=== PATIENT | female | born 1980 | race Caucasian/White ===

== ENCOUNTER 2016-12-27 12:51 | Emergency (ER) | payer MEDICARE, OTHER | END 2016-12-27 14:00 | disposition home or self-care (01) | LOC: JP.ED 12:51 | DX: Z53.21 Procedure and treatment not carried out due to patient leaving prior to being seen by health care provider (principal) ==

== ENCOUNTER 2016-12-27 16:47 | Emergency (ER) | payer MEDICARE, SELFPAY ==
[2016-12-27 17:04] VITALS: BP 164/98
[2016-12-27] MEDS ORDERED: Ketorolac 60 MG/2 ML SDV IM ONE (17:51)
[2016-12-27] MEDS ORDERED: LORazepam 2 MG/ML MDV IM ONE (17:52)
[2016-12-27] MEDS ORDERED: Benzonatate 100 MG Cap PO ONE (17:52)
--- NOTE | 2016-12-27 17:57 | EDM.PDOC ---
ED HPI Trauma - General Chief Complaint: Upper Extremity Injury/Pain Stated Complaint: FELL 1 WK AGO Time Seen by Provider: 12/27/16 17:53 Source: Reports: Patient, Old records, RN notes reviewed History Limitations: Reports: No limitations - History of Present Illness INITIAL COMMENTS - FREE TEXT/NARRATIVE: 36-year-old female presents emergency department a complaint of cough and left shoulder pain, she was evaluated in the clinic on the of this month for upper respiratory tract infection treatment was provided with symptomatic she was here earlier in the emergency department had registered this afternoon but had a prior engagement which she left without being seen she has now returnedfor evaluation Allergies/ADRs: Allergies latex Allergy (Verified 02/11/16 03:39) Itching morphine Allergy (Verified 02/11/16 03:39) Hives codeine Adverse Reaction (Verified 02/11/16 03:39) Vomiting Home Medications: Ambulatory Orders Gabapentin [Neurontin] 600 mg PO BID 06/21/13 [Confirmed 12/27/16] Cyclobenzaprine [Flexeril] 10 mg PO TID PRN 10/24/13 [Confirmed 12/27/16] Haloperidol [Haldol] 7 mg PO DAILY 10/24/13 [Confirmed 12/27/16] Haloperidol [Haldol] 10 mg PO BEDTIME 10/24/13 [Confirmed 12/27/16] Potassium Chloride [Klor-Con] 20 meq PO BID 10/24/13 [Confirmed 12/27/16] Propranolol [Inderal] 20 mg PO BID 10/24/13 [Confirmed 12/27/16] Verapamil [Calan SR] 120 mg PO QAM 10/24/13 [Confirmed 12/27/16] busPIRone [Buspar] 15 mg PO BID 10/24/13 [Confirmed 12/27/16] lamoTRIgine [Lamictal] 200 mg PO BID 10/24/13 [Confirmed 12/27/16] Albuterol Sulfate [Proair Hfa] 2 inhalation INH ASDIRECTED PRN 10/25/13 [ Confirmed 12/27/16] Fluticasone Propionate [Flovent HFA 110 MCG] 1 puff INH BID 10/25/13 [Confirmed 12/27/16] Ibuprofen [Motrin] 200 mg PO Q6H PRN 10/25/13 [Confirmed 12/27/16] Venlafaxine HCl [Venlafaxine ER] 300 mg PO DAILY 10/25/13 [Confirmed 12/27/16] Verapamil HCl [Verapamil ER] 240 mg PO QPM 10/25/13 [Confirmed 12/27/16] Benztropine [Cogentin] 1 mg PO BID 05/24/15 [Confirmed 12/27/16] medroxyPROGESTERone Acetate [Depo-Provera] 150 mg IM ASDIRECTED 02/05/16 [ Confirmed 12/27/16] Past Medical History Cardiovascular History: Reports: Hypertension Respiratory History: Reports: Asthma Gastrointestinal History: Reports: Cholelithiasis [employer] History: Reports: , 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 Depo- injections every 3 months. Musculoskeletal History: Reports: Back pain, chronic, Fracture, Fibromyalgia, Other (see below) Other Musculoskeletal History: fx r elbow Neurological History: Reports: Migraines, Seizure Psychiatric History: Reports: ADHD, Addiction, Anxiety, Bipolar, Depression Other Psychiatric History: Borderline personality disorder, schizoaffective disorder, self cutting behviors in past. Hematologic History: Reports: Anemia Other Dermatologic History: ectodermal dysplasia - Infectious Disease History Infectious Disease History: Reports: Chicken pox - Past Surgical History GI Surgical History: Reports: Bariatric procedure, Cholecystectomy, Colonoscopy , EGD, Hernia repair/other Other GI Surgeries/Procedures: tummy tuck Female Surgical History: Reports: section Musculoskeletal Surgical History: Reports: Other (see below) Other Musculoskeletal Surgeries/Procedures:: neuro stimulator implant to help with lower backpain, discectomy August 2015 Social & Family History - Family History Family Medical History: Noncontributory Endocrine/Metabolic: Reports: Diabetes, type II - Tobacco Use Smoking Status *Q: Current Every Day Smoker Years of Tobacco use: 16 Packs/Tins Daily: 1 Used Tobacco, but Quit: No Month Tobacco Last Used: August Second Hand Smoke Exposure: Yes - Caffeine Use Caffeine Use: Reports: Coffee - Alcohol Use Days Per Week of Alcohol Use: 0 Number of Drinks Per Day: 5 Total Drinks Per Week: 0 - Recreational Drug Use Recreational Drug Use: No Drug Use in Last 12 Months: Yes Recreational Drug Type: Reports: Methamphetamine Recreational Drug Use Frequency: Socially Recreational Drug Last Use: 04/05/15 Review of Systems - Review of Systems Review Of Systems: See Below Constitutional: Reports: no symptoms Eyes: Reports: no symptoms Ears: Reports: no symptoms Nose: Reports: no symptoms Mouth/Throat: Reports: no symptoms Respiratory: Reports: shortness of breath, cough. Denies: sputum Cardiovascular: Reports: chest pain (rib pain) GI/Abdominal: Reports: No symptoms Genitourinary: Reports: no symptoms Musculoskeletal: Reports: shoulder pain Trauma Exam - Physical Exam Exam: See Below Text/Narrative:: General: obese female tearful very anxious coughing, but not in any distress, alert and oriented x3 HEENT: head is atraumatic normocephalic, eyes pupils equal round reactive to light and accommodation sclera clear no conjunctivitis appreciated. Ears tympanic membranes clear and pyle landmarks and light reflex are present bilaterally canals are clear. Nose no septal deviation, nares are clear, no blood present. Mouth mucosa is moist and pink no erythema or exudate noted in soft palate, tongue is midline uvula is midline, dentures in place. Neck: Supple no thyromegaly no tracheal deviation. Nodes: Cervical nodes subclavicular nodes nontender no palpable lymphadenopathy noted. Lungs: coarse breath sounds bilaterally both upper and lower lung brown CV: tachycardic rate and rhythm S1 and S2 appreciated no murmurs rubs or gallops noted. Abdomen: Soft, obese,nontender, no palpable masses or organomegaly appreciated, no distention no guarding bowel sounds are present, . Neuro: Cranial nerves II through XII grossly intact Skin: Warm and dry, intact Course - Vital Signs Last Recorded V/S: Last Vital Signs Temp 96.4 F 12/27/16 17:03 Pulse 138 H 12/27/16 17:03 Resp 18 12/27/16 17:03 BP 164/98 H 12/27/16 17:03 Pulse Ox 98 12/27/16 17:03 - Orders/Labs/Meds Orders: Active Orders 24 hr Category Date Time Status Chest 2V [CR] Urgent Exams 12/27/16 17:51 Taken Shoulder Comp Rt [CR] Stat Exams 12/27/16 17:52 Taken Labs: Laboratory Tests 12/27/16 12/27/16 12/27/16 Range/Units 17:53 18:03 18:03 WBC 9.5 (4.5-11.0) K/uL RBC 4.14 (3.30-5.50) M/uL Hgb 14.7 (12.0-15.0) g/dL Hct 41.0 (36.0-48.0) % MCV 99 H (80-98) fL MCH 36 H (27-31) pg MCHC 36 (32-36) % Plt Count 306 (150-400) K/uL Neut % (Auto) 54 (36-66) % Lymph % (Auto) 37 (24-44) % Graham % (Auto) 6 (2-6) % Eos % (Auto) 3 (2-4) % Baso % (Auto) 1 (0-1) % Sodium 145 (140-148) mmol/L Potassium 3.9 (3.6-5.2) mmol/L Chloride 111 H (100-108) mmol/L Carbon Dioxide 17 L (21-32) mmol/L Anion Gap 20.9 H (5.0-14.0) mmol/L BUN 11 (7-18) mg/dL Creatinine 1.2 H (0.6-1.0) mg/dL Est Cr Clr Drug Dosing 61.85 mL/min Estimated GFR (MDRD) 51 L (>60) Glucose 97 (74-106) mg/dL Calcium 8.7 (8.5-10.1) mg/dL Urine Color Urine Appearance Urine pH (4.5-8.0) Ur Specific [place] (1.008-1.030) Urine Protein (NEGATIVE) mg/dL Urine Glucose (UA) (NEGATIVE) mg/dL Urine Ketones (NEGATIVE) mg/dL Urine Occult Blood (NEGATIVE) Urine Nitrite (NEGATIVE) Urine Bilirubin (NEGATIVE) Urine Urobilinogen (NORMAL) mg/dL Ur Leukocyte Esterase (NEGATIVE) Urine RBC (0-5) Urine WBC (0-5) Ur Epithelial Cells Amorphous Sediment Urine Bacteria Urine Mucus Urine Opiates Screen (NEGATIVE) Ur Oxycodone Screen (NEGATIVE) Urine Methadone Screen (NEGATIVE) Ur Propoxyphene Screen (NEGATIVE) Ur Barbiturates Screen (NEGATIVE) Ur Tricyclics Screen (NEGATIVE) Ur Phencyclidine Scrn (NEGATIVE) Ur Amphetamine Screen (NEGATIVE) U Methamphetamines Scrn (NEGATIVE) Urine MDMA Screen (NEGATIVE) U Benzodiazepines Scrn (NEGATIVE) U Cocaine Metab Screen (NEGATIVE) U Marijuana (THC) Screen (NEGATIVE) Ethyl Alcohol 112 mg/dL 03/13/17 03/13/17 Range/Units 18:11 18:11 WBC (4.5-11.0) K/uL RBC (3.30-5.50) M/uL Hgb (12.0-15.0) g/dL Hct (36.0-48.0) % MCV (80-98) fL MCH (27-31) pg MCHC (32-36) % Plt Count (150-400) K/uL Neut % (Auto) (36-66) % Lymph % (Auto) (24-44) % Graham % (Auto) (2-6) % Eos % (Auto) (2-4) % Baso % (Auto) (0-1) % Sodium (140-148) mmol/L Potassium (3.6-5.2) mmol/L Chloride (100-108) mmol/L Carbon Dioxide (21-32) mmol/L Anion Gap (5.0-14.0) mmol/L BUN (7-18) mg/dL Creatinine (0.6-1.0) mg/dL Est Cr Clr Drug Dosing mL/min Estimated GFR (MDRD) (>60) Glucose (74-106) mg/dL Calcium (8.5-10.1) mg/dL Urine Color Yellow Urine Appearance Clear Urine pH 7.0 (4.5-8.0) Ur Specific [place] 1.010 (1.008-1.030) Urine Protein Negative (NEGATIVE) mg/dL Urine Glucose (UA) Normal (NEGATIVE) mg/dL Urine Ketones Negative (NEGATIVE) mg/dL Urine Occult Blood Negative (NEGATIVE) Urine Nitrite Negative (NEGATIVE) Urine Bilirubin Negative (NEGATIVE) Urine Urobilinogen Normal (NORMAL) mg/dL Ur Leukocyte Esterase Negative (NEGATIVE) Urine RBC 0-5 (0-5) Urine WBC 0-5 (0-5) Ur Epithelial Cells Rare Amorphous Sediment Not seen Urine Bacteria Not seen Urine Mucus Not seen Urine Opiates Screen Negative (NEGATIVE) Ur Oxycodone Screen Negative (NEGATIVE) Urine Methadone Screen Negative (NEGATIVE) Ur Propoxyphene Screen Negative (NEGATIVE) Ur Barbiturates Screen Negative (NEGATIVE) Ur Tricyclics Screen Negative (NEGATIVE) Ur Phencyclidine Scrn Positive H (NEGATIVE) Ur Amphetamine Screen Negative (NEGATIVE) U Methamphetamines Scrn Negative (NEGATIVE) Urine MDMA Screen Negative (NEGATIVE) U Benzodiazepines Scrn Negative (NEGATIVE) U Cocaine Metab Screen Negative (NEGATIVE) U Marijuana (THC) Screen Negative (NEGATIVE) Ethyl Alcohol mg/dL Meds: Medications Discontinued Medications Generic Name Dose Route Start Last Admin Trade Name Eloise PRN Reason Stop Dose Admin Benzonatate 200 mg 12/27/16 17:52 12/27/16 18:02 Tessalon Perles PO 12/27/16 17:53 200 mg ONETIME ONE Administration Ketorolac Tromethamine 60 mg 12/27/16 17:51 12/27/16 18:02 Toradol IM 12/27/16 17:52 60 mg ONETIME ONE Administration Lorazepam 1 mg 12/27/16 17:52 12/27/16 18:01 Ativan IM 12/27/16 17:53 1 mg ONETIME ONE Administration Departure - Departure Time of Disposition: 18:35 Disposition: Home, Self-Care 01 Condition: good Clinical Impression: Cough Right shoulder strain Qualifiers: Encounter type: initial encounter Qualified Code(s): S46.911A - Strain of unspecified muscle, fascia and tendon at shoulder and upper arm level, right arm , initial encounter Forms: ED Department Discharge Additional Instructions: use hydrocodone as need for pain control and use Tessalon Perles as needed help suppress the cough, Please followup with your primary care provider in 3 to 5 days if not better, please call return to the emergency department with worsening of symptoms. - My Orders Last 24 Hours: My Active Orders 12/27/16 17:51 Chest 2V [CR] Urgent 12/27/16 17:52 Shoulder Comp Rt [CR] Stat - Assessment/Plan Last 24 Hours: My Active Orders 12/27/16 17:51 Chest 2V [CR] Urgent 12/27/16 17:52 Shoulder Comp Rt [CR] Stat Plan: Assessment Acuity = acute Site and laterality = post viral cough, shoulder strain right side Etiology =secondary recent urinary tract infection, shoulder strain secondary to fall one week ago Manifestations = none Location of injury = home Lab values = CBC unremarkable creatinine mildly elevated at 1.2 consistent with acute renal failure stage G2, chest x-ray and shoulder x-ray I did review films myself I cannot appreciate any acute process, the official read from radiology is pending, alcohol level 112, urine drug screen positive for PCP probable cross contaminant with dextromethorphan Plan she had good relief with the combination of Toradol and Tessalon Perles coughing significantly improved and improvement with pain of her followup with her primary care in the next 3-5 days no improvement Patient was in agreement with the plan all questions were answered, they were instructed to return to the emergency department or call for worsening symptoms. This note was dictated using [employer] voice recognition software please call with any questions.
--- NOTE | 2016-12-28 08:43 | CR ---
Chest 2V HISTORY: No Clinical Info FINDINGS: Heart size within normal limits. Pulmonary vasculature within normal limits. No evidence f or focal consolidation or cardiopulmonary process. Remote bilateral rib fractures. IMPRESSION: No radiographic evidence for acute cardiopulmonary process.
--- NOTE | 2016-12-28 08:47 | CR ---
Right shoulder. Findings: Mild degenerative changes glenohumeral joint. No fracture.
== END 2016-12-27 18:46 | disposition home or self-care (01) ==
LOC: JP.ED 16:47
DX: R05 Cough (principal); S46.911A Strain of unspecified muscle, fascia and tendon at shoulder and upper arm level, right arm, initial encounter; W19.XXXA Unspecified fall, initial encounter; I10 Essential (primary) hypertension; J45.909 Unspecified asthma, uncomplicated; F90.9 Attention-deficit hyperactivity disorder, unspecified type; F41.8 Other specified anxiety disorders; F31.9 Bipolar disorder, unspecified; F60.9 Personality disorder, unspecified; F20.9 Schizophrenia, unspecified; F17.200 Nicotine dependence, unspecified, uncomplicated; Z88.8 Allergy status to other drugs, medicaments and biological substances; Z79.899 Other long term (current) drug therapy
CPT/HCPCS: 36415; 71020; 73030; 80048; 80305; 81001; 85025; A9270; G0480; J1885; J2060; 96372; 99283; 99284-25

== ENCOUNTER 2017-01-04 07:28 | Emergency (ER) | payer MEDICARE, SELFPAY ==
[2017-01-04 07:59] VITALS: BP 155/101
[2017-01-04] MEDS ORDERED: Ketorolac 60 MG/2 ML SDV IM ONE (08:20)
[2017-01-04] MEDS ORDERED: Cyclobenzaprine 10 MG Tab PO ONE (08:20)
[2017-01-04] MEDS ORDERED: Albuterol 0.083% 2.5 MG/3 ML Neb Soln NEB ONE (08:25)
--- NOTE | 2017-01-04 08:25 | EDM.PDOC ---
ED HPI GENERAL MEDICAL PROBLEM - General Chief Complaint: General Stated Complaint: BAD COUGH/SWEATING REALLY BAD/IN PAIN Time Seen by Provider: 01/04/17 08:21 Source of Information: Reports: Patient History Limitations: Reports: No limitations - History of Present Illness INITIAL COMMENTS - FREE TEXT/NARRATIVE: t has severe pain in the left rib cage area. She is quite sweaty and crying. She did have some hydrocodone that was given to her a few days ago and they are gone. Onset: gradual Duration: Day(s):, Other (pt is coughing quite hard and she feels this is the cause of the pain. ) Location: Reports: chest Associated Symptoms: Reports: chest pain, cough - Related Data Allergies Allergy/AdvReac Type Severity Reaction Status Date / Time latex Allergy Itching Verified 02/11/16 03:39 morphine Allergy Hives Verified 02/11/16 03:39 codeine AdvReac Vomiting Verified 02/11/16 03:39 Home Meds: Home Meds Gabapentin [Neurontin] 600 mg PO BID 06/21/13 [History] Cyclobenzaprine [Flexeril] 10 mg PO TID PRN 10/24/13 [History] Haloperidol [Haldol] 7 mg PO DAILY 10/24/13 [History] Haloperidol [Haldol] 10 mg PO BEDTIME 10/24/13 [History] Propranolol [Inderal] 20 mg PO BID 10/24/13 [History] Verapamil [Calan SR] 120 mg PO QAM 10/24/13 [History] busPIRone [Buspar] 15 mg PO BID 10/24/13 [History] lamoTRIgine [Lamictal] 200 mg PO BID 10/24/13 [History] Albuterol Sulfate [Proair Hfa] 2 inhalation INH ASDIRECTED PRN 10/25/13 [History ] Fluticasone Propionate [Flovent HFA 110 MCG] 1 puff INH BID 10/25/13 [History] Ibuprofen [Motrin] 200 mg PO Q6H PRN 10/25/13 [History] Venlafaxine HCl [Venlafaxine ER] 300 mg PO DAILY 10/25/13 [History] Verapamil HCl [Verapamil ER] 240 mg PO QPM 10/25/13 [History] Benztropine [Cogentin] 1 mg PO BID 05/24/15 [History] medroxyPROGESTERone Acetate [Depo-Provera] 150 mg IM ASDIRECTED 02/05/16 [ History] Benztropine Mesylate 2 tab PO Q6HR 01/04/17 [History] Past Medical History Cardiovascular History: Reports: Hypertension Respiratory History: Reports: Asthma Gastrointestinal History: Reports: Cholelithiasis [employer] History: Reports: , 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 Depo- injections every 3 months. Musculoskeletal History: Reports: Back pain, chronic, Fracture, Fibromyalgia, Other (see below) Other Musculoskeletal History: fx r elbow Neurological History: Reports: Migraines, Seizure Psychiatric History: Reports: ADHD, Addiction, Anxiety, Bipolar, Depression Other Psychiatric History: Borderline personality disorder, schizoaffective disorder, self cutting behviors in past. Hematologic History: Reports: Anemia Other Dermatologic History: ectodermal dysplasia - Infectious Disease History Infectious Disease History: Reports: Chicken pox - Past Surgical History GI Surgical History: Reports: Bariatric procedure, Cholecystectomy, Colonoscopy , EGD, Hernia repair/other Other GI Surgeries/Procedures: tummy tuck Female Surgical History: Reports: section Musculoskeletal Surgical History: Reports: Other (see below) Other Musculoskeletal Surgeries/Procedures:: neuro stimulator implant to help with lower backpain, discectomy August 2015 Social & Family History - Family History Family Medical History: Noncontributory Endocrine/Metabolic: Reports: Diabetes, type II - Tobacco Use Smoking Status *Q: Current Every Day Smoker Years of Tobacco use: 16 Packs/Tins Daily: 0.5 Used Tobacco, but Quit: No Month Tobacco Last Used: August Second Hand Smoke Exposure: Yes - Caffeine Use Caffeine Use: Reports: Coffee - Alcohol Use Days Per Week of Alcohol Use: 0 Number of Drinks Per Day: 5 Total Drinks Per Week: 0 - Recreational Drug Use Recreational Drug Use: No Drug Use in Last 12 Months: Yes Recreational Drug Type: Reports: Methamphetamine Recreational Drug Use Frequency: Socially Recreational Drug Last Use: 04/05/15 ED ROS GENERAL - Review of Systems Review Of Systems: See Below Constitutional: Reports: night sweats, other ( pt is very diaphoretic today. ) HEENT: Reports: No symptoms Respiratory: Reports: Cough Cardiovascular: Reports: No symptoms Endocrine: Reports: no symptoms GI/Abdominal: Reports: No symptoms : Reports: no symptoms Musculoskeletal: Reports: no symptoms Skin: Reports: no symptoms ED EXAM, GENERAL - Physical Exam Exam: See Below Free Text/Narrative:: Pt arrived with pain in the left rib cage. She states this is from coughing. She is crying and seemes very upset. sHE CANCINO BEEN GOING THROUGH A DIFFICULT TIME. Exam Limited By: No limitations General Appearance: alert, anxious, moderate distress, other ( CRYING AND UPSET. ) Ears: normal TMs Nose: normal inspection Throat/Mouth: Normal inspection Head: atraumatic Neck: normal inspection Respiratory/Chest: no respiratory distress, other (PT IS TENDER IN THE LEFT RIB CAGE AREA. sHE IS NOT COUGHING ALOT. ) Cardiovascular: regular rate, rhythm GI/Abdominal: soft, non tender (Female) Exam: Deferred Rectal (Female) Exam: Deferred Back Exam: normal inspection Extremities: normal inspection Neurological: alert, oriented, normal cognition Psychiatric: depressed mood, tearful Course - Vital Signs Last Recorded V/S: Last Vital Signs Temp 36.6 C 01/04/17 07:52 Pulse 108 H 01/04/17 07:52 Resp 14 01/04/17 07:52 BP 155/101 H 01/04/17 07:52 Pulse Ox 99 01/04/17 07:52 - Orders/Labs/Meds Orders: Active Orders 24 hr Category Date Time Status RT Aerosol Therapy [RC] ASDIRECTED Care 01/04/17 08:25 Active Labs: Laboratory Tests 01/04/17 01/04/17 01/04/17 Range/Units 07:45 07:45 08:02 WBC 8.7 (4.5-11.0) K/uL RBC 4.06 (3.30-5.50) M/uL Hgb 13.9 (12.0-15.0) g/dL Hct 41.4 (36.0-48.0) % MCV 102 H (80-98) fL MCH 34 H (27-31) pg MCHC 34 (32-36) % Plt Count 312 (150-400) K/uL Neut % (Auto) 64 (36-66) % Lymph % (Auto) 25 (24-44) % [place] % (Auto) 8 H (2-6) % Eos % (Auto) 2 (2-4) % Baso % (Auto) 1 (0-1) % Sodium 139 L (140-148) mmol/L Potassium 3.9 (3.6-5.2) mmol/L Chloride 103 (100-108) mmol/L Carbon Dioxide 27 (21-32) mmol/L Anion Gap 12.9 (5.0-14.0) mmol/L BUN 10 (7-18) mg/dL Creatinine 1.1 H (0.6-1.0) mg/dL Est Cr Clr Drug Dosing 66.19 mL/min Estimated GFR (MDRD) 56 L (>60) Glucose 119 H (74-106) mg/dL Calcium 9.2 (8.5-10.1) mg/dL Total Bilirubin 0.4 (0.2-1.0) mg/dL AST 15 (15-37) U/L ALT 32 (12-78) U/L Alkaline Phosphatase 197 H (46-116) U/L Total Protein 7.3 (6.4-8.2) g/dL Albumin 3.9 (3.4-5.0) g/dL Globulin 3.4 (2.3-3.5) g/dL Albumin/Globulin Ratio 1.1 L (1.2-2.2) Urine Color Urine Appearance Urine pH (4.5-8.0) Ur Specific [place] (1.008-1.030) Urine Protein (NEGATIVE) mg/dL Urine Glucose (UA) (NEGATIVE) mg/dL Urine Ketones (NEGATIVE) mg/dL Urine Occult Blood (NEGATIVE) Urine Nitrite (NEGATIVE) Urine Bilirubin (NEGATIVE) Urine Urobilinogen (NORMAL) mg/dL Ur Leukocyte Esterase (NEGATIVE) Urine RBC (0-5) Urine WBC (0-5) Ur Epithelial Cells Amorphous Sediment Urine Bacteria Urine Mucus Urine Opiates Screen Negative (NEGATIVE) Ur Oxycodone Screen Negative (NEGATIVE) Urine Methadone Screen Negative (NEGATIVE) Ur Propoxyphene Screen Negative (NEGATIVE) Ur Barbiturates Screen Negative (NEGATIVE) Ur Tricyclics Screen Negative (NEGATIVE) Ur Phencyclidine Scrn Negative (NEGATIVE) Ur Amphetamine Screen Negative (NEGATIVE) U Methamphetamines Scrn Negative (NEGATIVE) Urine MDMA Screen Negative (NEGATIVE) U Benzodiazepines Scrn Negative (NEGATIVE) U Cocaine Metab Screen Negative (NEGATIVE) U Marijuana (THC) Screen Negative (NEGATIVE) 01/04/17 Range/Units 08:02 WBC (4.5-11.0) K/uL RBC (3.30-5.50) M/uL Hgb (12.0-15.0) g/dL Hct (36.0-48.0) % MCV (80-98) fL MCH (27-31) pg MCHC (32-36) % Plt Count (150-400) K/uL Neut % (Auto) (36-66) % Lymph % (Auto) (24-44) % [place] % (Auto) (2-6) % Eos % (Auto) (2-4) % Baso % (Auto) (0-1) % Sodium (140-148) mmol/L Potassium (3.6-5.2) mmol/L Chloride (100-108) mmol/L Carbon Dioxide (21-32) mmol/L Anion Gap (5.0-14.0) mmol/L BUN (7-18) mg/dL Creatinine (0.6-1.0) mg/dL Est Cr Clr Drug Dosing mL/min Estimated GFR (MDRD) (>60) Glucose (74-106) mg/dL Calcium (8.5-10.1) mg/dL Total Bilirubin (0.2-1.0) mg/dL AST (15-37) U/L ALT (12-78) U/L Alkaline Phosphatase (46-116) U/L Total Protein (6.4-8.2) g/dL Albumin (3.4-5.0) g/dL Globulin (2.3-3.5) g/dL Albumin/Globulin Ratio (1.2-2.2) Urine Color Yellow Urine Appearance Clear Urine pH 7.0 (4.5-8.0) Ur Specific [place] 1.010 (1.008-1.030) Urine Protein Negative (NEGATIVE) mg/dL Urine Glucose (UA) Normal (NEGATIVE) mg/dL Urine Ketones Negative (NEGATIVE) mg/dL Urine Occult Blood Negative (NEGATIVE) Urine Nitrite Negative (NEGATIVE) Urine Bilirubin Negative (NEGATIVE) Urine Urobilinogen Normal (NORMAL) mg/dL Ur Leukocyte Esterase Negative (NEGATIVE) Urine RBC 0-5 (0-5) Urine WBC 0-5 (0-5) Ur Epithelial Cells Many Amorphous Sediment Rare Urine Bacteria Not seen Urine Mucus Few Urine Opiates Screen (NEGATIVE) Ur Oxycodone Screen (NEGATIVE) Urine Methadone Screen (NEGATIVE) Ur Propoxyphene Screen (NEGATIVE) Ur Barbiturates Screen (NEGATIVE) Ur Tricyclics Screen (NEGATIVE) Ur Phencyclidine Scrn (NEGATIVE) Ur Amphetamine Screen (NEGATIVE) U Methamphetamines Scrn (NEGATIVE) Urine MDMA Screen (NEGATIVE) U Benzodiazepines Scrn (NEGATIVE) U Cocaine Metab Screen (NEGATIVE) U Marijuana (THC) Screen (NEGATIVE) Meds: Medications Discontinued Medications Generic Name Dose Route Start Last Admin Trade Name Freq PRN Reason Stop Dose Admin Albuterol 2.5 mg 01/04/17 08:25 01/04/17 08:43 Proventil Neb Soln NEB 01/04/17 08:26 2.5 mg ONETIME ONE Administration Cyclobenzaprine HCl 10 mg 01/04/17 08:20 01/04/17 08:24 Flexeril PO 01/04/17 08:21 10 mg ONETIME ONE Administration Ketorolac Tromethamine 60 mg 01/04/17 08:20 01/04/17 08:24 Toradol IM 01/04/17 08:21 60 mg ONETIME ONE Administration - Re-Assessments/Exams Free Text/Narrative Re-Assessment/Exam: 01/04/17 09:05 pt was given totodol 60mg im and flexeril 10mg. She is crying but when her mother got here she stated Nicole was very depressed and was in some legal trouble. When the situation was discussed with Nicole she mainly wanted to tlk about the pain. She did admit to being more out of control. She has not been using her effexor because she states she can,t afford it. She tapered her self off and she is now not using any. She is on medicare and she has a 75 dollar copay. I did give her a discount card which might help with coverage othrwise she should be put on another antidepressant that she can afford. pT HAD A CHEST XRAY THAT WAS FOUND TO BE NORMAL hER LABS LOOKED GOOD. 01/05/17 08:51 Departure - Departure Time of Disposition: 09:10 Disposition: Home, Self-Care 01 Condition: fair Clinical Impression: Depression, Non compliance w medication regimen, Rib pain Instructions: Rib Contusion Referrals: Arie Gurrola PA-C [Primary Care Provider] - Forms: ED Department Discharge Care Plan Goals: Heat to the lft rib cage area, keep appt with [place] on Thur. Get back on her effexor or another antidepressant, tramodol 50mg 1 tab q6h prn for pain, May use tylenol with that, cool mist humidifier - My Orders Last 24 Hours: My Active Orders 01/04/17 08:25 RT Aerosol Therapy [RC] ASDIRECTED - Assessment/Plan Last 24 Hours: My Active Orders 01/04/17 08:25 RT Aerosol Therapy [RC] ASDIRECTED
--- NOTE | 2017-01-04 10:18 | CR ---
Chest 2V INDICATION: pain in chest FINDINGS: Comparison 12/27/2016. No change. Heart size normal. Epidural leads in place. Old right rib fractures.
== END 2017-01-04 09:23 | disposition home or self-care (01) ==
LOC: JP.ED 07:28
DX: F32.9 Major depressive disorder, single episode, unspecified (principal); R07.81 Pleurodynia; I10 Essential (primary) hypertension; J45.909 Unspecified asthma, uncomplicated; F31.9 Bipolar disorder, unspecified; F41.9 Anxiety disorder, unspecified; F17.210 Nicotine dependence, cigarettes, uncomplicated; Z91.14 Patient's other noncompliance with medication regimen; Z79.899 Other long term (current) drug therapy; Z90.49 Acquired absence of other specified parts of digestive tract; Z98.84 Bariatric surgery status; Z98.890 Other specified postprocedural states; Z88.5 Allergy status to narcotic agent; Z91.040 Latex allergy status
CPT/HCPCS: 36415; 71020; 80053; 80305; 81001; 85025; 96372; 99283; 99284; A9270; J1885

== ENCOUNTER 2017-01-31 05:48 | Emergency (ER) | payer MEDICARE, SELFPAY ==
[2017-01-31 06:09] VITALS: BP 131/99
--- NOTE | 2017-01-31 06:51 | EDM.PDOC ---
[id number] 4d LEFT SIDE RIB PAIN Time Seen by Provider: 01/31/17 06:30 Source of Information: Reports: Patient History Limitations: Reports: No limitations - History of Present Illness INITIAL COMMENTS - FREE TEXT/NARRATIVE: 36-year-old female has had persistent left anterior and lateral chest wall pain for the past several weeks. She has had several x-rays all normal, has been given hydrocodone and tramadol and continues to have discomfort. It is especially bad when she coughs or breathes. No fevers or chills. Onset: unknown/unsure Location: Reports: chest Severity: mild Associated Symptoms: Reports: chest pain. Denies: cough, fever/chills, shortness of breath Left Thoracic Pain Score (Numeric/FACES): 10 - Related Data Allergies Allergy/AdvReac Type Severity Reaction Status Date / Time latex Allergy Itching Verified 02/11/16 03:39 morphine Allergy Hives Verified 02/11/16 03:39 codeine AdvReac Vomiting Verified 02/11/16 03:39 Home Meds: Home Meds Gabapentin [Neurontin] 600 mg PO BID 06/21/13 [History] Cyclobenzaprine [Flexeril] 10 mg PO TID PRN 10/24/13 [History] Haloperidol [Haldol] 7 mg PO DAILY 10/24/13 [History] Haloperidol [Haldol] 10 mg PO BEDTIME 10/24/13 [History] Propranolol [Inderal] 20 mg PO BID 10/24/13 [History] Verapamil [Calan SR] 120 mg PO QAM 10/24/13 [History] busPIRone [Buspar] 15 mg PO BID 10/24/13 [History] lamoTRIgine [Lamictal] 200 mg PO BID 10/24/13 [History] Albuterol Sulfate [Proair Hfa] 2 inhalation INH ASDIRECTED PRN 10/25/13 [History ] Fluticasone Propionate [Flovent HFA 110 MCG] 1 puff INH BID 10/25/13 [History] Ibuprofen [Motrin] 200 mg PO Q6H PRN 10/25/13 [History] Venlafaxine HCl [Venlafaxine ER] 300 mg PO DAILY 10/25/13 [History] Verapamil HCl [Verapamil ER] 240 mg PO QPM 10/25/13 [History] Benztropine [Cogentin] 1 mg PO BID 05/24/15 [History] medroxyPROGESTERone Acetate [Depo-Provera] 150 mg IM ASDIRECTED 02/05/16 [ History] Benztropine Mesylate 2 tab PO Q6HR 01/04/17 [History] Past Medical History Cardiovascular History: Reports: Hypertension Respiratory History: Reports: Asthma Gastrointestinal History: Reports: Cholelithiasis 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 Depo- injections every 3 months. Musculoskeletal History: Reports: Back pain, chronic, Fracture, Fibromyalgia, Other (see below) Other Musculoskeletal History: fx r elbow Neurological History: Reports: Migraines, Seizure Psychiatric History: Reports: ADHD, Addiction, Anxiety, Bipolar, Depression, OCD , PTSD, Schizophrenia Other Psychiatric History: Borderline personality disorder, schizoaffective disorder, self cutting behviors in past. Endocrine/Metabolic History: Reports: Obesity/BMI 30+ Hematologic History: Reports: Anemia Other Dermatologic History: ectodermal dysplasia - Infectious Disease History Infectious Disease History: Reports: Chicken pox, Influenza - Past Surgical History GI Surgical History: Reports: Bariatric procedure, Cholecystectomy, Colonoscopy , EGD, Hernia repair/other Other GI Surgeries/Procedures: tummy tuck Female Surgical History: Reports: section Musculoskeletal Surgical History: Reports: Other (see below) Other Musculoskeletal Surgeries/Procedures:: neuro stimulator implant to help with lower backpain, discectomy August 2015 Social & Family History - Family History Family Medical History: Noncontributory Endocrine/Metabolic: Reports: Diabetes, type II - Tobacco Use Smoking Status *Q: Current Every Day Smoker Years of Tobacco use: 16 Packs/Tins Daily: 1 Used Tobacco, but Quit: No Month Tobacco Last Used: August Second Hand Smoke Exposure: Yes - Caffeine Use Caffeine Use: Reports: Coffee Other Caffeine Use: 2 cups a day - Alcohol Use Days Per Week of Alcohol Use: 1 Number of Drinks Per Day: 2 Total Drinks Per Week: 2 - Recreational Drug Use Recreational Drug Use: Yes Drug Use in Last 12 Months: Yes Recreational Drug Type: Reports: Marijuana/Hashish Recreational Drug Use Frequency: Rarely Recreational Drug Last Use: 04/05/15 ED ROS GENERAL - Review of Systems Review Of Systems: See Below Constitutional: Denies: fever, chills Respiratory: Reports: Pleuritic Chest Pain. Denies: Shortness of Breath Cardiovascular: Reports: Chest pain (Musculoskeletal) GI/Abdominal: Denies: Abdominal pain, Nausea, Vomiting Skin: Reports: no symptoms Neurological: Reports: No Symptoms Psychiatric: Reports: Anxiety, Depression ED EXAM, GENERAL - Physical Exam Exam: See Below Exam Limited By: No limitations General Appearance: alert, no apparent distress Throat/Mouth: Other (Edentulous) Head: atraumatic Respiratory/Chest: no respiratory distress, lungs clear, other (She has point tenderness along the left lower lateral aspect of the costochondral junction) Cardiovascular: regular rate, rhythm GI/Abdominal: other (Obese, nontender) Course - Vital Signs Last Recorded V/S: Last Vital Signs Temp 96.5 F 01/31/17 06:00 Pulse 83 01/31/17 06:00 Resp 12 01/31/17 06:00 BP 131/99 H 01/31/17 06:00 Pulse Ox 98 01/31/17 06:00 - Orders/Labs/Meds Meds: Medications Discontinued Medications Generic Name Dose Route Start Last Admin Trade Name Eloise PRN Reason Stop Dose Admin Methylprednisolone Sodium Succinate 125 mg 01/31/17 06:52 01/31/17 07:02 Solu-Medrol IM 01/31/17 06:53 125 mg ONETIME ONE Administration - Re-Assessments/Exams Free Text/Narrative Re-Assessment/Exam: 01/31/17 06:50 Review this patient's clinic and ER records prior to seeing her and she has several chronic pain issues as well as several psychiatric issues. She does not have diabetes. She is asking for hydrocodone but has had a history of abuse. I think a short course of steroid treatment with Solu-Medrol IM may help with the local inflammatory process in the chest wall. She was given 125 mg of Solu-Medrol IM and encouraged to stay active. She can recheck in 3-5 days if not improving. Departure - Departure Time of Disposition: 07:20 Disposition: Home, Self-Care 01 Condition: good Clinical Impression: Costochondritis Instructions: Costochondritis, Inrx-or-Dcog Referrals: Arie Gurrola PA-C [Primary Care Provider] - Forms: ED Department Discharge Care Plan Goals: Use cough medicine as prescribed and decrease smoking if possible. Increase activity as tolerated and consider recheck in 4-5 days if not improving.
[2017-01-31] MEDS ORDERED: methylPREDNISolone Sodium Succinate 125 MG/2 ML SDV IM ONE (06:52)
== END 2017-01-31 07:20 | disposition home or self-care (01) ==
LOC: JP.ED 05:48
DX: M94.0 Chondrocostal junction syndrome [Tietze] (principal); I10 Essential (primary) hypertension; J45.909 Unspecified asthma, uncomplicated; F41.9 Anxiety disorder, unspecified; F32.9 Major depressive disorder, single episode, unspecified; F20.9 Schizophrenia, unspecified; F17.210 Nicotine dependence, cigarettes, uncomplicated; E66.9 Obesity, unspecified; Z68.35 Body mass index [BMI] 35.0-35.9, adult; Z98.84 Bariatric surgery status; Z90.49 Acquired absence of other specified parts of digestive tract; Z98.890 Other specified postprocedural states; Z79.899 Other long term (current) drug therapy; Z88.5 Allergy status to narcotic agent; Z91.040 Latex allergy status
CPT/HCPCS: 96372; 99285; J2930; 99283

== ENCOUNTER 2017-02-01 09:52 | Emergency (ER) | payer MEDICARE, SELFPAY ==
[2017-02-01 10:03] VITALS: BP 130/95
[2017-02-01] MEDS ORDERED: Ketorolac 60 MG/2 ML SDV IM ONE (10:19)
--- NOTE | 2017-02-01 10:56 | EDM.PDOC ---
ED HPI Trauma - General Chief Complaint: Upper Extremity Injury/Pain Stated Complaint: MUSCLE PAIN-HERE YESTERDAY, MEDS NOT WORKING Time Seen by Provider: 02/01/17 10:46 Source: Reports: Patient History Limitations: Reports: No limitations - History of Present Illness INITIAL COMMENTS - FREE TEXT/NARRATIVE: Pt arrived with chronic pain in the left rib cage area. She states it started when she had a bad cough several weeks ago. Occurred When: other ( several weeks. ) Method of Injury: unknown, other ( Pt did have a bad cough just prior to having the left chest pain start. ) Pain/Injury Location: Reports: chest Consciousness: Reports: no loss of consciousness Associated Symptoms: Reports: chest pain Allergies/ADRs: Allergies latex Allergy (Verified 02/11/16 03:39) Itching morphine Allergy (Verified 02/11/16 03:39) Hives codeine Adverse Reaction (Verified 02/11/16 03:39) Vomiting Home Medications: Ambulatory Orders Gabapentin [Neurontin] 600 mg PO BID 06/21/13 [Confirmed 02/01/17] Cyclobenzaprine [Flexeril] 10 mg PO TID PRN 10/24/13 [Confirmed 02/01/17] Haloperidol [Haldol] 7 mg PO DAILY 10/24/13 [Confirmed 02/01/17] Haloperidol [Haldol] 10 mg PO BEDTIME 10/24/13 [Confirmed 02/01/17] Propranolol [Inderal] 20 mg PO BID 10/24/13 [Confirmed 02/01/17] Verapamil [Calan SR] 120 mg PO QAM 10/24/13 [Confirmed 02/01/17] busPIRone [Buspar] 15 mg PO BID 10/24/13 [Confirmed 02/01/17] lamoTRIgine [Lamictal] 200 mg PO BID 10/24/13 [Confirmed 02/01/17] Albuterol Sulfate [Proair Hfa] 2 inhalation INH ASDIRECTED PRN 10/25/13 [ Confirmed 02/01/17] Fluticasone Propionate [Flovent HFA 110 MCG] 1 puff INH BID 10/25/13 [Confirmed 02/01/17] Ibuprofen [Motrin] 200 mg PO Q6H PRN 10/25/13 [Confirmed 02/01/17] Venlafaxine HCl [Venlafaxine ER] 300 mg PO DAILY 10/25/13 [Confirmed 02/01/17] Verapamil HCl [Verapamil ER] 240 mg PO QPM 10/25/13 [Confirmed 02/01/17] Benztropine [Cogentin] 1 mg PO BID 05/24/15 [Confirmed 02/01/17] medroxyPROGESTERone Acetate [Depo-Provera] 150 mg IM ASDIRECTED 02/05/16 [ Confirmed 02/01/17] Benztropine Mesylate 2 tab PO Q6HR 01/04/17 [Confirmed 02/01/17] Past Medical History Cardiovascular History: Reports: Hypertension Respiratory History: Reports: Asthma Gastrointestinal History: Reports: Cholelithiasis 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 Depo- injections every 3 months. Musculoskeletal History: Reports: Back pain, chronic, Fracture, Fibromyalgia, Other (see below) Other Musculoskeletal History: fx r elbow Neurological History: Reports: Migraines, Seizure Psychiatric History: Reports: ADHD, Addiction, Anxiety, Bipolar, Depression, OCD , PTSD, Schizophrenia Other Psychiatric History: Borderline personality disorder, schizoaffective disorder, self cutting behviors in past. Endocrine/Metabolic History: Reports: Obesity/BMI 30+ Hematologic History: Reports: Anemia Other Dermatologic History: ectodermal dysplasia - Infectious Disease History Infectious Disease History: Reports: Chicken pox, Influenza - Past Surgical History GI Surgical History: Reports: Bariatric procedure, Cholecystectomy, Colonoscopy , EGD, Hernia repair/other Other GI Surgeries/Procedures: tummy tuck Female Surgical History: Reports: section Musculoskeletal Surgical History: Reports: Other (see below) Other Musculoskeletal Surgeries/Procedures:: neuro stimulator implant to help with lower backpain, discectomy August 2015 Social & Family History - Family History Family Medical History: Noncontributory Endocrine/Metabolic: Reports: Diabetes, type II - Tobacco Use Smoking Status *Q: Current Every Day Smoker Years of Tobacco use: 16 Packs/Tins Daily: 1 Used Tobacco, but Quit: No Month Tobacco Last Used: August Second Hand Smoke Exposure: Yes - Caffeine Use Caffeine Use: Reports: Coffee Other Caffeine Use: 2 cups a day - Alcohol Use Days Per Week of Alcohol Use: 2 Number of Drinks Per Day: 2 Total Drinks Per Week: 4 - Recreational Drug Use Recreational Drug Use: No Drug Use in Last 12 Months: Yes Recreational Drug Type: Reports: Marijuana/Hashish Recreational Drug Use Frequency: Rarely Recreational Drug Last Use: 04/05/15 Review of Systems - Review of Systems Review Of Systems: See Below Constitutional: Reports: no symptoms Eyes: Reports: no symptoms Ears: Reports: no symptoms Nose: Reports: no symptoms Mouth/Throat: Reports: no symptoms Respiratory: Reports: Other (Pain in the left chest. ) Cardiovascular: Reports: no symptoms GI/Abdominal: Reports: No symptoms Genitourinary: Reports: no symptoms Musculoskeletal: Reports: no symptoms Skin: Reports: no symptoms Neurological: Reports: No Symptoms Psychiatric: Reports: depression, anxiety Trauma Exam - Physical Exam Exam: See Below Text/Narrative:: Pt arrived with pain in left rib area. She was seen last nite and was given solumedrol. Exam Limited By: Other (Pain with deep breathing) Head: Reports: atraumatic Ears: Reports: normal TMs Nose: Reports: normal inspection Throat/Mouth: Reports: Normal inspection Neck: Reports: normal inspection Respiratory Exam: Reports: rib tenderness, left, other (Pain with deep breathing. ) Cardiovascular: Reports: regular rate, rhythm GI/Abdominal: Reports: soft, non tender Rectal (Female) Exam: Deferred Back: Reports: normal inspection Extremities: Reports: other ( Pt has a unhealed fracture ) Neurologic: Reports: alert, oriented x 3 Course - Vital Signs Last Recorded V/S: Last Vital Signs Temp 36.2 C 02/01/17 10:03 Pulse 103 H 02/01/17 10:03 Resp 18 02/01/17 10:03 BP 130/95 H 02/01/17 10:03 Pulse Ox 96 02/01/17 10:03 - Orders/Labs/Meds Labs: Laboratory Tests 02/01/17 02/01/17 02/01/17 Range/Units 10:19 10:19 10:19 WBC 12.1 H (4.5-11.0) K/uL RBC 4.02 (3.30-5.50) M/uL Hgb 14.0 (12.0-15.0) g/dL Hct 40.0 (36.0-48.0) % MCV 100 H (80-98) fL MCH 35 H (27-31) pg MCHC 35 (32-36) % Plt Count 253 (150-400) K/uL Neut % (Auto) 71 H (36-66) % Lymph % (Auto) 21 L (24-44) % [place] % (Auto) 7 H (2-6) % Eos % (Auto) 1 L (2-4) % Baso % (Auto) 0 (0-1) % ESR 21 (0-25) mm/hr Sodium 137 L (140-148) mmol/L Potassium 3.3 L (3.6-5.2) mmol/L Chloride 102 (100-108) mmol/L Carbon Dioxide 22 (21-32) mmol/L Anion Gap 16.3 H (5.0-14.0) mmol/L BUN 14 (7-18) mg/dL Creatinine 1.2 H (0.6-1.0) mg/dL Est Cr Clr Drug Dosing 61.93 mL/min Estimated GFR (MDRD) 51 L (>60) Glucose 93 (74-106) mg/dL Calcium 8.9 (8.5-10.1) mg/dL Total Bilirubin 0.4 (0.2-1.0) mg/dL AST 14 L (15-37) U/L ALT 24 (12-78) U/L Alkaline Phosphatase 230 H (46-116) U/L Total Protein 6.9 (6.4-8.2) g/dL Albumin 3.6 (3.4-5.0) g/dL Globulin 3.3 (2.3-3.5) g/dL Albumin/Globulin Ratio 1.1 L (1.2-2.2) Meds: Medications Discontinued Medications Generic Name Dose Route Start Last Admin Trade Name Freq PRN Reason Stop Dose Admin Ketorolac Tromethamine 60 mg 02/01/17 10:19 02/01/17 10:26 Toradol IM 02/01/17 10:20 60 mg ONETIME ONE Administration - Re-Assessments/Exams Free Text/Narrative Re-Assessment/Exam: 02/01/17 11:28 Pt has had numerous chest xrays which do not show anything. Because of the ongoing pain a cat scan of the chest will be obtained. This showed a older rib fracture at the 4th rib wjhich has callus formation. There is a acute rib fracture of the 5th and 6th ribs. She has not had a recent fall. Departure - Departure Time of Disposition: 11:30 Disposition: Home, Self-Care 01 Condition: fair Clinical Impression: Rib fractures Forms: ED Department Discharge Care Plan Goals: rib binder, encourage deep breathing, incentive spirometer, tramodol 50mg q6h prn for pain, cont flexeril, appt with Arie Gurrola in 1 week, If not improving a intercostal block might be considered.
--- NOTE | 2017-02-01 11:03 | CT ---
CT chest without contrast. Indication: Left chest wall pain. Total DLP 824 Findings: No enlarged mediastinal or hilar adenopathy. Right lung is clear. Old right rib fractures. These appear healed. Left fourth rib fracture demonstrates callus formation. Lucency remains. No so ft tissue component. There is a left fifth rib fracture which appears acute with mild soft tissue co mponent. This is just at the level of the left breast and left axilla. The left sixth rib is also ac utely fractured. No displacement of the left sixth rib. No definitive left-sided pneumothorax. No fo aicha consolidation. Tiny focus of air superficial to the left rib fracture. This is at the left sixth rib. Adrenal glands are within normal limits. Post surgical changes to the stomach. Impression: 1. Acute left fifth and left sixth rib fractures.
== END 2017-02-01 11:42 | disposition home or self-care (01) ==
LOC: JP.ED 09:52
DX: S22.42XA Multiple fractures of ribs, left side, initial encounter for closed fracture (principal); I10 Essential (primary) hypertension; J45.909 Unspecified asthma, uncomplicated; F41.9 Anxiety disorder, unspecified; F32.9 Major depressive disorder, single episode, unspecified; F31.9 Bipolar disorder, unspecified; F20.9 Schizophrenia, unspecified; F17.210 Nicotine dependence, cigarettes, uncomplicated; E66.9 Obesity, unspecified; Z68.35 Body mass index [BMI] 35.0-35.9, adult; Z79.899 Other long term (current) drug therapy; Z90.49 Acquired absence of other specified parts of digestive tract; Z98.84 Bariatric surgery status; Z98.890 Other specified postprocedural states; Z88.5 Allergy status to narcotic agent; Z91.040 Latex allergy status
CPT/HCPCS: 36415; 71250; 80053; 85025; 85651; 96372; 99284; J1885; 99283

== ENCOUNTER 2017-04-20 10:48 | Emergency (ER) | payer MEDICARE, BC, OTHER ==
[2017-04-20 11:16] VITALS: BP 124/88
--- NOTE | 2017-04-20 12:20 | EDM.PDOC ---
ED HPI GENERAL MEDICAL PROBLEM - General Chief Complaint: Lower Extremity Injury/Pain Stated Complaint: RT FOOT PAIN Time Seen by Provider: 04/20/17 12:10 Source of Information: Reports: Patient History Limitations: Reports: No Limitations - History of Present Illness INITIAL COMMENTS - FREE TEXT/NARRATIVE: This patient kicked a door a few weeks ago and was had some x-rays done of her right foot and was found to be normal. She was put in some kind of a lace up brace but says it didn't help she is not wearing it anymore. She supposed to see her doctor tomorrow. The foot continues to hurt around her toes and the lateral side of the foot. She is wearing some very light weight flexible shoes that don't give any report. She said she used to have some orthopedic shoes but her dog ate them. - Related Data Allergies Allergy/AdvReac Type Severity Reaction Status Date / Time latex Allergy Itching Verified 02/11/16 03:39 morphine Allergy Hives Verified 02/11/16 03:39 codeine AdvReac Vomiting Verified 02/11/16 03:39 Home Meds: Home Meds Gabapentin [Neurontin] 600 mg PO BID 06/21/13 [History] Cyclobenzaprine [Flexeril] 10 mg PO TID PRN 10/24/13 [History] Haloperidol [Haldol] 7 mg PO DAILY 10/24/13 [History] Haloperidol [Haldol] 10 mg PO BEDTIME 10/24/13 [History] Propranolol [Inderal] 20 mg PO BID 10/24/13 [History] Verapamil [Calan SR] 120 mg PO QAM 10/24/13 [History] busPIRone [Buspar] 15 mg PO BID 10/24/13 [History] lamoTRIgine [Lamictal] 200 mg PO BID 10/24/13 [History] Albuterol Sulfate [Proair Hfa] 2 inhalation INH ASDIRECTED PRN 10/25/13 [History ] Fluticasone Propionate [Flovent HFA 110 MCG] 1 puff INH BID 10/25/13 [History] Ibuprofen [Motrin] 200 mg PO Q6H PRN 10/25/13 [History] Venlafaxine HCl [Venlafaxine ER] 300 mg PO DAILY 10/25/13 [History] Verapamil HCl [Verapamil ER] 240 mg PO QPM 10/25/13 [History] Benztropine [Cogentin] 1 mg PO BID 05/24/15 [History] medroxyPROGESTERone Acetate [Depo-Provera] 150 mg IM ASDIRECTED 02/05/16 [ History] Benztropine Mesylate 2 tab PO Q6HR 01/04/17 [History] Past Medical History Cardiovascular History: Reports: Hypertension Respiratory History: Reports: Asthma Gastrointestinal History: Reports: Cholelithiasis 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 Depo- injections every 3 months. Musculoskeletal History: Reports: Back Pain, Chronic, Fracture, Fibromyalgia, Other (See Below) Other Musculoskeletal History: fx r elbow Neurological History: Reports: Migraines, Seizure Psychiatric History: Reports: ADHD, Addiction, Anxiety, Bipolar, Depression, OCD , PTSD, Schizophrenia Other Psychiatric History: Borderline personality disorder, schizoaffective disorder, self cutting behviors in past. Endocrine/Metabolic History: Reports: Obesity/BMI 30+ Hematologic History: Reports: Anemia Other Dermatologic History: ectodermal dysplasia - Infectious Disease History Infectious Disease History: Reports: Chicken Pox, MRSA - Past Surgical History GI Surgical History: Reports: Bariatric Procedure, Cholecystectomy, Colonoscopy , EGD, Hernia Repair/Other Female Surgical History: Reports: Section Musculoskeletal Surgical History: Reports: Other (See Below) Social & Family History - Family History Family Medical History: Noncontributory Endocrine/Metabolic: Reports: Diabetes, type II - Tobacco Use Smoking Status *Q: Current Every Day Smoker Years of Tobacco use: 20 Packs/Tins Daily: 1 Used Tobacco, but Quit: No Month Tobacco Last Used: August Second Hand Smoke Exposure: Yes - Caffeine Use Caffeine Use: Reports: Coffee Other Caffeine Use: 4 cups of coffee - Alcohol Use Days Per Week of Alcohol Use: 3 Number of Drinks Per Day: 1 Total Drinks Per Week: 3 - Recreational Drug Use Recreational Drug Use: No Drug Use in Last 12 Months: Yes Recreational Drug Type: Reports: Marijuana/Hashish Recreational Drug Use Frequency: Rarely Recreational Drug Last Use: 04/05/15 Review of Systems - Review of Systems Review Of Systems: ROS reveals no pertinent complaints other than HPI. ED EXAM, GENERAL - Physical Exam Exam: See Below Exam Limited By: No Limitations General Appearance: Alert, WD/WN, No Apparent Distress Extremities: Other (Generally a normal appearing foot she has good range of motion of all the toes there is just minimal tenderness in the area. She is able to bear weight fully.) Course - Vital Signs Last Recorded V/S: Last Vital Signs Temp 36.1 C 04/20/17 11:14 Pulse 88 04/20/17 11:14 Resp 15 04/20/17 11:14 BP 124/88 04/20/17 11:14 Pulse Ox 100 04/20/17 11:14 Departure - Departure Time of Disposition: 12:19 Disposition: Home, Self-Care 01 Condition: Fair Clinical Impression: Right foot pain - Discharge Information Forms: ED Department Discharge Additional Instructions: Follow-up with your doctor tomorrow as planned. Wearing some more substantial shoes that will gave your foot some support may be helpful.
== END 2017-04-20 12:30 | disposition home or self-care (01) ==
LOC: JP.ED 10:48
DX: M79.671 Pain in right foot (principal); J45.909 Unspecified asthma, uncomplicated; I10 Essential (primary) hypertension; F41.9 Anxiety disorder, unspecified; F32.9 Major depressive disorder, single episode, unspecified; F17.210 Nicotine dependence, cigarettes, uncomplicated; E66.9 Obesity, unspecified; Z90.49 Acquired absence of other specified parts of digestive tract; Z98.890 Other specified postprocedural states; Z98.84 Bariatric surgery status; Z79.899 Other long term (current) drug therapy; Z91.040 Latex allergy status; Z88.5 Allergy status to narcotic agent; Z86.2 Personal history of diseases of the blood and blood-forming organs and certain disorders involving the immune mechanism
CPT/HCPCS: 99283; 99284

== ENCOUNTER 2017-07-04 10:39 | Day surgery (SDC) | payer MEDICARE, BC, SELFPAY ==
[2017-07-04] MEDS ORDERED: Midazolam 1 MG/ML 2 ML SDV ONE (10:40)
[2017-07-04] MEDS ORDERED: fentaNYL 100 MCG/2 ML SDV ONE ×2 (10:40→12:14)
[2017-07-04] MEDS ORDERED: Propofol 200 MG/20 ML SDV ONE ×2 (10:40→12:25)
[2017-07-04] MEDS ORDERED: ceFAZolin 2 GM in Sodium Chloride 0.9% 50 ML IV ONE (11:00)
[2017-07-04] MEDS ORDERED: Lactated Ringers 1,000 ML IV SCH (11:00)
[2017-07-04] MEDS ORDERED: Lidocaine 2% 20 ML MDV ONE (11:22)
[2017-07-04] MEDS ORDERED: Bupivacaine 0.5% 50 ML MDV ONE (11:22)
[2017-07-04 13:52] VITALS: BP 120/74
--- NOTE | 2017-07-04 19:59 | OR ---
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 PREOPERATIVE DIAGNOSIS: Tailor's bunion, right foot. POSTOPERATIVE DIAGNOSIS: Tailor's bunion, right foot. PROCEDURE: Simple tailor's bunionectomy, right foot. ANESTHESIA: Local with IV sedation. HEMOSTASIS: Obtained with an ankle tourniquet in the right ankle at 250 mmHg. ESTIMATED BLOOD LOSS: Less than 5 mL. MATERIALS: None. INJECTABLES: 10 mL of 1:1 mixture of Marcaine, 0.5% plain, and lidocaine 2% plain were injected postoperatively. PATHOLOGY: None. CONDITION: Stable. INDICATIONS FOR SURGERY: Painful tailor's bunion, right foot, that was unresponsive to conservative measures. PROCEDURE IN DETAIL: The patient was brought to the operating room, placed on the operating table in supine position. Following IV sedation, anesthesia was obtained with a total of 10 mL of 1:1 mixture of lidocaine, 2% plain Marcaine, and 0.5% plain. The right foot was scrubbed, prepped, and draped in the usual aseptic manner, raised to 60 degrees for hemostasis and exsanguinated using Esmarch bandage. Tourniquet was inflated. Foot was lowered to the table. Skin incision was made on the dorsal lateral aspect of the right foot. Dorsal lateral aspect of the right 5th metatarsophalangeal joint incisions were deepened through subcutaneous tissues with care taken to identify and retract all vital neurovascular structures. Following subcutaneous dissection, incision was made into the joint capsule of the 5th metatarsophalangeal joint. The capsule was carefully dissected off the lateral aspect of the 5th metatarsal head. The 5th metatarsal head was examined both visually and fluoroscopically and the lateral prominence of the 5th metatarsal head was removed with a sagittal saw, and then the removal was checked fluoroscopically and visually and found to be anatomic. The incision was flushed with copious amounts of sterile saline and then capsular closure. The 5th metatarsophalangeal joint was closed with 3-0 Vicryl, subcutaneous closure with 3-0 Vicryl, and skin closure with 4-0 Prolene in a horizontal mattress configuration. Foot was dressed with Xeroform, 4x4s, Kerlix, and Coban. The patient was returned to recovery room with vital signs stable and vascular status intact to both feet. The patient was told to rest, ice, and elevate the right foot, maintain weightbearing, and put partial weight on the right heel for transfer only. Do wear her Cam boot at all times and ambulate with knee scooter. The patient to return to clinic with Dr. Lauren in one week at which time, she will be re-evaluated. She was given both verbal and written instructions to go to the emergency room immediately if she has any nausea, vomiting, fever, chills, chest pain, calf pain, or difficulty breathing. Pratik Lauren DPM /[id number]
== END 2017-07-04 14:45 | disposition home or self-care (01) ==
LOC: JP.SDS 10:39
PROVIDERS: ATTEND Podiatrist Foot & Ankle Surgery
DX: M21.621 Bunionette of right foot (principal); N17.9 Acute kidney failure, unspecified; J45.909 Unspecified asthma, uncomplicated; F41.9 Anxiety disorder, unspecified; Z98.84 Bariatric surgery status; F31.9 Bipolar disorder, unspecified; F32.9 Major depressive disorder, single episode, unspecified; I10 Essential (primary) hypertension; E66.01 Morbid (severe) obesity due to excess calories; Z88.8 Allergy status to other drugs, medicaments and biological substances; Z91.040 Latex allergy status; Z90.49 Acquired absence of other specified parts of digestive tract; Z98.890 Other specified postprocedural states; Z79.84 Long term (current) use of oral hypoglycemic drugs; Z79.899 Other long term (current) drug therapy; F17.210 Nicotine dependence, cigarettes, uncomplicated
CPT/HCPCS: 28110; 76001; J0690; J2250; J2704; J3010; J7050; J7120

== ENCOUNTER 2017-08-18 23:07 | Emergency (ER) | payer MEDICARE, BC, OTHER ==
[2017-08-19 00:18] VITALS: BP 118/76
[2017-08-19] MEDS ORDERED: HYDROmorphone 1 MG/ML Syringe IM ONE (00:25)
--- NOTE | 2017-08-19 00:31 | EDM.PDOC ---
ED HPI GENERAL MEDICAL PROBLEM - General Chief Complaint: Lower Extremity Injury/Pain Stated Complaint: R FOOT PAIN Time Seen by Provider: 08/19/17 00:26 Source of Information: Reports: Patient, RN Notes Reviewed History Limitations: Reports: No Limitations - History of Present Illness INITIAL COMMENTS - FREE TEXT/NARRATIVE: 37-year-old female presents emergency department today with a complaint of pain , she recently underwent bunion surgery July 04 has been using a Cam Walker boot however today she tried to use her regular shoe this has exacerbated her pain she does have a follow-up appointment with both her primary care and her surgeon within the next couple of days Right Feet Pain Score (Numeric/FACES): 9 - Related Data Allergies Allergy/AdvReac Type Severity Reaction Status Date / Time latex Allergy Itching Verified 07/04/17 11:03 morphine Allergy Hives Verified 07/04/17 11:03 codeine AdvReac Vomiting Verified 07/04/17 11:03 Home Meds: Home Meds Gabapentin [Neurontin] 800 mg PO TID 06/21/13 [History] Cyclobenzaprine [Flexeril] 10 mg PO TID PRN 10/24/13 [History] Haloperidol [Haldol] 7 mg PO QAM 10/24/13 [History] Propranolol [Inderal] 20 mg PO BID 10/24/13 [History] Verapamil [Calan SR] 120 mg PO QAM 10/24/13 [History] busPIRone [Buspar] 30 mg PO BID 10/24/13 [History] lamoTRIgine [Lamictal] 200 mg PO BID 10/24/13 [History] Albuterol Sulfate [Proair Hfa] 2 inhalation INH Q4H PRN 10/25/13 [History] Fluticasone Propionate [Flovent HFA 110 MCG] 1 puff INH BID 10/25/13 [History] Ibuprofen [Motrin] 800 mg PO Q8H PRN 10/25/13 [History] Venlafaxine HCl [Venlafaxine ER] 300 mg PO DAILY 10/25/13 [History] Verapamil HCl [Verapamil ER] 240 mg PO QPM 10/25/13 [History] medroxyPROGESTERone Acetate [Depo-Provera] 150 mg IM ASDIRECTED 02/05/16 [ History] Benztropine Mesylate 2 tab PO BID 01/04/17 [History] Chromium Amino Acid Chelate [Chromium] 400 mcg PO DAILY 07/01/17 [History] Lidocaine 5% [Lidoderm 5%] 1 patch TOP DAILY 07/01/17 [History] Mometasone Furoate [Asmanex 220 MCG] 1 puff IH BID 07/01/17 [History] Topiramate 50 mg PO BID 07/01/17 [History] hydrOXYzine Pamoate [Vistaril] 25 mg PO TID PRN 07/01/17 [History] metFORMIN [Glucophage] 1,000 mg PO BIDMEALS 07/01/17 [History] Haloperidol 10 mg PO BEDTIME 07/04/17 [History] Past Medical History Cardiovascular History: Reports: Hypertension Respiratory History: Reports: Asthma, Bronchitis, Recurrent Gastrointestinal History: Reports: Cholelithiasis, Other (See Below) Other Gastrointestinal History: fatty liver Genitourinary History: Reports: Other (See Below) Other Genitourinary History: kidneys 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 Depo- injections every 3 months. Genital herpes Musculoskeletal History: Reports: Back Pain, Chronic, Fracture, Fibromyalgia, Other (See Below) Other Musculoskeletal History: fx r elbow, DJD Neurological History: Reports: Migraines, Seizure Psychiatric History: Reports: ADHD, Addiction, Anxiety, Bipolar, Depression, OCD , PTSD, Schizophrenia Other Psychiatric History: Borderline personality disorder, schizoaffective disorder, self cutting behviors in past. Chronic pain sydrome Endocrine/Metabolic History: Reports: Obesity/BMI 30+, Osteopenia Hematologic History: Reports: Anemia, B12 Deficiency, Iron Deficiency Other Dermatologic History: ectodermal dysplasia - Infectious Disease History Infectious Disease History: Reports: Chicken Pox, MRSA - Past Surgical History HEENT Surgical History: Reports: Oral Surgery, Other (See Below) Other HEENT Surgeries/Procedures: dental implants, some removed GI Surgical History: Reports: Bariatric Procedure, Hernia, Abdominal, Other ( See Below) Other GI Surgeries/Procedures: panniculectomy Neurological Surgical History: Reports: Lumbar Spine Musculoskeletal Surgical History: Reports: Other (See Below) Other Musculoskeletal Surgeries/Procedures:: neuro stimulator implant to help with lower backpain, discectomy August 2015. foot surg. Social & Family History - Family History Family Medical History: Noncontributory Endocrine/Metabolic: Reports: Diabetes, type II - Tobacco Use Smoking Status *Q: Current Every Day Smoker Years of Tobacco use: 16 Packs/Tins Daily: 1.5 Used Tobacco, but Quit: No Month Tobacco Last Used: August Second Hand Smoke Exposure: Yes - Caffeine Use Caffeine Use: Reports: Coffee Other Caffeine Use: 4 cups of coffee - Alcohol Use Days Per Week of Alcohol Use: 1 Number of Drinks Per Day: 6 Total Drinks Per Week: 6 - Recreational Drug Use Recreational Drug Use: Yes Drug Use in Last 12 Months: Yes Recreational Drug Type: Reports: Marijuana/Hashish Recreational Drug Use Frequency: Not Used In Over 6 Months Recreational Drug Last Use: 04/05/15 Review of Systems - Review of Systems Review Of Systems: See Below Musculoskeletal: Reports: Other (Foot pain right) Neurological: Reports: Tingling ED EXAM, GENERAL - Physical Exam Exam: See Below Free Text/Narrative:: Examination of the right foot surgical wound is clean dry intact pedal pulses + 2 she is able to ambulate with the Cam Walker in place Exam Limited By: No Limitations General Appearance: Alert, WD/WN, No Apparent Distress Respiratory/Chest: No Respiratory Distress Course - Vital Signs Last Recorded V/S: Last Vital Signs Temp 97.3 F 08/19/17 00:17 Pulse 93 08/19/17 00:17 Resp 16 08/19/17 00:17 BP 118/76 08/19/17 00:17 Pulse Ox 100 08/19/17 00:17 - Orders/Labs/Meds Orders: Active Orders 24 hr Category Date Time Status HYDROmorphone [Dilaudid] Med 08/19/17 00:25 Once 1 mg IM ONETIME ONE Departure - Departure Time of Disposition: 00:30 Disposition: Home, Self-Care 01 Condition: Good Clinical Impression: Right foot pain - Discharge Information Referrals: Arie Gurrola PA-C [Primary Care Provider] - Additional Instructions: Use hydrocodone as needed for breakthrough pain continue to use ibuprofen for baseline pain control, please keep your follow-up appointments with your primary care provider and your cream maker, call or return to the emergency department worsening of symptoms - My Orders Last 24 Hours: My Active Orders 08/19/17 00:25 HYDROmorphone [Dilaudid] 1 mg IM ONETIME ONE - Assessment/Plan Last 24 Hours: My Active Orders 08/19/17 00:25 HYDROmorphone [Dilaudid] 1 mg IM ONETIME ONE Plan: Assessment Acuity = acute Site and laterality = exacerbation of pain post operative bunion surgery Etiology = probable overuse Manifestations = none Location of injury = Home Lab values = none Plan She was given 1 mg Dilaudid IM in the emergency department prescription written for hydrocodone/Tylenol 5/325 one tablet by mouth 3 times a day when necessary total #6 she is to keep her follow-up appointments with her primary care and her cream maker Patient was in agreement with the plan all questions were answered, they were instructed to return to the emergency department or call for worsening symptoms. This note was dictated using [employer] voice recognition software please call with any questions.
== END 2017-08-19 00:52 | disposition home or self-care (01) ==
LOC: JP.ED 23:07
DX: G89.18 Other acute postprocedural pain (principal); M79.671 Pain in right foot; F17.210 Nicotine dependence, cigarettes, uncomplicated; J45.909 Unspecified asthma, uncomplicated; F31.9 Bipolar disorder, unspecified; E66.9 Obesity, unspecified; Z79.899 Other long term (current) drug therapy; Z91.040 Latex allergy status; Z88.5 Allergy status to narcotic agent
CPT/HCPCS: 96372; 99283; J1170

== ENCOUNTER 2017-08-26 17:37 | Emergency (ER) | payer MEDICARE, BC ==
[2017-08-26 18:01] VITALS: BP 149/109
--- NOTE | 2017-08-26 18:20 | EDM.PDOC ---
ED HPI GENERAL MEDICAL PROBLEM - General Chief Complaint: Lower Extremity Injury/Pain Stated Complaint: PAIN IN KNEE/HAD INJECTION Time Seen by Provider: 08/26/17 18:00 Source of Information: Reports: EMS, Family History Limitations: Reports: Altered Mental Status - History of Present Illness INITIAL COMMENTS - FREE TEXT/NARRATIVE: 37-year-old female with chronic foot pain, also experiencing some left knee pain after an injection recently in the orthopedic clinic. She'll has a long history of narcotic abuse dependence and alcoholism. She called the clinic today to let him know that her foot and knee were hurting, they told her that was to be expected and they'll recheck her on Tuesday. She came in [facility] for some pain relief. Location: Reports: Lower Extremity, Left, Lower Extremity, Right Quality: Reports: Ache Severity: Moderate Associated Symptoms: Reports: No Other Symptoms - Related Data Allergies Allergy/AdvReac Type Severity Reaction Status Date / Time latex Allergy Itching Verified 08/19/17 00:32 morphine Allergy Hives Verified 08/19/17 00:32 codeine AdvReac Vomiting Verified 08/19/17 00:32 Home Meds: Home Meds Gabapentin [Neurontin] 800 mg PO TID 06/21/13 [History] Cyclobenzaprine [Flexeril] 10 mg PO TID PRN 10/24/13 [History] Haloperidol [Haldol] 7 mg PO QAM 10/24/13 [History] Propranolol [Inderal] 20 mg PO BID 10/24/13 [History] Verapamil [Calan SR] 120 mg PO QAM 10/24/13 [History] busPIRone [Buspar] 30 mg PO BID 10/24/13 [History] lamoTRIgine [Lamictal] 200 mg PO BID 10/24/13 [History] Albuterol Sulfate [Proair Hfa] 2 inhalation INH Q4H PRN 10/25/13 [History] Fluticasone Propionate [Flovent HFA 110 MCG] 1 puff INH BID 10/25/13 [History] Ibuprofen [Motrin] 800 mg PO Q8H PRN 10/25/13 [History] Venlafaxine HCl [Venlafaxine ER] 300 mg PO DAILY 10/25/13 [History] Verapamil HCl [Verapamil ER] 240 mg PO QPM 10/25/13 [History] medroxyPROGESTERone Acetate [Depo-Provera] 150 mg IM ASDIRECTED 02/05/16 [ History] Benztropine Mesylate 2 tab PO BID 01/04/17 [History] Chromium Amino Acid Chelate [Chromium] 400 mcg PO DAILY 07/01/17 [History] Lidocaine 5% [Lidoderm 5%] 1 patch TOP DAILY 07/01/17 [History] Topiramate 225 mg PO BID 07/01/17 [History] metFORMIN [Glucophage] 1,000 mg PO BIDMEALS 07/01/17 [History] Haloperidol 10 mg PO BEDTIME 07/04/17 [History] Past Medical History Cardiovascular History: Reports: Hypertension Respiratory History: Reports: Asthma, Bronchitis, Recurrent Gastrointestinal History: Reports: Cholelithiasis, Other (See Below) Other Gastrointestinal History: fatty liver Genitourinary History: Reports: Other (See Below) Other Genitourinary History: kidneys 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 Depo- injections every 3 months. Genital herpes Musculoskeletal History: Reports: Back Pain, Chronic, Fracture, Fibromyalgia, Other (See Below) Other Musculoskeletal History: fx r elbow, DJD Neurological History: Reports: Migraines, Seizure Psychiatric History: Reports: ADHD, Addiction, Anxiety, Bipolar, Depression, OCD , PTSD, Schizophrenia Other Psychiatric History: Borderline personality disorder, schizoaffective disorder, self cutting behviors in past. Chronic pain sydrome Endocrine/Metabolic History: Reports: Obesity/BMI 30+, Osteopenia Hematologic History: Reports: Anemia, B12 Deficiency, Iron Deficiency Other Dermatologic History: ectodermal dysplasia - Infectious Disease History Infectious Disease History: Reports: Chicken Pox, MRSA - Past Surgical History HEENT Surgical History: Reports: Oral Surgery, Other (See Below) Other HEENT Surgeries/Procedures: dental implants, some removed GI Surgical History: Reports: Bariatric Procedure, Hernia, Abdominal, Other ( See Below) Other GI Surgeries/Procedures: panniculectomy Neurological Surgical History: Reports: Lumbar Spine Musculoskeletal Surgical History: Reports: Other (See Below) Other Musculoskeletal Surgeries/Procedures:: neuro stimulator implant to help with lower backpain, discectomy August 2015. foot surg. Social & Family History - Family History Family Medical History: Noncontributory Endocrine/Metabolic: Reports: Diabetes, type II - Tobacco Use Smoking Status *Q: Current Every Day Smoker Years of Tobacco use: 16 Packs/Tins Daily: 1.5 Used Tobacco, but Quit: No Month Tobacco Last Used: August Second Hand Smoke Exposure: Yes - Caffeine Use Caffeine Use: Reports: Coffee Other Caffeine Use: 4 cups of coffee - Alcohol Use Days Per Week of Alcohol Use: 1 Number of Drinks Per Day: 6 Total Drinks Per Week: 6 - Recreational Drug Use Recreational Drug Use: Yes Drug Use in Last 12 Months: Yes Recreational Drug Type: Reports: Marijuana/Hashish Recreational Drug Use Frequency: Not Used In Over 6 Months Recreational Drug Last Use: 04/05/15 Review of Systems - Review of Systems Review Of Systems: See Below Respiratory: Reports: No Symptoms Skin: Reports: No Symptoms Neurological: Reports: Paresthesia (complains of numbness and paresthesias over the lateral aspect of the right foot) ED EXAM, GENERAL - Physical Exam Exam: See Below Exam Limited By: No Limitations General Appearance: Alert, No Apparent Distress Respiratory/Chest: No Respiratory Distress Extremities: Other (She does have some limitations of extension of the left knee due to discomfort. The surgical wound on her right foot looks well-healed, there is some discomfort with movement of the small toe.) Course - Vital Signs Last Recorded V/S: Last Vital Signs Temp 97.7 F 08/26/17 18:15 Pulse 100 08/26/17 18:15 Resp 16 08/26/17 18:15 BP 149/109 H 08/26/17 18:15 Pulse Ox 98 08/26/17 18:15 - Re-Assessments/Exams Free Text/Narrative Re-Assessment/Exam: 08/26/17 18:47 She is only taking ibuprofen, not taking Tylenol. I told her that narcotics for this is bad for her, and be very unwise and she should try to keep controlling her pain as discussed with the clinic physicians. She then asked for some Toradol, I will give her 20 Toradol to take one every 6-8 hours along with Tylenol, its very important to take both. She should stop the ibuprofen if taking Toradol. She again asked for something stronger but I told her she should get that from her primary providers and I really don't think it's kendrick for her to take those for the pain she is having that she presents with today. Departure - Departure Time of Disposition: 19:44 Disposition: Home, Self-Care 01 Clinical Impression: Foot pain, right Knee pain, left Qualifiers: Chronicity: chronic Qualified Code(s): M25.562 - Pain in left knee - Discharge Information Instructions: Chronic Pain Referrals: Arie Gurrola PA-C [Primary Care Provider] - Forms: ED Department Discharge Care Plan Goals: Stop ibuprofen, start Toradol one every 6 hours through the weekend. Take Tylenol on a regular basis along with the Toradol and continue activity as tolerated. Recheck on Tuesday if not improving satisfactorily.
== END 2017-08-26 19:14 | disposition home or self-care (01) ==
LOC: JP.ED 17:37
DX: M25.562 Pain in left knee (principal); M79.671 Pain in right foot; F17.210 Nicotine dependence, cigarettes, uncomplicated; I10 Essential (primary) hypertension; J45.909 Unspecified asthma, uncomplicated; E66.9 Obesity, unspecified; Z79.899 Other long term (current) drug therapy; Z79.84 Long term (current) use of oral hypoglycemic drugs; Z91.040 Latex allergy status; Z88.5 Allergy status to narcotic agent
CPT/HCPCS: 99283

== ENCOUNTER 2017-08-28 08:02 | Emergency (ER) | payer MEDICARE, BC ==
[2017-08-28 08:29] VITALS: BP 132/112
--- NOTE | 2017-08-28 08:53 | EDM.PDOC ---
ED HPI GENERAL MEDICAL PROBLEM - General Chief Complaint: Skin Complaint Stated Complaint: BOTTOM LIP IS CRACKED/NEEDS OINTMENT Time Seen by Provider: 08/28/17 08:45 Source of Information: Reports: Patient, RN Notes Reviewed History Limitations: Reports: No Limitations - History of Present Illness INITIAL COMMENTS - FREE TEXT/NARRATIVE: 37-year-old female presents emergency department day complaint of Lips her biggest issue is that she does not have any money to forward lip balm so she's asking for a prescription Lip Pain Score (Numeric/FACES): 5 - Related Data Allergies Allergy/AdvReac Type Severity Reaction Status Date / Time latex Allergy Itching Verified 08/28/17 08:29 morphine Allergy Hives Verified 08/28/17 08:29 codeine AdvReac Vomiting Verified 08/28/17 08:29 Home Meds: Home Meds Gabapentin [Neurontin] 800 mg PO TID 06/21/13 [History] Cyclobenzaprine [Flexeril] 10 mg PO TID PRN 10/24/13 [History] Haloperidol [Haldol] 7 mg PO QAM 10/24/13 [History] Propranolol [Inderal] 20 mg PO BID 10/24/13 [History] Verapamil [Calan SR] 120 mg PO QAM 10/24/13 [History] busPIRone [Buspar] 30 mg PO BID 10/24/13 [History] lamoTRIgine [Lamictal] 200 mg PO BID 10/24/13 [History] Albuterol Sulfate [Proair Hfa] 2 inhalation INH Q4H PRN 10/25/13 [History] Fluticasone Propionate [Flovent HFA 110 MCG] 1 puff INH BID 10/25/13 [History] Ibuprofen [Motrin] 800 mg PO Q8H PRN 10/25/13 [History] Venlafaxine HCl [Venlafaxine ER] 300 mg PO DAILY 10/25/13 [History] Verapamil HCl [Verapamil ER] 240 mg PO QPM 10/25/13 [History] medroxyPROGESTERone Acetate [Depo-Provera] 150 mg IM ASDIRECTED 02/05/16 [ History] Benztropine Mesylate 2 tab PO BID 01/04/17 [History] Chromium Amino Acid Chelate [Chromium] 400 mcg PO DAILY 07/01/17 [History] Lidocaine 5% [Lidoderm 5%] 1 patch TOP DAILY 07/01/17 [History] Topiramate 225 mg PO BID 07/01/17 [History] metFORMIN [Glucophage] 1,000 mg PO BIDMEALS 07/01/17 [History] Haloperidol 10 mg PO BEDTIME 07/04/17 [History] Past Medical History Cardiovascular History: Reports: Hypertension Respiratory History: Reports: Asthma, Bronchitis, Recurrent Gastrointestinal History: Reports: Cholelithiasis, Other (See Below) Other Gastrointestinal History: fatty liver Genitourinary History: Reports: Other (See Below) Other Genitourinary History: kidneys 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 Depo- injections every 3 months. Genital herpes Musculoskeletal History: Reports: Back Pain, Chronic, Fracture, Fibromyalgia, Other (See Below) Other Musculoskeletal History: fx r elbow, DJD Neurological History: Reports: Migraines, Seizure Psychiatric History: Reports: ADHD, Addiction, Anxiety, Bipolar, Depression, OCD , PTSD, Schizophrenia Other Psychiatric History: Borderline personality disorder, schizoaffective disorder, self cutting behviors in past. Chronic pain sydrome Endocrine/Metabolic History: Reports: Obesity/BMI 30+, Osteopenia Hematologic History: Reports: Anemia, B12 Deficiency, Iron Deficiency Other Dermatologic History: ectodermal dysplasia - Infectious Disease History Infectious Disease History: Reports: Chicken Pox, MRSA - Past Surgical History HEENT Surgical History: Reports: Oral Surgery, Other (See Below) Other HEENT Surgeries/Procedures: dental implants, some removed GI Surgical History: Reports: Bariatric Procedure, Hernia, Abdominal, Other ( See Below) Other GI Surgeries/Procedures: panniculectomy Neurological Surgical History: Reports: Lumbar Spine Musculoskeletal Surgical History: Reports: Other (See Below) Other Musculoskeletal Surgeries/Procedures:: neuro stimulator implant to help with lower backpain, discectomy August 2015. foot surg. Social & Family History - Family History Family Medical History: Noncontributory Endocrine/Metabolic: Reports: Diabetes, type II - Tobacco Use Smoking Status *Q: Current Every Day Smoker Years of Tobacco use: 16 Packs/Tins Daily: 1.5 Used Tobacco, but Quit: No Month Tobacco Last Used: August Second Hand Smoke Exposure: Yes - Caffeine Use Caffeine Use: Reports: Coffee Other Caffeine Use: 4 cups of coffee - Alcohol Use Days Per Week of Alcohol Use: 1 Number of Drinks Per Day: 6 Total Drinks Per Week: 6 - Recreational Drug Use Recreational Drug Use: Yes Drug Use in Last 12 Months: Yes Recreational Drug Type: Reports: Marijuana/Hashish Recreational Drug Use Frequency: Not Used In Over 6 Months Recreational Drug Last Use: 04/05/15 ED ROS GENERAL - Review of Systems Review Of Systems: See Below Constitutional: Reports: No Symptoms HEENT: Reports: Other (Lips chap) ED EXAM, SKIN/RASH Exam: See Below Text/Narrative:: Examination the mouth dry cracked lips Exam Limited By: No Limitations General Appearance: Alert, WD/WN, No Apparent Distress Course - Vital Signs Last Recorded V/S: Last Vital Signs Temp 97.1 F 08/28/17 08:27 Pulse 82 08/28/17 08:27 Resp 16 08/28/17 08:27 BP 132/112 H 08/28/17 08:27 Pulse Ox 96 08/28/17 08:27 Departure - Departure Time of Disposition: 08:51 Disposition: Home, Self-Care 01 Condition: Critical Clinical Impression: Chapped lips - Discharge Information Referrals: Arie Gurrola PA-C [Primary Care Provider] - Additional Instructions: Apply lip balm 4 times a day as needed, Please followup with your primary care provider in 3-5 days if not better, please call return to the emergency department with worsening of symptoms. - Assessment/Plan Plan: Assessment Acuity = acute Site and laterality = chapped lips Etiology = cold weather Manifestations = none Location of injury = Home Lab values = none Plan Apply lip balm 4 times a day as needed Patient was in agreement with the plan all questions were answered, they were instructed to return to the emergency department or call for worsening symptoms. This note was dictated using [employer] voice recognition software please call with any questions.
== END 2017-08-28 09:16 | disposition home or self-care (01) ==
LOC: JP.ED 08:02
DX: K13.0 Diseases of lips (principal); Z88.5 Allergy status to narcotic agent; Z91.040 Latex allergy status; F17.210 Nicotine dependence, cigarettes, uncomplicated
CPT/HCPCS: 99282; 99283

== ENCOUNTER 2018-04-06 08:07 | Inpatient (IN) | payer MEDICARE, BC ==
[~2018-04-06 08:07] MED LIST: Acetaminophen 500 MG Tab PO ONE; Bupivacaine 0.5%/EPINEPHrine 1:200,000 50 ML MDV ONE; Dexamethasone 4 MG/ML SDV ONE; Dextrose 5%-Lactated Ringers 1,000 ML IV SCH; Gabapentin 400 MG Cap PO ONE; Glycopyrrolate 0.2 MG/ML 5 ML MDV ONE; Neostigmine Methylsulfate 1 MG/ML 5 ML Syringe ONE; Ondansetron 4 MG/2 ML SDV ONE; Propofol 200 MG/20 ML SDV ONE; Rocuronium 50 MG/5 ML Vial ONE; Succinylcholine 200 MG/10 ML MDV ONE
[2018-04-06] MEDS ORDERED: HYDROmorphone/Normal Saline 15 MG/30 ML PCA IV PRN (08:10)
[2018-04-06] MEDS ORDERED: Naloxone 0.4 MG/ML SDV IV PRN (08:12)
[2018-04-06] MEDS ORDERED: Albuterol/Ipratropium 3.0-0.5 MG/3 ML Neb Soln NEB ONE (08:30)
[2018-04-06] MEDS ORDERED: Ketamine 500 MG/5 ML MDV IV SCH (09:00)
[2018-04-06] MEDS ORDERED: Ropivacaine 39 ML, Dexamethasone 8 MG, EPINEPHrine 0.4 MG, Sodium Chloride 0.9% 38.6 ML NERVRT SCH ×4 (09:00)
[2018-04-06] MEDS ORDERED: ceFAZolin 2 GM in Premix Bag 1 BAG IV ONE (09:00)
[2018-04-20] MEDS ORDERED: Gabapentin 400 MG Cap PO ONE ×2 (06:00)
[2018-04-20] MEDS ORDERED: Acetaminophen 500 MG Tab PO ONE (06:00)
[2018-04-20] MEDS ORDERED: Dextrose 5%-Lactated Ringers 1,000 ML IV SCH ×3 (06:45→22:15)
[2018-04-20] MEDS ORDERED: Bupivacaine 0.5%/EPINEPHrine 1:200,000 50 ML MDV ONE (06:49)
[2018-04-20] MEDS ORDERED: Meropenem 500 MG SDV ONE (06:56)
[2018-04-20] MEDS ORDERED: Albuterol/Ipratropium 3.0-0.5 MG/3 ML Neb Soln NEB ONE (07:00)
[2018-04-20] MEDS ORDERED: Succinylcholine 200 MG/10 ML MDV ONE (07:03)
[2018-04-20] MEDS ORDERED: Glycopyrrolate 0.2 MG/ML 5 ML MDV ONE (07:03)
[2018-04-20] MEDS ORDERED: Propofol 200 MG/20 ML SDV ONE (07:03)
[2018-04-20] MEDS ORDERED: Rocuronium 50 MG/5 ML Vial ONE ×2 (07:03→08:05)
[2018-04-20] MEDS ORDERED: Dexamethasone 4 MG/ML SDV ONE (07:03)
[2018-04-20] MEDS ORDERED: fentaNYL 250 MCG/5 ML SDV ONE ×2 (07:03→08:05)
[2018-04-20] MEDS ORDERED: Neostigmine Methylsulfate 1 MG/ML 5 ML Syringe ONE (07:03)
[2018-04-20] MEDS ORDERED: Ondansetron 4 MG/2 ML SDV ONE (07:03)
[2018-04-20] MEDS ORDERED: Ketamine 500 MG/5 ML MDV IV SCH (07:15)
[2018-04-20] MEDS ORDERED: ceFAZolin 2 GM in Premix Bag 1 BAG IV ONE (07:15)
[2018-04-20] MEDS ORDERED: Ropivacaine 39 ML, Dexamethasone 8 MG, EPINEPHrine 0.4 MG, Sodium Chloride 0.9% 38.6 ML NERVRT SCH ×4 (07:15)
[2018-04-20] MEDS ORDERED: Linezolid 200 MG/100 ML Bag IRR ONE (08:12)
[2018-04-20] MEDS ORDERED: hydrOXYzine HCl 100 MG/2 ML SDV IM ONE (09:18)
[2018-04-20] MEDS ORDERED: hydrOXYzine HCl 25 MG Tab PO PRN (10:30)
[2018-04-20] MEDS ORDERED: hydrOXYzine HCl 100 MG/2 ML SDV IM PRN (10:30)
[2018-04-20] MEDS ORDERED: Ondansetron 4 MG/2 ML SDV IVPUSH PRN (10:31)
[2018-04-20] MEDS: HYDROmorphone 2 MG Tab PO PRN ×4 (10:35→23:51)
[2018-04-20] MEDS ORDERED: Cyclobenzaprine 10 MG Tab PO PRN (10:37)
[2018-04-20] MEDS: Lidocaine 5% 700 MG Patch TRDERM SCH (12:43)
[2018-04-20] MEDS: ceFAZolin 2 GM in Premix Bag 1 BAG IV SCH ×2 (13:25→21:03)
[2018-04-20] MEDS: Pantoprazole 40 MG Vial IV SCH (14:27)
[2018-04-20] MEDS: metFORMIN 500 MG Tab PO SCH (16:05)
[2018-04-20] MEDS: Ibuprofen 600 MG Tab PO SCH ×2 (16:06→21:03)
[2018-04-20] MEDS: Topiramate 25 MG Tab PO SCH (20:53)
[2018-04-20] MEDS: Gabapentin 300 MG Cap PO SCH (20:53)
[2018-04-20] MEDS: Benztropine 1 MG Tab PO SCH (20:53)
[2018-04-20] MEDS: Verapamil 120 MG Tab.ER PO SCH (20:54)
[2018-04-20] MEDS: lamoTRIgine 100 MG Tab PO SCH (20:54)
[2018-04-20] MEDS: Haloperidol 5 MG Tab PO SCH (20:55)
[2018-04-20] MEDS: Propranolol 10 MG Tab PO SCH (20:55)
[2018-04-20] MEDS: Venlafaxine 75 MG Cap.ER PO SCH (21:02)
[2018-04-21] MEDS: HYDROmorphone 2 MG Tab PO PRN ×5 (03:53→22:11)
[2018-04-21] MEDS: Ibuprofen 600 MG Tab PO SCH ×4 (05:52→22:11)
[2018-04-21] MEDS: ceFAZolin 2 GM in Premix Bag 1 BAG IV SCH (05:52)
[2018-04-21] MEDS: Gabapentin 300 MG Cap PO SCH ×2 (08:33→22:10)
[2018-04-21] MEDS: Lidocaine 5% 700 MG Patch TRDERM SCH (08:33)
[2018-04-21] MEDS: lamoTRIgine 100 MG Tab PO SCH ×2 (08:33→22:10)
[2018-04-21] MEDS: Topiramate 25 MG Tab PO SCH ×2 (08:34→22:10)
[2018-04-21] MEDS: Propranolol 10 MG Tab PO SCH ×2 (08:34→22:10)
[2018-04-21] MEDS: Benztropine 1 MG Tab PO SCH ×2 (08:34→22:09)
[2018-04-21] MEDS: Bisacodyl 5 MG Tab PO SCH ×2 (08:35→22:09)
[2018-04-21] MEDS: metFORMIN 500 MG Tab PO SCH ×2 (08:35→17:35)
[2018-04-21] MEDS ORDERED: Verapamil 120 MG Tab.ER PO SCH (09:00)
[2018-04-21] MEDS ORDERED: HALOPERIDOL PO SCH ×2 (09:00)
--- NOTE | 2018-04-21 09:50 | PN ---
DATE OF SERVICE: 04/21/2018 SUBJECTIVE: Nicole is postop day #1. She states that her pain is not quite controlled on 4 mg of Dilaudid. She has been up and ambulating and using her incentive spirometer. Oral intake was 1080. Rodriguez catheter, before it was removed, she had 4320 mL of a clear elizabeth urine. REVIEW OF SYSTEMS: Remainder of review of systems negative for any pertinent positives and negatives. OBJECTIVE: GENERAL: Nicole Florian is a 37-year-old female. VITAL SIGNS: TPR is 97.5, 98, 18, and blood pressure 111/68. HEENT: Negative. NECK: Supple. HEART: Regular rate and rhythm. LUNGS: Clear. ABDOMEN: Dressings dry and intact. Abdominal binder is on. EXTREMITIES: Without peripheral edema. SCDs are on. ASSESSMENT: Exploratory laparotomy with repair of recurrent incisional hernia, partial removal of previously placed intraperitoneal mesh and placement of Vicryl mesh, repair of focal deserosalization of the small bowel for recurrent incarcerated incisional hernia, retracted intraperitoneal mesh and focal deserosalization of the small bowel. Date of surgery 04/20/2018. PLAN: 1. Dilaudid 2 mg to 6 mg q.4 hours p.o. p.r.n. pain. 2. Dulcolax tabs 5 mg p.o. b.i.d. 3. Senna Plus 2 tablets p.o. at bedtime. 4. Good pulmonary toilet. 5. We will evaluate p.r.n. or in a.m. Idalia Daugherty PA-C /[id number]
[2018-04-21] MEDS: Pantoprazole 40 MG Vial IV SCH (13:13)
[2018-04-21] MEDS ORDERED: Ondansetron 4 MG Tab.DIS PO PRN (13:23)
[2018-04-21] MEDS: Verapamil 120 MG Tab.ER PO SCH (22:05)
[2018-04-21] MEDS: Venlafaxine 75 MG Cap.ER PO SCH (22:09)
[2018-04-21] MEDS: Haloperidol 5 MG Tab PO SCH (22:10)
[2018-04-22] MEDS: HYDROmorphone 2 MG Tab PO PRN ×2 (03:34→07:21)
[2018-04-22] MEDS: Ibuprofen 600 MG Tab PO SCH (05:53)
[2018-04-22 07:20] VITALS: BP 95/49
[2018-04-22] MEDS: metFORMIN 500 MG Tab PO SCH (07:22)
[2018-04-22] MEDS ORDERED: Magnesium Hydroxide 400 MG/5 ML Susp 30 ML Cup PO PRN (07:31)
--- NOTE | 2018-04-22 16:03 | DISCH ---
FINAL DIAGNOSES: 1. Recurrent incarcerated incisional hernia. 2. Retracted intraperitoneal mesh. 3. Focal deserosalization of small bowel. ADDITIONAL DIAGNOSES: 1. Bariatric surgery status. 2. History of hypertension. 3. Schizoaffective disorder. 4. History of asthma. OPERATIVE PROCEDURES: Done on 04/20: 1. Exploratory laparotomy with. a. Repair of recurrent incarcerated incisional hernia. b. Partial removal of previously placed intraperitoneal mesh. c. Placement of Vicryl mesh to limit postoperative recurrent adhesion formation. d. Repair of focal deserosalization of small bowel. HOSPITAL COURSE: This is a 37-year-old presenting with a recurrence of upper abdominal incisional hernia. On the day of admission, the patient underwent the above noted findings. The mesh underlying the area of recurrence was actually intact in terms of the fixation in the surrounding musculature, and a wedge of this retracted, and the mesh was then taken down through the middle, and the mesh then reconnected which should provide a stable abdominal wall at this point. This then allowed good primary reapproximation of the fascia overlying the mesh. Postoperatively, the patient has had no major problems. She will be discharged home on Dilaudid 6 mg p.o. q.4 hours p.r.n. pain, #40, 6 mg doses and milk of magnesia p.r.n. should be continued per preop medications. Followup will be with Idalia Daugherty PA-C, at [facility] on Tuesday on 05/01.
--- NOTE | 2018-05-01 08:24 | OR ---
DATE OF PROCEDURE: 04/20/2018 PREOPERATIVE DIAGNOSIS: Recurrent incarcerated incisional hernia. POSTOPERATIVE DIAGNOSES: 1. Recurrent incarcerated incisional hernia. 2. Retracted intraperitoneal mesh. 3. Small bowel affixed to mesh resulting in focal deserosalization of the small bowel upon its dissection away from the mesh. OPERATIVE PROCEDURES: Exploratory laparotomy with: 1. Repair of recurrent incisional hernia (01042). 2. Partial removal of previously placed intraperitoneal mesh (03238). 3. Placement of Vicryl mesh to limit recurrent adhesion formation between the pelvic and abdominal wall and underlying mesh with the adjacent viscera (54471). 4. Repair of focal deserosalization of small bowel (13258). ANESTHESIA: General. ASSISTANTS: 1. Idalia Daugherty PA-C. 2. LIANNA Hillman. INDICATION FOR PROCEDURE: The patient presents with a recurrence of an incisional hernia located in the upper abdomen. After preop evaluation and discussion, she wished to proceed with repair. Potential risks including bleeding, infection, possible infection involving the mesh, requiring its removal, possible injury to the underlying bowel and/or necessity for bowel resection were reviewed, and the patient wished to proceed. DETAILS OF PROCEDURE: The patient was taken to the operating room and after general endotracheal anesthesia was induced, a Rodriguez catheter was inserted and the abdomen prepped and draped. An elliptical incision was then made in the vertical midline, removing a portion of skin, which at that point was somewhat deformed. This was then carried down to this level of the underlying mesh. The mesh itself at this point was intact but appeared to probably have slid down somewhat towards the midline, resulting in recurrence of the hernia to some extent. At that point, the dissection under the mesh was completed from the xiphoid to roughly the level of the umbilicus. Some of this mesh was turned in on its edges, and a portion of the mesh centrally was then excised. There was an area of small bowel adherence to the mesh. This was dissected off with a focal area of deserosalization of the small bowel identified, but no overt enterotomy. This was closed transversely with a ANDRY angel load. The instruments used for the closure of the bowel were discarded, and new gloves were obtained at that point. With the central portion of the mesh being excised in the midline, it was felt this would likely result in adequate re-repair of the hernia. A Vicryl mesh was then placed from the area underneath the bladder along the pelvic sidewalls, and up against the abdominal wall, including the area of mesh to limit recurrent adhesion formation, and at that point, the edges of the mesh were then reapproximated with a #1 Prolene stitch. This then allowed approximation of the fascia over the mesh repair with a running #2 Vicryl stitch. The subcutaneous tissue was then closed with 2 layers of #3-0 Vicryl stitch and the skin with adin. Dressing was applied. The patient was taken to the recovery room in satisfactory condition. Physician market research assistant, Idalia Daugherty, played an essential role in assisting in this case, helping to position the patient, retract structures as needed, as well as suturing and stapling as indicated. Her presence improved patient safety and decreased the operative time. Faizan Richardson MD /[id number]
== END 2018-04-22 09:35 | disposition home or self-care (01) | DRG 331 ==
LOC: JP.SDS 08:07 → JP.MS 04-20 05:12 → EDSTATUS 04-20 09:00 → JP.2SS 04-20 09:05
PROVIDERS: ADMIT Surgery; ATTEND Surgery
PROC: 0WUF0JZ Supplement Abdominal Wall with Synthetic Substitute, Open Approach (ICD-10-PCS; principal; 2018-04-20)
PROC: 0DQ80ZZ Repair Small Intestine, Open Approach (ICD-10-PCS; 2018-04-20)
PROC: 0DPW0JZ Removal of Synthetic Substitute from Peritoneum, Open Approach (ICD-10-PCS; 2018-04-20)
PROC: 3E0M05Z Introduction of Adhesion Barrier into Peritoneal Cavity, Open Approach (ICD-10-PCS; 2018-04-20)
DX: K43.0 Incisional hernia with obstruction, without gangrene (principal); I10 Essential (primary) hypertension; J45.20 Mild intermittent asthma, uncomplicated; Z87.891 Personal history of nicotine dependence; F25.9 Schizoaffective disorder, unspecified; F43.10 Post-traumatic stress disorder, unspecified; F42.9 Obsessive-compulsive disorder, unspecified; F41.9 Anxiety disorder, unspecified; F32.9 Major depressive disorder, single episode, unspecified; F10.21 Alcohol dependence, in remission; Z98.84 Bariatric surgery status; M51.9 Unspecified thoracic, thoracolumbar and lumbosacral intervertebral disc disorder; Z91.040 Latex allergy status; Z88.5 Allergy status to narcotic agent; T85.9XXA Unspecified complication of internal prosthetic device, implant and graft, initial encounter; Y82.8 Other medical devices associated with adverse incidents; S36.4 Injury of small intestine
CPT/HCPCS: 81025; 88300; 94640; 94762; A9270-GY; C1781; C9113; J0171; J0330; J0690; J1100; J1170; J2020; J2185; J2405; J2704; J2710; J2795; J3010; J3410; J3490; J7030; J7042; J7050; J7620

== ENCOUNTER 2018-05-09 18:43 | Emergency (ER) | payer MEDICARE, BC ==
[2018-05-09 19:17] VITALS: BP 159/111
--- NOTE | 2018-05-09 20:10 | EDM.PDOC ---
ED HPI GENERAL MEDICAL PROBLEM - General Chief Complaint: Skin Complaint Stated Complaint: HURTS AROUND THE SURGERY SITE Time Seen by Provider: 05/09/18 20:09 Source of Information: Reports: Patient, Family, Old Records, RN Notes Reviewed History Limitations: Reports: No Limitations - History of Present Illness INITIAL COMMENTS - FREE TEXT/NARRATIVE: 37-year-old female presents to the emergency department day complaint of abdominal wound drainage proximally 2 weeks ago she underwent abdominal hernia repair at the inferior aspect of the wound she has a slight amount of drainage she has complaints of tenderness in the abdomen and she is currently out of her hydrocodone, no other symptoms Abdomen Pain Score (Numeric/FACES): 9 - Related Data Allergies Allergy/AdvReac Type Severity Reaction Status Date / Time latex Allergy Itching Verified 05/09/18 19:11 morphine Allergy Hives Verified 05/09/18 19:11 codeine AdvReac Vomiting Verified 05/09/18 19:11 Home Meds: Home Meds Gabapentin [Neurontin] 800 mg PO TID 06/21/13 [History] Cyclobenzaprine [Flexeril] 10 mg PO TID PRN 10/24/13 [History] Haloperidol [Haldol] 7 mg PO QAM 10/24/13 [History] Propranolol [Inderal] 20 mg PO BID 10/24/13 [History] Verapamil [Calan SR] 120 mg PO QAM 10/24/13 [History] busPIRone [Buspar] 30 mg PO BID 10/24/13 [History] lamoTRIgine [Lamictal] 200 mg PO BID 10/24/13 [History] Albuterol Sulfate [Proair Hfa] 2 inhalation INH Q4H PRN 10/25/13 [History] Fluticasone Propionate [Flovent HFA 110 MCG] 1 puff INH BID 10/25/13 [History] Ibuprofen [Motrin] 800 mg PO Q8H PRN 10/25/13 [History] Venlafaxine HCl [Venlafaxine ER] 225 mg PO DAILY 10/25/13 [History] Verapamil HCl [Verapamil ER] 240 mg PO QPM 10/25/13 [History] medroxyPROGESTERone Acetate [Depo-Provera] 150 mg IM .[id number] 02/05/16 [History ] Benztropine Mesylate 2 mg PO BID 01/04/17 [History] Chromium Amino Acid Chelate [Chromium] 400 mcg PO DAILY 07/01/17 [History] Topiramate 50 mg PO BID 07/01/17 [History] metFORMIN [Glucophage] 1,000 mg PO BIDMEALS 07/01/17 [History] Haloperidol 10 mg PO BEDTIME 07/04/17 [History] ALPRAZolam [Xanax] 1 mg PO DAILY PRN 04/04/18 [History] Ergocalciferol (Vitamin D2) [Vitamin D2] 50,000 unit PO MOWEFR 04/04/18 [History ] Iron,Carbonyl/Ascorbic Acid [Iron 100-Vitamin C Tablet] 65 - 125 mg PO DAILY [History] Mometasone Furoate [Asmanex] 1 puff INH BID 04/04/18 [History] Multivitamin [Multiple Vitamins] 1 tab PO DAILY 04/04/18 [History] Naltrexone HCl [Revia] 25 mg PO BID 04/04/18 [History] Triamcinolone Acetonide [Triamcinolone Acetonide 0.1% Oint] 1 applic TOP BID PRN 04/04/18 [History] Zolpidem Tartrate [Ambien] 5 mg PO BEDTIME PRN 04/04/18 [History] Iron,Carbonyl/Ascorbic Acid [Vitron-C Tablet] 1 tab PO DAILY 04/17/18 [History] Past Medical History HEENT History: Reports: Other (See Below) Other HEENT History: wears glasses Cardiovascular History: Reports: Hypertension Respiratory History: Reports: Asthma, Bronchitis, Recurrent Gastrointestinal History: Reports: Cholelithiasis, Other (See Below) Other Gastrointestinal History: fatty liver Genitourinary History: Reports: Other (See Below) Other Genitourinary History: kidneys, overactive bladder 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 Depo- injections every 3 months. Genital herpes Musculoskeletal History: Reports: Back Pain, Chronic, Fracture, Fibromyalgia, Other (See Below) Other Musculoskeletal History: fx r elbow, DJD Neurological History: Reports: Migraines, Seizure Psychiatric History: Reports: ADHD, Addiction, Anxiety, Bipolar, Depression, OCD , PTSD, Schizophrenia Other Psychiatric History: Borderline personality disorder, schizoaffective disorder, self cutting behviors in past. 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 bariatric surgery 2002 Female Surgical History: Reports: Section Endocrine Surgical History: Reports: None Neurological Surgical History: Reports: Lumbar Spine Musculoskeletal Surgical History: Reports: Other (See Below) Other Musculoskeletal Surgeries/Procedures:: neuro stimulator implant to help with lower backpain, discectomy August 2015. foot surg. Dermatological Surgical History: Reports: None Social & Family History - Family History Family Medical History: Noncontributory Endocrine/Metabolic: Reports: Diabetes, type II - Tobacco Use Smoking Status *Q: Current Every Day Smoker Years of Tobacco use: 16 Packs/Tins Daily: 1 Used Tobacco, but Quit: No Second Hand Smoke Exposure: Yes - Caffeine Use Caffeine Use: Reports: Coffee Other Caffeine Use: 4 cups of coffee - Recreational Drug Use Recreational Drug Use: No ED ROS GENERAL - Review of Systems Review Of Systems: See Below Constitutional: Reports: No Symptoms HEENT: Reports: No Symptoms Respiratory: Reports: No Symptoms Cardiovascular: Reports: No Symptoms GI/Abdominal: Reports: Abdominal Pain, Flatus. Denies: Constipation, Diarrhea, Nausea, Vomiting : Reports: No Symptoms Musculoskeletal: Reports: No Symptoms Skin: Reports: No Symptoms Neurological: Reports: No Symptoms ED EXAM, SKIN/RASH Exam: See Below Exam Limited By: No Limitations General Appearance: Alert, WD/WN, No Apparent Distress Respiratory/Chest: No Respiratory Distress, Lungs Clear, Normal Breath Sounds, No Accessory Muscle Use Cardiovascular: Regular Rate, Rhythm, No Murmur GI/Abdominal: Soft, Tender (Tender over surgical incision scant amount of drainage is noted at the inferior aspect of the surgical wound minimal dehiscence approximately 5 mm) Course - Vital Signs Last Recorded V/S: Last Vital Signs Temp 97.9 F 05/09/18 19:06 Pulse 114 H 05/09/18 19:06 Resp 16 05/09/18 19:06 BP 159/111 H 05/09/18 19:06 Pulse Ox 97 05/09/18 19:06 - Orders/Labs/Meds Orders: Active Orders 24 hr Category Date Time Status Abdomen 1V Upright [CR] Stat Exams 05/09/18 20:17 Taken Labs: Laboratory Tests 05/09/18 05/09/18 Range/Units 20:28 20:28 WBC 9.8 (4.5-11.0) K/uL RBC 3.90 (3.30-5.50) M/uL Hgb 12.5 (12.0-15.0) g/dL Hct 37.0 (36.0-48.0) % MCV 95 (80-98) fL MCH 32 H (27-31) pg MCHC 34 (32-36) % Plt Count 344 (150-400) K/uL Neut % (Auto) 63 (36-66) % Lymph % (Auto) 22 L (24-44) % Angelina % (Auto) 10 H (2-6) % Eos % (Auto) 4 (2-4) % Baso % (Auto) 0 (0-1) % Sodium 137 L (140-148) mmol/L Potassium 3.8 (3.6-5.2) mmol/L Chloride 102 (100-108) mmol/L Carbon Dioxide 24 (21-32) mmol/L Anion Gap 14.8 H (5.0-14.0) mmol/L BUN 11 (7-18) mg/dL Creatinine 1.0 (0.6-1.0) mg/dL Est Cr Clr Drug Dosing 72.11 mL/min Estimated GFR (MDRD) > 60 (>60) Glucose 84 (74-106) mg/dL Calcium 9.1 (8.5-10.1) mg/dL Total Bilirubin 0.3 (0.2-1.0) mg/dL AST 8 L (15-37) U/L ALT 20 (12-78) U/L Alkaline Phosphatase 160 H (46-116) U/L Total Protein 6.4 (6.4-8.2) g/dL Albumin 3.3 L (3.4-5.0) g/dL Globulin 3.1 (2.3-3.5) g/dL Albumin/Globulin Ratio 1.1 L (1.2-2.2) Meds: Medications Discontinued Medications Generic Name Dose Route Start Last Admin Trade Name Eloise PRN Reason Stop Dose Admin Fentanyl 50 mcg 05/09/18 20:18 05/09/18 20:42 Sublimaze IM 05/09/18 20:19 50 mcg ONETIME ONE Administration Departure - Departure Time of Disposition: 21:26 Disposition: Home, Self-Care 01 Condition: Good Clinical Impression: Abdominal pain, periumbilical - Discharge Information Referrals: Tomy Woods MD [Primary Care Provider] - Forms: ED Department Discharge Additional Instructions: Use hydrocodone as needed for pain control please follow-up with Dr. Richardson on of this week, call to the clinic tomorrow for an appointment time - My Orders Last 24 Hours: My Active Orders 05/09/18 20:17 Abdomen 1V Upright [CR] Stat - Assessment/Plan Last 24 Hours: My Active Orders 05/09/18 20:17 Abdomen 1V Upright [CR] Stat Plan: Assessment Acuity = acute Site and laterality = abdominal pain midline status post hernia repair Etiology = unclear etiology Manifestations = none Location of injury = Home Lab values = CBC, CMP unremarkable plain film the abdomen does show large amount stool and gas official read radiology is pending Plan Called discussed case with Dr. Richardson general surgery recommended hydrocodone for pain control follow-up in clinic on This note was dictated using [employer] voice recognition software please call with any questions on syntax or grammar.
[2018-05-09] MEDS ORDERED: fentaNYL 100 MCG/2 ML SDV IM ONE (20:18)
--- NOTE | 2018-05-10 08:43 | CR ---
Abdomen 1V Upright CLINICAL HISTORY: Abdominal pain FINDINGS: There is moderate retained stool throughout the colon. There is some gaseous distention of the transverse colon. Small intestinal gas pattern is nonacute. No free air is seen IMPRESSION: Moderate retained stool Gaseous distention of the colon in a nonspecific pattern
== END 2018-05-09 21:56 | disposition home or self-care (01) ==
LOC: JP.ED 18:43
DX: R10.33 Periumbilical pain (principal); F17.210 Nicotine dependence, cigarettes, uncomplicated; I10 Essential (primary) hypertension; F41.9 Anxiety disorder, unspecified; F31.9 Bipolar disorder, unspecified; Z79.899 Other long term (current) drug therapy; Z91.040 Latex allergy status; Z88.5 Allergy status to narcotic agent
CPT/HCPCS: 36415; 74018; 80053; 85025; 96372; 99284; J3010

== ENCOUNTER 2018-06-28 10:52 | Emergency (ER) | payer MEDICARE, BC ==
[2018-06-28 11:14] VITALS: BP 142/92
[2018-06-28] MEDS: Ketorolac 60 MG/2 ML SDV IM ONE (11:42)
--- NOTE | 2018-06-28 11:55 | EDM.PDOC ---
ED HPI GENERAL MEDICAL PROBLEM - General Chief Complaint: Back Pain or Injury Stated Complaint: MIGRAINE, BACK PAIN Time Seen by Provider: 06/28/18 11:20 Source of Information: Reports: Patient History Limitations: Reports: No Limitations - History of Present Illness INITIAL COMMENTS - FREE TEXT/NARRATIVE: 38-year-old female in with low back pain. Last night she was getting up from the couch and felt a pull in her lower back, today it's sharper and hurts to straighten her back and walk. No numbness in the lower extremities. She has chronic fibromyalgia and chronic back pain but this is worse than it usually is. No fevers or chills, no urinary symptoms. She also mentions that she ran out of her migraine medicine and wants a refill on that but she "doesn't want Imitrex". Onset: Sudden Duration: Hour(s): (Pain has been present for about 12 hours) Lower Back Pain Score (Numeric/FACES): 10 - Related Data Allergies Allergy/AdvReac Type Severity Reaction Status Date / Time latex Allergy Itching Verified 06/28/18 11:04 morphine Allergy Hives Verified 06/28/18 11:04 codeine AdvReac Vomiting Verified 06/28/18 11:04 Home Meds: Home Meds Gabapentin [Neurontin] 800 mg PO TID 06/21/13 [History] Cyclobenzaprine [Flexeril] 10 mg PO TID PRN 10/24/13 [History] Haloperidol [Haldol] 7 mg PO QAM 10/24/13 [History] Propranolol [Inderal] 20 mg PO BID 10/24/13 [History] Verapamil [Calan SR] 120 mg PO QAM 10/24/13 [History] busPIRone [Buspar] 30 mg PO BID 10/24/13 [History] lamoTRIgine [Lamictal] 200 mg PO BID 10/24/13 [History] Albuterol Sulfate [Proair Hfa] 2 inhalation INH Q4H PRN 10/25/13 [History] Fluticasone Propionate [Flovent HFA 110 MCG] 1 puff INH BID 10/25/13 [History] Ibuprofen [Motrin] 800 mg PO Q8H PRN 10/25/13 [History] Venlafaxine HCl [Venlafaxine ER] 225 mg PO DAILY 10/25/13 [History] Verapamil HCl [Verapamil ER] 240 mg PO QPM 10/25/13 [History] medroxyPROGESTERone Acetate [Depo-Provera] 150 mg IM .[id number] 02/05/16 [History ] Benztropine Mesylate 2 mg PO BID 01/04/17 [History] Chromium Amino Acid Chelate [Chromium] 400 mcg PO DAILY 07/01/17 [History] Topiramate 50 mg PO BID 07/01/17 [History] metFORMIN [Glucophage] 1,000 mg PO BIDMEALS 07/01/17 [History] Haloperidol 10 mg PO BEDTIME 07/04/17 [History] ALPRAZolam [Xanax] 1 mg PO DAILY PRN 04/04/18 [History] Ergocalciferol (Vitamin D2) [Vitamin D2] 50,000 unit PO MOWEFR 04/04/18 [History ] Iron,Carbonyl/Ascorbic Acid [Iron 100-Vitamin C Tablet] 65 - 125 mg PO DAILY [History] Mometasone Furoate [Asmanex] 1 puff INH BID 04/04/18 [History] Multivitamin [Multiple Vitamins] 1 tab PO DAILY 04/04/18 [History] Naltrexone HCl [Revia] 25 mg PO BID 04/04/18 [History] Triamcinolone Acetonide [Triamcinolone Acetonide 0.1% Oint] 1 applic TOP BID PRN 04/04/18 [History] Zolpidem Tartrate [Ambien] 5 mg PO BEDTIME PRN 04/04/18 [History] Iron,Carbonyl/Ascorbic Acid [Vitron-C Tablet] 1 tab PO DAILY 04/17/18 [History] Past Medical History HEENT History: Reports: Other (See Below) Other HEENT History: wears glasses Cardiovascular History: Reports: Hypertension Respiratory History: Reports: Asthma, Bronchitis, Recurrent Gastrointestinal History: Reports: Cholelithiasis, Other (See Below) Other Gastrointestinal History: fatty liver Genitourinary History: Reports: Other (See Below) Other Genitourinary History: kidneys, overactive bladder 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 Depo- injections every 3 months. Genital herpes Musculoskeletal History: Reports: Back Pain, Chronic, Fracture, Fibromyalgia, Other (See Below) Other Musculoskeletal History: fx r elbow, DJD Neurological History: Reports: Migraines, Seizure Psychiatric History: Reports: ADHD, Addiction, Anxiety, Bipolar, Depression, OCD , PTSD, Schizophrenia Other Psychiatric History: Borderline personality disorder, schizoaffective disorder, self cutting behviors in past. 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 bariatric surgery 2002 Female Surgical History: Reports: Section Endocrine Surgical History: Reports: None Neurological Surgical History: Reports: Lumbar Spine Musculoskeletal Surgical History: Reports: Other (See Below) Other Musculoskeletal Surgeries/Procedures:: neuro stimulator implant to help with lower backpain, discectomy August 2015. foot surg. Dermatological Surgical History: Reports: None Social & Family History - Family History Family Medical History: Noncontributory Endocrine/Metabolic: Reports: Diabetes, type II - Tobacco Use Smoking Status *Q: Current Every Day Smoker Years of Tobacco use: 16 Packs/Tins Daily: 1 Used Tobacco, but Quit: No Second Hand Smoke Exposure: Yes - Caffeine Use Caffeine Use: Reports: Coffee Other Caffeine Use: 4 cups of coffee - Recreational Drug Use Recreational Drug Use: No ED ROS GENERAL - Review of Systems Review Of Systems: See Below Constitutional: Denies: Fever, Chills Respiratory: Denies: Shortness of Breath GI/Abdominal: Denies: Abdominal Pain : Denies: Dysuria Musculoskeletal: Reports: Shoulder Pain, Back Pain, Muscle Pain Neurological: Reports: Headache (Chronic migraine headaches, none currently) ED EXAM,LOWER BACK PAIN/INJURY - Physical Exam Exam: See Below Exam Limited By: No Limitations General Appearance: Alert, No Apparent Distress, Other (Patient does not look particularly uncomfortable) Neck: Supple, Non-Tender Respiratory/Chest: No Respiratory Distress Back Exam: Paraspinal Tenderness (Somewhat difficult to examine as any palpation along the paraspinous area thoracic or lumbar causes her to wince with discomfort), Other (No significant increased pain with rotation against resistance right or left) Neurological: No Motor/Sensory Deficits, Oriented x 3. No: Straight Leg Raise ( L), Straight Leg Raise (R) (Straight leg raising is negative however causes some increased pulling and discomfort in her lower back) Course - Vital Signs Last Recorded V/S: Last Vital Signs Temp 207.1 F H 06/28/18 11:18 Pulse 128 H 06/28/18 11:18 Resp 16 06/28/18 11:18 BP 142/92 H 06/28/18 11:18 Pulse Ox 94 L 06/28/18 11:18 - Orders/Labs/Meds Meds: Medications Discontinued Medications Generic Name Dose Route Start Last Admin Trade Name Freq PRN Reason Stop Dose Admin Ketorolac Tromethamine 60 mg 06/28/18 11:37 06/28/18 11:42 Toradol IM 06/28/18 11:38 60 mg ONETIME ONE Administration - Re-Assessments/Exams Free Text/Narrative Re-Assessment/Exam: 06/28/18 11:53 Patient was given 60 mg of IM Toradol, and 10 additional doses to take one every 6-8 hours over the next several days. A follow-up appointment was scheduled at 9:25 AM tomorrow morning for her primary provider to discuss migraine medication and to recheck her back. Departure - Departure Time of Disposition: 12:12 Disposition: Home, Self-Care 01 Condition: Good Clinical Impression: Low back strain Qualifiers: Encounter type: initial encounter Qualified Code(s): S39.012A - Strain of muscle, fascia and tendon of lower back, initial encounter - Discharge Information Instructions: Back Pain, Adult, [id number] Referrals: PCP,None [Primary Care Provider] - Forms: ED Department Discharge Additional Instructions: [facility] [place] APPT AT 9:25 AM ON 06/29/18 Care Plan Goals: Take your medication as prescribed, one pill every 6-8 hours for back pain and recheck tomorrow morning at 9:[address] Woods
== END 2018-06-28 12:12 | disposition home or self-care (01) ==
LOC: JP.ED 10:52
DX: S39.012A Strain of muscle, fascia and tendon of lower back, initial encounter (principal); I10 Essential (primary) hypertension; F17.210 Nicotine dependence, cigarettes, uncomplicated; Z79.84 Long term (current) use of oral hypoglycemic drugs; Z88.5 Allergy status to narcotic agent; Z91.040 Latex allergy status; X50.9XXA Other and unspecified overexertion or strenuous movements or postures, initial encounter
CPT/HCPCS: 96372; 99283; J1885

== ENCOUNTER 2018-07-06 08:31 | Emergency (ER) | payer MEDICARE, BC ==
[2018-07-06 08:56] VITALS: BP 157/109
[2018-07-06] MEDS ORDERED: Acetaminophen/oxyCODONE 325-5 MG Tab PO ONE (09:15)
--- NOTE | 2018-07-06 09:39 | EDM.PDOC ---
ED HPI GENERAL MEDICAL PROBLEM - General Chief Complaint: Back Pain or Injury Stated Complaint: BACK PAIN Time Seen by Provider: 07/06/18 08:50 Source of Information: Reports: Patient History Limitations: Reports: No Limitations - History of Present Illness INITIAL COMMENTS - FREE TEXT/NARRATIVE: pt arrived with a history of lower back pain. She did have a disc removed about 1 year ago that was very helpful. She is getting the pain when she gets up from a couch. She is having difficulty resting because of the pain. Onset: Gradual, Other ( Last several days. ) Duration: Hour(s): Location: Reports: Back Associated Symptoms: Reports: No Other Symptoms Lower Back Pain Score (Numeric/FACES): 8 - Related Data Allergies Allergy/AdvReac Type Severity Reaction Status Date / Time latex Allergy Itching Verified 07/06/18 08:44 morphine Allergy Hives Verified 07/06/18 08:44 codeine AdvReac Vomiting Verified 07/06/18 08:44 Home Meds: Home Meds Gabapentin [Neurontin] 800 mg PO TID 06/21/13 [History] Cyclobenzaprine [Flexeril] 10 mg PO TID PRN 10/24/13 [History] Haloperidol [Haldol] 7 mg PO QAM 10/24/13 [History] Propranolol [Inderal] 20 mg PO BID 10/24/13 [History] Verapamil [Calan SR] 120 mg PO QAM 10/24/13 [History] busPIRone [Buspar] 30 mg PO BID 10/24/13 [History] lamoTRIgine [Lamictal] 200 mg PO BID 10/24/13 [History] Albuterol Sulfate [Proair Hfa] 2 inhalation INH Q4H PRN 10/25/13 [History] Fluticasone Propionate [Flovent HFA 110 MCG] 1 puff INH BID 10/25/13 [History] Ibuprofen [Motrin] 800 mg PO Q8H PRN 10/25/13 [History] Venlafaxine HCl [Venlafaxine ER] 225 mg PO DAILY 10/25/13 [History] Verapamil HCl [Verapamil ER] 240 mg PO QPM 10/25/13 [History] medroxyPROGESTERone Acetate [Depo-Provera] 150 mg IM .[id number] 02/05/16 [History ] Benztropine Mesylate 2 mg PO BID 01/04/17 [History] Chromium Amino Acid Chelate [Chromium] 400 mcg PO DAILY 07/01/17 [History] Topiramate 50 mg PO BID 07/01/17 [History] metFORMIN [Glucophage] 1,000 mg PO BIDMEALS 07/01/17 [History] Haloperidol 10 mg PO BEDTIME 07/04/17 [History] ALPRAZolam [Xanax] 1 mg PO DAILY PRN 04/04/18 [History] Ergocalciferol (Vitamin D2) [Vitamin D2] 50,000 unit PO MOWEFR 04/04/18 [History ] Iron,Carbonyl/Ascorbic Acid [Iron 100-Vitamin C Tablet] 65 - 125 mg PO DAILY [History] Mometasone Furoate [Asmanex] 1 puff INH BID 04/04/18 [History] Multivitamin [Multiple Vitamins] 1 tab PO DAILY 04/04/18 [History] Naltrexone HCl [Revia] 25 mg PO BID 04/04/18 [History] Triamcinolone Acetonide [Triamcinolone Acetonide 0.1% Oint] 1 applic TOP BID PRN 04/04/18 [History] Zolpidem Tartrate [Ambien] 5 mg PO BEDTIME PRN 04/04/18 [History] Iron,Carbonyl/Ascorbic Acid [Vitron-C Tablet] 1 tab PO DAILY 04/17/18 [History] Past Medical History HEENT History: Reports: Other (See Below) Other HEENT History: wears glasses Cardiovascular History: Reports: Hypertension Respiratory History: Reports: Asthma, Bronchitis, Recurrent Gastrointestinal History: Reports: Cholelithiasis, Other (See Below) Other Gastrointestinal History: fatty liver Genitourinary History: Reports: Other (See Below) Other Genitourinary History: kidneys, overactive bladder METEOROLOGIST IN CHARGE History: Reports: , Other (See Below) Other METEOROLOGIST IN CHARGE 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 Depo- injections every 3 months. Genital herpes Musculoskeletal History: Reports: Back Pain, Chronic, Fracture, Fibromyalgia, Other (See Below) Other Musculoskeletal History: fx r elbow, DJD Neurological History: Reports: Migraines, Seizure Psychiatric History: Reports: ADHD, Addiction, Anxiety, Bipolar, Depression, OCD , PTSD, Schizophrenia Other Psychiatric History: Borderline personality disorder, schizoaffective disorder, self cutting behviors in past. 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 bariatric surgery 2002 Female Surgical History: Reports: Section Endocrine Surgical History: Reports: None Neurological Surgical History: Reports: Lumbar Spine Musculoskeletal Surgical History: Reports: Other (See Below) Other Musculoskeletal Surgeries/Procedures:: neuro stimulator implant to help with lower backpain, discectomy August 2015. foot surg. Dermatological Surgical History: Reports: None Social & Family History - Family History Family Medical History: Noncontributory Endocrine/Metabolic: Reports: Diabetes, type II - Tobacco Use Smoking Status *Q: Current Every Day Smoker Years of Tobacco use: 16 Packs/Tins Daily: 1 Used Tobacco, but Quit: No Second Hand Smoke Exposure: No - Caffeine Use Caffeine Use: Reports: Coffee Other Caffeine Use: 4 cups of coffee - Recreational Drug Use Recreational Drug Use: No ED ROS GENERAL - Review of Systems Review Of Systems: See Below Constitutional: Reports: No Symptoms HEENT: Reports: No Symptoms Respiratory: Reports: No Symptoms Cardiovascular: Reports: No Symptoms Endocrine: Reports: No Symptoms GI/Abdominal: Reports: No Symptoms : Reports: No Symptoms Musculoskeletal: Reports: Other ( severe lower back pain. ) Neurological: Reports: No Symptoms Psychiatric: Reports: No Symptoms ED EXAM,LOWER BACK PAIN/INJURY - Physical Exam Exam: See Below Text/Narrative:: Pt arrived with pain accross her lower lumbar area. She has no radicular pain at this time. She is not able to rest. General Appearance: Alert, Anxious, Moderate Distress Ears: Normal TMs Nose: Normal Inspection Throat/Mouth: Normal Inspection Head: Atraumatic Neck: Normal Inspection Respiratory/Chest: No Respiratory Distress Cardiovascular: Regular Rate, Rhythm GI/Abdominal: Soft, Non-Tender (Female) Exam: Deferred Rectal (Female) Exam: Deferred Back Exam: Other (pt has sciolois and a history of disc disease. Pt has muscle spasm accross the back) Extremities: Normal Inspection Neurological: Alert Psychiatric: Anxious Course - Vital Signs Last Recorded V/S: Last Vital Signs Temp 35.5 C 07/06/18 08:48 Pulse 128 H 07/06/18 08:48 Resp 16 07/06/18 08:48 BP 157/109 H 07/06/18 08:48 Pulse Ox 96 07/06/18 08:48 - Orders/Labs/Meds Orders: Active Orders 24 hr Category Date Time Status Lumbar Spine Min 4V [CR] Stat Exams 07/06/18 09:12 Taken Meds: Medications Discontinued Medications Generic Name Dose Route Start Last Admin Trade Name Freq PRN Reason Stop Dose Admin Oxycodone/Acetaminophen 1 tab 07/06/18 09:15 07/06/18 09:44 Percocet 325-5 Mg PO 07/06/18 09:16 1 tab ONETIME ONE Administration - Re-Assessments/Exams Free Text/Narrative Re-Assessment/Exam: 07/06/18 10:20 pt was given torodol 60mg im. She was also given percocet 5/325 Departure - Departure Time of Disposition: 10:01 Disposition: Home, Self-Care 01 Condition: Fair Clinical Impression: Lumbar paraspinal muscle spasm - Discharge Information Referrals: Tomy Woods MD [Primary Care Provider] - Forms: ED Department Discharge Care Plan Goals: physical therapy referal to deal with muscle spasm. Appt at the [facility] in [place] to evaluate her pain stimulator, Use flexeril 10mg hs regularly , flexeril 1/2 tab qam. Motrin 800mg tid regularly norco 5/325 q6h prn for severe pain,#20 Moist warm packs to the lumbar spine. After 5 days pt should go back to the naltrexone and use that as directed. - My Orders Last 24 Hours: My Active Orders 07/06/18 09:12 Lumbar Spine Min 4V [CR] Stat - Assessment/Plan Last 24 Hours: My Active Orders 07/06/18 09:12 Lumbar Spine Min 4V [CR] Stat
--- NOTE | 2018-07-06 11:14 | CR ---
Lumbar Spine Min 4V CLINICAL HISTORY: Low back pain FINDINGS: There are 6 lumbar type vertebrae. The vertebral body heights are maintained. There is disc space narrowing at lumbosacral junction.. There is moderate to the sclerosis abutting the L5-S1 endp lates. Alignment is maintained. There is a mild levorotoscoliosis. There is arthropathy in the lower lumbar facets.. Patient has a thoracic spinal stimulator place. IMPRESSION: 6 lumbar type vertebrae Degenerative disc changes at the lumbosacral junction with moderate to the sclerosis at the endplate s, likely from chronic reactive changes. Mild levorotoscoliosis Osteoarthropathy in the lower lumbar facets
== END 2018-07-06 10:32 | disposition home or self-care (01) ==
LOC: JP.ED 08:31
DX: M62.830 Muscle spasm of back (principal); I10 Essential (primary) hypertension; J45.909 Unspecified asthma, uncomplicated; F31.9 Bipolar disorder, unspecified; F17.210 Nicotine dependence, cigarettes, uncomplicated; Z91.040 Latex allergy status; Z79.899 Other long term (current) drug therapy
CPT/HCPCS: 72110; 99284; A9270

== ENCOUNTER 2018-11-09 09:59 | Emergency (ER) | payer BC, MEDICARE ==
[2018-11-09 10:15] VITALS: BP 142/100
--- NOTE | 2018-11-09 10:39 | EDM.PDOC ---
ED HPI GENERAL MEDICAL PROBLEM - General Chief Complaint: Lower Extremity Injury/Pain Stated Complaint: KNEES AND LEGS ARE HURTING Time Seen by Provider: 11/09/18 10:15 Source of Information: Reports: Patient History Limitations: Reports: No Limitations - History of Present Illness INITIAL COMMENTS - FREE TEXT/NARRATIVE: 30-year-old female with chronic joint pain, chronic back pain, has been having problems with her knees for months. Apparently her chiropractic adjustments and physical therapy aren't helping, Toradol doesn't work and prednisone hasn't helped. She had another night where she had a hard time sleeping so came into the emergency room today. When asked why she didn't follow up with her primary doctor or orthopedics who has been following her for this for months she said because they "can't prescribe narcotics". She denies any fevers or chills, joint swelling or redness. Onset: Unknown/Unsure (Symptoms have been ongoing for months) Location: Reports: Generalized (Generalized the joints especially knees lower back and hips) Bilateral Leg Pain Score (Numeric/FACES): 10 - Related Data Allergies Allergy/AdvReac Type Severity Reaction Status Date / Time latex Allergy Itching Verified 11/09/18 10:08 morphine Allergy Hives Verified 11/09/18 10:08 codeine AdvReac Vomiting Verified 11/09/18 10:08 Home Meds: Home Meds Gabapentin [Neurontin] 800 mg PO TID 06/21/13 [History] Cyclobenzaprine [Flexeril] 10 mg PO TID PRN 10/24/13 [History] Haloperidol [Haldol] 7 mg PO QAM 10/24/13 [History] Propranolol [Inderal] 20 mg PO BID 10/24/13 [History] Verapamil [Calan SR] 120 mg PO QAM 10/24/13 [History] busPIRone [Buspar] 30 mg PO BID 10/24/13 [History] lamoTRIgine [Lamictal] 200 mg PO BID 10/24/13 [History] Albuterol Sulfate [Proair Hfa] 2 inhalation INH Q4H PRN 10/25/13 [History] Fluticasone Propionate [Flovent HFA 110 MCG] 1 puff INH BID 10/25/13 [History] Ibuprofen [Motrin] 800 mg PO Q8H PRN 10/25/13 [History] Venlafaxine HCl [Venlafaxine ER] 225 mg PO DAILY 10/25/13 [History] Verapamil HCl [Verapamil ER] 240 mg PO QPM 10/25/13 [History] medroxyPROGESTERone Acetate [Depo-Provera] 150 mg IM .[id number] 02/05/16 [History ] Benztropine Mesylate 2 mg PO BID 01/04/17 [History] Chromium Amino Acid Chelate [Chromium] 400 mcg PO DAILY 07/01/17 [History] Topiramate 50 mg PO BID 07/01/17 [History] metFORMIN [Glucophage] 1,000 mg PO BIDMEALS 07/01/17 [History] Haloperidol 10 mg PO BEDTIME 07/04/17 [History] ALPRAZolam [Xanax] 1 mg PO DAILY PRN 04/04/18 [History] Ergocalciferol (Vitamin D2) [Vitamin D2] 50,000 unit PO MOWEFR 04/04/18 [History ] Iron,Carbonyl/Ascorbic Acid [Iron 100-Vitamin C Tablet] 65 - 125 mg PO DAILY [History] Mometasone Furoate [Asmanex] 1 puff INH BID 04/04/18 [History] Multivitamin [Multiple Vitamins] 1 tab PO DAILY 04/04/18 [History] Naltrexone HCl [Revia] 25 mg PO BID 04/04/18 [History] Triamcinolone Acetonide [Triamcinolone Acetonide 0.1% Oint] 1 applic TOP BID PRN 04/04/18 [History] Zolpidem Tartrate [Ambien] 5 mg PO BEDTIME PRN 04/04/18 [History] Iron,Carbonyl/Ascorbic Acid [Vitron-C Tablet] 1 tab PO DAILY 04/17/18 [History] Past Medical History HEENT History: Reports: Other (See Below) Other HEENT History: wears glasses Cardiovascular History: Reports: Hypertension Respiratory History: Reports: Asthma, Bronchitis, Recurrent Gastrointestinal History: Reports: Cholelithiasis, Other (See Below) Other Gastrointestinal History: fatty liver Genitourinary History: Reports: Other (See Below) Other Genitourinary History: kidneys, overactive bladder LEAD SECTION SUPERVISOR History: Reports: , Other (See Below) Other LEAD SECTION SUPERVISOR 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 Depo- injections every 3 months. Genital herpes Musculoskeletal History: Reports: Back Pain, Chronic, Fracture, Fibromyalgia, Other (See Below) Other Musculoskeletal History: fx r elbow, DJD Neurological History: Reports: Migraines, Seizure Psychiatric History: Reports: ADHD, Addiction, Anxiety, Bipolar, Depression, OCD , PTSD, Schizophrenia Other Psychiatric History: Borderline personality disorder, schizoaffective disorder, self cutting behviors in past. 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 bariatric surgery 2002 Female Surgical History: Reports: Section Neurological Surgical History: Reports: Lumbar Spine Musculoskeletal Surgical History: Reports: Other (See Below) Other Musculoskeletal Surgeries/Procedures:: neuro stimulator implant to help with lower backpain, discectomy August 2015. foot surg. Social & Family History - Family History Family Medical History: Noncontributory Endocrine/Metabolic: Reports: Diabetes, type II - Tobacco Use Smoking Status *Q: Heavy Tobacco Smoker Years of Tobacco use: 16 Packs/Tins Daily: 1 - Caffeine Use Caffeine Use: Reports: None Other Caffeine Use: 4 cups of coffee - Recreational Drug Use Recreational Drug Use: No Review of Systems - Review of Systems Review Of Systems: See Below Constitutional: Denies: Fever Ears: Denies: Dizziness Respiratory: Denies: Shortness of Breath Cardiovascular: Denies: Chest Pain GI/Abdominal: Denies: Abdominal Pain Skin: Denies: Erythema Neurological: Denies: Headache ED EXAM, GENERAL - Physical Exam Exam: See Below Exam Limited By: No Limitations General Appearance: Alert, No Apparent Distress Head: Atraumatic Neck: Supple Respiratory/Chest: No Respiratory Distress Extremities: Other (Exam of the lower extremities reveal symmetrical knees, no effusions, no redness or warmth or inflammation. She reacts with palpation tenderness over the patellar tendon and medial and lateral joint line.) Course - Vital Signs Last Recorded V/S: Last Vital Signs Temp 97.1 F 11/09/18 10:14 Pulse 107 H 11/09/18 10:14 Resp 14 11/09/18 10:14 BP 142/100 H 11/09/18 10:14 Pulse Ox 97 11/09/18 10:14 - Orders/Labs/Meds Labs: Laboratory Tests 11/09/18 11/09/18 11/09/18 Range/Units 10:42 10:42 10:49 ESR 16 (0-25) mm/hr Creatine Kinase 67 (26-192) U/L C-Reactive Protein 0.05 (0.0-0.3) mg/dL Urine Color Yellow Urine Appearance Cloudy Urine pH 7.0 (4.5-8.0) Ur Specific [place] 1.005 L (1.008-1.030) Urine Protein Negative (NEGATIVE) mg/dL Urine Glucose (UA) Normal (NEGATIVE) mg/dL Urine Ketones Negative (NEGATIVE) mg/dL Urine Occult Blood Negative (NEGATIVE) Urine Nitrite Negative (NEGATIVE) Urine Bilirubin Negative (NEGATIVE) Urine Urobilinogen Normal (NORMAL) mg/dL Ur Leukocyte Esterase Moderate (NEGATIVE) Urine RBC Not seen (0-5) Urine WBC 20-30 H (0-5) Ur Epithelial Cells Few Amorphous Sediment Not seen Urine Bacteria Moderate Urine Mucus Not seen Urine Opiates Screen (NEGATIVE) Ur Oxycodone Screen (NEGATIVE) Urine Methadone Screen (NEGATIVE) Ur Propoxyphene Screen (NEGATIVE) Ur Barbiturates Screen (NEGATIVE) Ur Tricyclics Screen (NEGATIVE) Ur Phencyclidine Scrn (NEGATIVE) Ur Amphetamine Screen (NEGATIVE) U Methamphetamines Scrn (NEGATIVE) Urine MDMA Screen (NEGATIVE) U Benzodiazepines Scrn (NEGATIVE) U Cocaine Metab Screen (NEGATIVE) U Marijuana (THC) Screen (NEGATIVE) 11/09/18 Range/Units 10:49 ESR (0-25) mm/hr Creatine Kinase (26-192) U/L C-Reactive Protein (0.0-0.3) mg/dL Urine Color Urine Appearance Urine pH (4.5-8.0) Ur Specific [place] (1.008-1.030) Urine Protein (NEGATIVE) mg/dL Urine Glucose (UA) (NEGATIVE) mg/dL Urine Ketones (NEGATIVE) mg/dL Urine Occult Blood (NEGATIVE) Urine Nitrite (NEGATIVE) Urine Bilirubin (NEGATIVE) Urine Urobilinogen (NORMAL) mg/dL Ur Leukocyte Esterase (NEGATIVE) Urine RBC (0-5) Urine WBC (0-5) Ur Epithelial Cells Amorphous Sediment Urine Bacteria Urine Mucus Urine Opiates Screen Negative (NEGATIVE) Ur Oxycodone Screen Negative (NEGATIVE) Urine Methadone Screen Negative (NEGATIVE) Ur Propoxyphene Screen Negative (NEGATIVE) Ur Barbiturates Screen Negative (NEGATIVE) Ur Tricyclics Screen Presumptive positive H (NEGATIVE) Ur Phencyclidine Scrn Negative (NEGATIVE) Ur Amphetamine Screen Negative (NEGATIVE) U Methamphetamines Scrn Negative (NEGATIVE) Urine MDMA Screen Negative (NEGATIVE) U Benzodiazepines Scrn Negative (NEGATIVE) U Cocaine Metab Screen Negative (NEGATIVE) U Marijuana (THC) Screen Negative (NEGATIVE) - Re-Assessments/Exams Free Text/Narrative Re-Assessment/Exam: 11/09/18 10:38 A sedimentation rate, CRP, CK and urine drug screen and UA were obtained. 11/09/18 11:47 The patient's labs are all normal. She was encouraged to increase her activity, decrease her smoking and follow-up with orthopedics if not improving. Departure - Departure Time of Disposition: 11:55 Disposition: Home, Self-Care 01 Condition: Good Clinical Impression: Chronic joint pain Chronic pain Qualifiers: Chronic pain type: other chronic pain Qualified Code(s): G89.29 - Other chronic pain - Discharge Information Instructions: Chronic Pain, Adult Referrals: Tomy Woods MD [Primary Care Provider] - Forms: ED Department Discharge Care Plan Goals: Increase activity on a regular basis as tolerated. Recheck with orthopedics if not improving satisfactorily.
== END 2018-11-09 11:56 | disposition home or self-care (01) ==
LOC: JP.ED 09:59
DX: M25.562 Pain in left knee (principal); M25.561 Pain in right knee; M54.5 Low back pain; M25.551 Pain in right hip; M25.552 Pain in left hip; I10 Essential (primary) hypertension; J45.909 Unspecified asthma, uncomplicated; G89.29 Other chronic pain; F31.9 Bipolar disorder, unspecified; F41.9 Anxiety disorder, unspecified; F17.210 Nicotine dependence, cigarettes, uncomplicated; Z91.040 Latex allergy status; Z88.5 Allergy status to narcotic agent; Z79.899 Other long term (current) drug therapy
CPT/HCPCS: 36415; 80305-QW; 81001; 82550; 85651; 86140; 99284

== ENCOUNTER 2018-11-12 12:08 | Emergency (ER) | payer MEDICARE ==
[2018-11-12 12:42] VITALS: BP 112/71
--- NOTE | 2018-11-12 13:47 | EDM.PDOC ---
ED HPI GENERAL MEDICAL PROBLEM - General Chief Complaint: Skin Complaint Stated Complaint: POSSIBLE RINGWORM Time Seen by Provider: 11/12/18 13:36 Source of Information: Reports: Patient History Limitations: Reports: No Limitations - History of Present Illness INITIAL COMMENTS - FREE TEXT/NARRATIVE: This lady comes in here with a complaints of possible ringworm. She notices several areas on her bodygoing on for maybe a week or so. She says it really doesn't itch. She doesn't think it's eczema. Her male friend is here for the same thing except he has just one single lesion. - Related Data Allergies Allergy/AdvReac Type Severity Reaction Status Date / Time latex Allergy Itching Verified 11/12/18 12:40 morphine Allergy Hives Verified 11/12/18 12:40 codeine AdvReac Vomiting Verified 11/12/18 12:40 Home Meds: Home Meds Gabapentin [Neurontin] 800 mg PO TID 06/21/13 [History] Cyclobenzaprine [Flexeril] 10 mg PO TID PRN 10/24/13 [History] Haloperidol [Haldol] 7 mg PO QAM 10/24/13 [History] Propranolol [Inderal] 20 mg PO BID 10/24/13 [History] Verapamil [Calan SR] 120 mg PO QAM 10/24/13 [History] busPIRone [Buspar] 30 mg PO BID 10/24/13 [History] lamoTRIgine [Lamictal] 200 mg PO BID 10/24/13 [History] Albuterol Sulfate [Proair Hfa] 2 inhalation INH Q4H PRN 10/25/13 [History] Fluticasone Propionate [Flovent HFA 110 MCG] 1 puff INH BID 10/25/13 [History] Ibuprofen [Motrin] 800 mg PO Q8H PRN 10/25/13 [History] Venlafaxine HCl [Venlafaxine ER] 225 mg PO DAILY 10/25/13 [History] Verapamil HCl [Verapamil ER] 240 mg PO QPM 10/25/13 [History] medroxyPROGESTERone Acetate [Depo-Provera] 150 mg IM .[id number] 02/05/16 [History ] Benztropine Mesylate 2 mg PO BID 01/04/17 [History] Chromium Amino Acid Chelate [Chromium] 400 mcg PO DAILY 07/01/17 [History] Topiramate 50 mg PO BID 07/01/17 [History] metFORMIN [Glucophage] 1,000 mg PO BIDMEALS 07/01/17 [History] Haloperidol 10 mg PO BEDTIME 07/04/17 [History] ALPRAZolam [Xanax] 1 mg PO DAILY PRN 04/04/18 [History] Ergocalciferol (Vitamin D2) [Vitamin D2] 50,000 unit PO MOWEFR 04/04/18 [History ] Iron,Carbonyl/Ascorbic Acid [Iron 100-Vitamin C Tablet] 65 - 125 mg PO DAILY [History] Mometasone Furoate [Asmanex] 1 puff INH BID 04/04/18 [History] Multivitamin [Multiple Vitamins] 1 tab PO DAILY 04/04/18 [History] Naltrexone HCl [Revia] 25 mg PO BID 04/04/18 [History] Triamcinolone Acetonide [Triamcinolone Acetonide 0.1% Oint] 1 applic TOP BID PRN 04/04/18 [History] Zolpidem Tartrate [Ambien] 5 mg PO BEDTIME PRN 04/04/18 [History] Iron,Carbonyl/Ascorbic Acid [Vitron-C Tablet] 1 tab PO DAILY 04/17/18 [History] Past Medical History HEENT History: Reports: Other (See Below) Other HEENT History: wears glasses Cardiovascular History: Reports: Hypertension Respiratory History: Reports: Asthma, Bronchitis, Recurrent Gastrointestinal History: Reports: Cholelithiasis, Other (See Below) Other Gastrointestinal History: fatty liver Genitourinary History: Reports: Other (See Below) Other Genitourinary History: kidneys, overactive bladder 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 Depo- injections every 3 months. Genital herpes Musculoskeletal History: Reports: Back Pain, Chronic, Fracture, Fibromyalgia, Other (See Below) Other Musculoskeletal History: fx r elbow, DJD Neurological History: Reports: Migraines, Seizure Psychiatric History: Reports: ADHD, Addiction, Anxiety, Bipolar, Depression, OCD , PTSD, Schizophrenia Other Psychiatric History: Borderline personality disorder, schizoaffective disorder, self cutting behviors in past. 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 bariatric surgery 2002 Female Surgical History: Reports: Section Endocrine Surgical History: Reports: None Neurological Surgical History: Reports: Lumbar Spine Musculoskeletal Surgical History: Reports: Other (See Below) Other Musculoskeletal Surgeries/Procedures:: neuro stimulator implant to help with lower backpain, discectomy August 2015. foot surg. Dermatological Surgical History: Reports: None Social & Family History - Family History Family Medical History: Noncontributory Endocrine/Metabolic: Reports: Diabetes, type II - Tobacco Use Smoking Status *Q: Current Every Day Smoker Years of Tobacco use: 16 Packs/Tins Daily: 1 Used Tobacco, but Quit: No Second Hand Smoke Exposure: Yes - Caffeine Use Caffeine Use: Reports: Coffee, Energy Drinks Other Caffeine Use: 4 cups of coffee - Recreational Drug Use Recreational Drug Use: No ED ROS GENERAL - Review of Systems Review Of Systems: ROS reveals no pertinent complaints other than HPI. ED EXAM, SKIN/RASH Exam: See Below Exam Limited By: No Limitations General Appearance: Alert, WD/WN, No Apparent Distress Skin: Other (This lady has several lesions on her body that could be small areas of tinea corporis. He could also be eczema that she is certain that that is not possible.) Course - Vital Signs Last Recorded V/S: Last Vital Signs Temp 35.4 C 11/12/18 12:42 Pulse 94 11/12/18 12:42 Resp 16 11/12/18 12:42 BP 112/71 11/12/18 12:42 Pulse Ox 99 11/12/18 12:42 Departure - Departure Time of Disposition: 13:45 Disposition: Home, Self-Care 01 Condition: Fair Clinical Impression: Tinea corporis, Tinea - Discharge Information Referrals: Tomy Woods MD [Primary Care Provider] - Additional Instructions: Use either miconazole or clotrimazole cream. You could also use terbinafine cream once 3 times a day.
== END 2018-11-12 13:53 | disposition home or self-care (01) ==
LOC: JP.ED 12:08
DX: B35.4 Tinea corporis (principal); I10 Essential (primary) hypertension; F41.9 Anxiety disorder, unspecified; F32.9 Major depressive disorder, single episode, unspecified; F17.210 Nicotine dependence, cigarettes, uncomplicated; Z98.84 Bariatric surgery status; Z90.49 Acquired absence of other specified parts of digestive tract; Z79.899 Other long term (current) drug therapy; Z79.84 Long term (current) use of oral hypoglycemic drugs; Z88.5 Allergy status to narcotic agent; Z91.040 Latex allergy status
CPT/HCPCS: 99283

== ENCOUNTER 2018-12-13 13:15 | Emergency (ER) | payer BC, MEDICARE ==
[2018-12-13 14:10] VITALS: BP 130/86
--- NOTE | 2018-12-13 15:20 | EDM.PDOC ---
ED HPI GENERAL MEDICAL PROBLEM - General Chief Complaint: General Stated Complaint: CHEST PAINS Time Seen by Provider: 12/13/18 14:20 Source of Information: Reports: Patient, Family History Limitations: Reports: No Limitations - History of Present Illness INITIAL COMMENTS - FREE TEXT/NARRATIVE: 30-year-old female with persistent recurring left anterior chest pain since falling and striking her chest on the corner of a dresser 3 weeks ago. No shortness of breath or fever. Onset: Sudden (3 weeks ago) Duration: Waxing/Waning Location: Reports: Chest (Left anterior chest) Worsens with: Reports: Other (Coughing or breathing) Associated Symptoms: Reports: No Other Symptoms Left Chest Pain Score (Numeric/FACES): 9 - Related Data Allergies Allergy/AdvReac Type Severity Reaction Status Date / Time latex Allergy Itching Verified 12/13/18 14:11 morphine Allergy Hives Verified 12/13/18 14:11 codeine AdvReac Vomiting Verified 12/13/18 14:11 Home Meds: Home Meds Gabapentin [Neurontin] 800 mg PO TID 06/21/13 [History] Cyclobenzaprine [Flexeril] 10 mg PO TID PRN 10/24/13 [History] Haloperidol [Haldol] 7 mg PO QAM 10/24/13 [History] Propranolol [Inderal] 20 mg PO BID 10/24/13 [History] Verapamil [Calan SR] 120 mg PO QAM 10/24/13 [History] busPIRone [Buspar] 30 mg PO BID 10/24/13 [History] lamoTRIgine [Lamictal] 200 mg PO BID 10/24/13 [History] Albuterol Sulfate [Proair Hfa] 2 inhalation INH Q4H PRN 10/25/13 [History] Fluticasone Propionate [Flovent HFA 110 MCG] 1 puff INH BID 10/25/13 [History] Ibuprofen [Motrin] 800 mg PO Q8H PRN 10/25/13 [History] Venlafaxine HCl [Venlafaxine ER] 225 mg PO DAILY 10/25/13 [History] Verapamil HCl [Verapamil ER] 240 mg PO QPM 10/25/13 [History] medroxyPROGESTERone Acetate [Depo-Provera] 150 mg IM .[id number] 02/05/16 [History ] Benztropine Mesylate 2 mg PO BID 01/04/17 [History] Chromium Amino Acid Chelate [Chromium] 400 mcg PO DAILY 07/01/17 [History] Topiramate 50 mg PO BID 07/01/17 [History] metFORMIN [Glucophage] 1,000 mg PO BIDMEALS 07/01/17 [History] Haloperidol 10 mg PO BEDTIME 07/04/17 [History] ALPRAZolam [Xanax] 1 mg PO DAILY PRN 04/04/18 [History] Ergocalciferol (Vitamin D2) [Vitamin D2] 50,000 unit PO MOWEFR 04/04/18 [History ] Iron,Carbonyl/Ascorbic Acid [Iron 100-Vitamin C Tablet] 65 - 125 mg PO DAILY [History] Mometasone Furoate [Asmanex] 1 puff INH BID 04/04/18 [History] Multivitamin [Multiple Vitamins] 1 tab PO DAILY 04/04/18 [History] Naltrexone HCl [Revia] 25 mg PO BID 04/04/18 [History] Triamcinolone Acetonide [Triamcinolone Acetonide 0.1% Oint] 1 applic TOP BID PRN 04/04/18 [History] Zolpidem Tartrate [Ambien] 5 mg PO BEDTIME PRN 04/04/18 [History] Iron,Carbonyl/Ascorbic Acid [Vitron-C Tablet] 1 tab PO DAILY 04/17/18 [History] Past Medical History HEENT History: Reports: Other (See Below) Other HEENT History: wears glasses Cardiovascular History: Reports: Hypertension Respiratory History: Reports: Asthma, Bronchitis, Recurrent Gastrointestinal History: Reports: Cholelithiasis, Other (See Below) Other Gastrointestinal History: fatty liver Genitourinary History: Reports: Other (See Below) Other Genitourinary History: kidneys, overactive bladder 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 Depo- injections every 3 months. Genital herpes Musculoskeletal History: Reports: Back Pain, Chronic, Fracture, Fibromyalgia, Other (See Below) Other Musculoskeletal History: fx r elbow, DJD Neurological History: Reports: Migraines, Seizure Psychiatric History: Reports: ADHD, Addiction, Anxiety, Bipolar, Depression, OCD , PTSD, Schizophrenia Other Psychiatric History: Borderline personality disorder, schizoaffective disorder, self cutting behviors in past. 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 bariatric surgery 2002 Female Surgical History: Reports: Section Endocrine Surgical History: Reports: None Neurological Surgical History: Reports: Lumbar Spine Musculoskeletal Surgical History: Reports: Other (See Below) Other Musculoskeletal Surgeries/Procedures:: neuro stimulator implant to help with lower backpain, discectomy August 2015. foot surg. Social & Family History - Family History Family Medical History: Noncontributory Endocrine/Metabolic: Reports: Diabetes, type II - Tobacco Use Smoking Status *Q: Current Every Day Smoker Years of Tobacco use: 16 Packs/Tins Daily: 1 Used Tobacco, but Quit: No - Caffeine Use Caffeine Use: Reports: Coffee, Energy Drinks Other Caffeine Use: 4 cups of coffee - Recreational Drug Use Recreational Drug Use: No ED ROS GENERAL - Review of Systems Review Of Systems: See Below Constitutional: Denies: Fever, Chills HEENT: Reports: No Symptoms Respiratory: Reports: Pleuritic Chest Pain, Cough. Denies: Shortness of Breath Cardiovascular: Reports: Chest Pain. Denies: Palpitations GI/Abdominal: Denies: Abdominal Pain, Nausea, Vomiting Skin: Denies: Bruising Neurological: Denies: Headache ED EXAM, GENERAL - Physical Exam Exam: See Below Exam Limited By: No Limitations General Appearance: Alert, No Apparent Distress Head: Atraumatic Neck: Supple, Non-Tender Respiratory/Chest: No Respiratory Distress, Lungs Clear, Other (She has tenderness over the lower left costochondral junction.) Cardiovascular: Regular Rate, Rhythm GI/Abdominal: Soft, Non-Tender Neurological: Alert, Oriented Psychiatric: Normal Affect, Normal Mood Skin Exam: Warm, Dry Course - Vital Signs Last Recorded V/S: Last Vital Signs Temp 95.0 F L 12/13/18 14:15 Pulse 88 12/13/18 14:15 Resp 18 12/13/18 14:15 BP 130/86 12/13/18 14:15 Pulse Ox 99 12/13/18 14:15 - Re-Assessments/Exams Free Text/Narrative Re-Assessment/Exam: 12/13/18 15:45 Two-view chest x-ray was normal other than past surgical changes. Patient was reassured she has costochondritis which should resolve, heating pad may be beneficial. Anti-inflammatories will also be helpful, and she can recheck next week for a physical therapy consultation if not improving. Departure - Departure Time of Disposition: 15:35 Disposition: Home, Self-Care 01 Condition: Good Clinical Impression: Costochondritis - Discharge Information Instructions: Costochondritis, [id number] Referrals: Tomy Woods MD [Primary Care Provider] - Forms: ED Department Discharge Care Plan Goals: Heating pad to the sore area may help. Consider rechecking next week if not improving satisfactorily as physical therapy may be beneficial. Increase activity as tolerated.
--- NOTE | 2018-12-13 15:20 | CRLCR ---
Indication: Dyspnea Technique: Chest 2 view Comparison: January 04, 2017 Findings: Cardiovascular and mediastinum: Heart size and vasculature are normal in caliber and appearance. Mediastinum is within normal limits. Lungs and pleural space: Lungs are clear. No sign of infiltrate or mass. No sign of pleural effusion. No pneumothorax. Bones and soft tissues: Electrical wires project over the spinal canal with the tips terminating at the T6 level. Remote right rib fractures noted. Impression: : No acute abnormality. Dictated by Danika Osuna MD @ Dec 13 2018 3:16PM Signed by Dr. Danika Osuna @ Dec 13 2018 3:18PM
== END 2018-12-13 15:35 | disposition home or self-care (01) ==
LOC: JP.ED 13:15
DX: M94.0 Chondrocostal junction syndrome [Tietze] (principal); I10 Essential (primary) hypertension; F17.210 Nicotine dependence, cigarettes, uncomplicated; Z91.040 Latex allergy status; Z88.5 Allergy status to narcotic agent; Z79.899 Other long term (current) drug therapy
CPT/HCPCS: 71046; 99284-25

== ENCOUNTER 2018-12-18 09:09 | Emergency (ER) | payer MEDICARE ==
[2018-12-18] MEDS ORDERED: Acetaminophen/oxyCODONE 325-5 MG Tab PO ONE (10:31)
[2018-12-18] MEDS ORDERED: Ketorolac 60 MG/2 ML SDV IM ONE (10:31)
--- NOTE | 2018-12-18 10:35 | EDM.PDOC ---
ED HPI GENERAL MEDICAL PROBLEM - General Chief Complaint: Back Pain or Injury Stated Complaint: VIA [facility] Time Seen by Provider: 12/18/18 10:33 Source of Information: Reports: Patient History Limitations: Reports: No Limitations - History of Present Illness INITIAL COMMENTS - FREE TEXT/NARRATIVE: pt arrived with pain in the lower back and pelvis. This is more on the rt than the left. Onset: Today, Other (pt fell down the stairs. ) Duration: Hour(s): Location: Reports: Back, Pelvis Associated Symptoms: Reports: No Other Symptoms Right Lower Back Pain Score (Numeric/FACES): 10 - Related Data Allergies Allergy/AdvReac Type Severity Reaction Status Date / Time latex Allergy Itching Verified 12/18/18 09:22 morphine Allergy Hives Verified 12/18/18 09:22 codeine AdvReac Vomiting Verified 12/18/18 09:22 Home Meds: Home Meds Gabapentin [Neurontin] 800 mg PO TID 06/21/13 [History] Cyclobenzaprine [Flexeril] 10 mg PO TID PRN 10/24/13 [History] Haloperidol [Haldol] 7 mg PO QAM 10/24/13 [History] Propranolol [Inderal] 20 mg PO BID 10/24/13 [History] Verapamil [Calan SR] 120 mg PO QAM 10/24/13 [History] busPIRone [Buspar] 30 mg PO BID 10/24/13 [History] lamoTRIgine [Lamictal] 200 mg PO BID 10/24/13 [History] Albuterol Sulfate [Proair Hfa] 2 inhalation INH Q4H PRN 10/25/13 [History] Fluticasone Propionate [Flovent HFA 110 MCG] 1 puff INH BID 10/25/13 [History] Ibuprofen [Motrin] 800 mg PO Q8H PRN 10/25/13 [History] Venlafaxine HCl [Venlafaxine ER] 225 mg PO DAILY 10/25/13 [History] Verapamil HCl [Verapamil ER] 240 mg PO QPM 10/25/13 [History] medroxyPROGESTERone Acetate [Depo-Provera] 150 mg IM .[id number] 02/05/16 [History ] Benztropine Mesylate 2 mg PO BID 01/04/17 [History] Chromium Amino Acid Chelate [Chromium] 400 mcg PO DAILY 07/01/17 [History] Topiramate 50 mg PO BID 07/01/17 [History] metFORMIN [Glucophage] 1,000 mg PO BIDMEALS 07/01/17 [History] Haloperidol 10 mg PO BEDTIME 07/04/17 [History] ALPRAZolam [Xanax] 1 mg PO DAILY PRN 04/04/18 [History] Ergocalciferol (Vitamin D2) [Vitamin D2] 50,000 unit PO MOWEFR 04/04/18 [History ] Iron,Carbonyl/Ascorbic Acid [Iron 100-Vitamin C Tablet] 65 - 125 mg PO DAILY [History] Mometasone Furoate [Asmanex] 1 puff INH BID 04/04/18 [History] Multivitamin [Multiple Vitamins] 1 tab PO DAILY 04/04/18 [History] Naltrexone HCl [Revia] 25 mg PO BID 04/04/18 [History] Triamcinolone Acetonide [Triamcinolone Acetonide 0.1% Oint] 1 applic TOP BID PRN 04/04/18 [History] Zolpidem Tartrate [Ambien] 5 mg PO BEDTIME PRN 04/04/18 [History] Iron,Carbonyl/Ascorbic Acid [Vitron-C Tablet] 1 tab PO DAILY 04/17/18 [History] Past Medical History HEENT History: Reports: Other (See Below) Other HEENT History: wears glasses Cardiovascular History: Reports: Hypertension Respiratory History: Reports: Asthma, Bronchitis, Recurrent Gastrointestinal History: Reports: Cholelithiasis, Other (See Below) Other Gastrointestinal History: fatty liver Genitourinary History: Reports: Other (See Below) Other Genitourinary History: kidneys, overactive bladder 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 Depo- injections every 3 months. Genital herpes Musculoskeletal History: Reports: Back Pain, Chronic, Fracture, Fibromyalgia, Other (See Below) Other Musculoskeletal History: fx r elbow, DJD Neurological History: Reports: Migraines, Seizure Psychiatric History: Reports: ADHD, Addiction, Anxiety, Bipolar, Depression, OCD , PTSD, Schizophrenia Other Psychiatric History: Borderline personality disorder, schizoaffective disorder, self cutting behviors in past. 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 bariatric surgery 2002 Female Surgical History: Reports: Section Endocrine Surgical History: Reports: None Neurological Surgical History: Reports: Lumbar Spine Musculoskeletal Surgical History: Reports: Other (See Below) Other Musculoskeletal Surgeries/Procedures:: neuro stimulator implant to help with lower backpain, discectomy August 2015. foot surg. Social & Family History - Family History Family Medical History: Noncontributory Endocrine/Metabolic: Reports: Diabetes, type II - Tobacco Use Smoking Status *Q: Current Every Day Smoker Years of Tobacco use: 16 Packs/Tins Daily: 1 Used Tobacco, but Quit: No Second Hand Smoke Exposure: Yes - Caffeine Use Caffeine Use: Reports: Coffee, Energy Drinks, Soda, Tea Other Caffeine Use: 4 cups of coffee - Recreational Drug Use Recreational Drug Use: No ED ROS GENERAL - Review of Systems Review Of Systems: See Below Constitutional: Reports: No Symptoms HEENT: Reports: No Symptoms Respiratory: Reports: No Symptoms Cardiovascular: Reports: No Symptoms Endocrine: Reports: No Symptoms GI/Abdominal: Reports: No Symptoms : Reports: No Symptoms Skin: Reports: Other ( pain in the lower back and pelvis. ) Neurological: Reports: No Symptoms Psychiatric: Reports: No Symptoms ED EXAM,LOWER BACK PAIN/INJURY - Physical Exam Exam: See Below Text/Narrative:: Pt arrived with pain in the lower back more over the rt hip area. She had some slippery soaks on ans she slipped on the steps and went down about 6 steps. Exam Limited By: No Limitations General Appearance: Alert, Anxious, Moderate Distress Ears: Normal TMs Nose: Normal Inspection Throat/Mouth: Normal Inspection Head: Atraumatic Neck: Normal Inspection Respiratory/Chest: No Respiratory Distress Cardiovascular: Regular Rate, Rhythm GI/Abdominal: Soft, Non-Tender (Female) Exam: Deferred Rectal (Female) Exam: Deferred Back Exam: Muscle Spasm, Paraspinal Tenderness, Other ( pain over the rt hip) Extremities: Normal Inspection Neurological: Alert, Oriented x 3 Psychiatric: Anxious Course - Vital Signs Last Recorded V/S: Last Vital Signs Temp 35.6 C 12/18/18 09:38 Pulse 87 12/18/18 09:38 Resp 13 12/18/18 09:38 BP 112/79 12/18/18 09:38 Pulse Ox 95 12/18/18 09:38 - Orders/Labs/Meds Orders: Active Orders 24 hr Category Date Time Status Lumbar Spine Min 4V [CR] Stat Exams 12/18/18 10:28 Taken Pelvis 1V or 2V [CR] Stat Exams 12/18/18 10:29 Taken Meds: Medications Discontinued Medications Generic Name Dose Route Start Last Admin Trade Name Freq PRN Reason Stop Dose Admin Ketorolac Tromethamine 60 mg 12/18/18 10:31 12/18/18 10:39 Toradol IM 12/18/18 10:32 60 mg ONETIME ONE Administration Oxycodone/Acetaminophen 1 tab 12/18/18 10:31 12/18/18 10:38 Percocet 325-5 Mg PO 12/18/18 10:32 1 tab ONETIME ONE Administration - Re-Assessments/Exams Free Text/Narrative Re-Assessment/Exam: 12/18/18 11:23 pelvis appears noraml. Pt has some degenerative changes on the lumbar spine. Departure - Departure Time of Disposition: 11:24 Disposition: Home, Self-Care 01 Condition: Fair Clinical Impression: Contusion of lower back - Discharge Information Referrals: PCP,None [Primary Care Provider] - Forms: ED Department Discharge Care Plan Goals: ice packs to the area, send ice packs home with pt, rest with some range of motion Use the flexeril that she has at home 15 mg hs. ultram 50mg q6h prn for pain # 15 - My Orders Last 24 Hours: My Active Orders 12/18/18 10:28 Lumbar Spine Min 4V [CR] Stat 12/18/18 10:29 Pelvis 1V or 2V [CR] Stat - Assessment/Plan Last 24 Hours: My Active Orders 12/18/18 10:28 Lumbar Spine Min 4V [CR] Stat 12/18/18 10:29 Pelvis 1V or 2V [CR] Stat
[2018-12-18] MEDS ORDERED: traMADol 50 MG Tab PO ONE (11:27)
[2018-12-18 11:40] VITALS: BP 114/68
--- NOTE | 2018-12-18 11:55 | CRLCR ---
INDICATION: Right lower lumbar pain. TECHNIQUE: Lumbar spine with bilateral obliques 5 view COMPARISON: None FINDINGS: Bones: Alignment is normal. No fracture or bone lesion visualized. However, the L5 vertebral body is not well visualized but appears deformed. Joints: Disc spaces appear maintained. Moderate facet joint spondylosis is present at L3-4 and L4-5. foramina on the left appear patent. Foramina on the right are not well visualized. Soft tissues: Unremarkable. IMPRESSION: Facet joint spondylosis is present at multiple levels in the lower lumbar spine. L5 vertebral body is not well visualized but appears deformed. No other specific finding to explain pain. Further evaluation with CT or MRI should be considered to further evaluate the source of the patient`s pain. Dictated by Orville Montero MD @ 12/18/2018 11:53:33 AM Dictated by: Orville Montero MD @ 12/18/2018 11:53:41 (Electronically Signed)
--- NOTE | 2018-12-18 11:57 | CRLCR ---
Indication: Right lower lumbar pain status post fall Technique: Pelvis 1 view Comparison: None Findings: Bones: Alignment is normal. No fractures or bone lesions. Joint spaces: Hip and sacroiliac joint spaces are preserved. No degenerative changes. Soft tissues: Unremarkable. Impression: No findings to explain pain. Dictated by Orville Montero MD @ 12/18/2018 11:55:13 AM Dictated by: Orville Montero MD @ 12/18/2018 11:55:21 (Electronically Signed)
== END 2018-12-18 11:40 | disposition home or self-care (01) ==
LOC: JP.ED 09:09
DX: S30.0XXA Contusion of lower back and pelvis, initial encounter (principal); M25.551 Pain in right hip; I10 Essential (primary) hypertension; D64.9 Anemia, unspecified; F41.9 Anxiety disorder, unspecified; F32.9 Major depressive disorder, single episode, unspecified; F17.210 Nicotine dependence, cigarettes, uncomplicated; Z98.84 Bariatric surgery status; Z90.49 Acquired absence of other specified parts of digestive tract; Z79.84 Long term (current) use of oral hypoglycemic drugs; Z79.899 Other long term (current) drug therapy; Z88.5 Allergy status to narcotic agent; Z91.040 Latex allergy status; W10.9XXA Fall (on) (from) unspecified stairs and steps, initial encounter
CPT/HCPCS: 72110; 72170; 82962; 96372; 99283; A9270; J1885

== ENCOUNTER 2018-12-22 08:22 | Emergency (ER) | payer MEDICARE, BC ==
[2018-12-22 08:43] VITALS: BP 112/78
[2018-12-22] MEDS ORDERED: Acetaminophen/oxyCODONE 325-5 MG Tab PO ONE (09:25)
--- NOTE | 2018-12-22 09:30 | EDM.PDOC ---
ED HPI GENERAL MEDICAL PROBLEM - General Chief Complaint: Back Pain or Injury Stated Complaint: FELL DOWN STAIRS AND HURT BACK Time Seen by Provider: 12/22/18 09:26 Source of Information: Reports: Patient History Limitations: Reports: No Limitations - History of Present Illness INITIAL COMMENTS - FREE TEXT/NARRATIVE: pt fell down the stairs on Tuesday the and she now is very bruised and is not having good pain control. Onset: Gradual, Other (pt feels like the tramodol is not giving her good relief. ) Duration: Day(s): Location: Reports: Back Associated Symptoms: Reports: No Other Symptoms - Related Data Allergies Allergy/AdvReac Type Severity Reaction Status Date / Time latex Allergy Itching Verified 12/22/18 08:46 morphine Allergy Hives Verified 12/22/18 08:46 codeine AdvReac Vomiting Verified 12/22/18 08:46 Home Meds: Home Meds Gabapentin [Neurontin] 800 mg PO TID 06/21/13 [History] Cyclobenzaprine [Flexeril] 10 mg PO TID PRN 10/24/13 [History] Haloperidol [Haldol] 7 mg PO QAM 10/24/13 [History] Propranolol [Inderal] 20 mg PO BID 10/24/13 [History] Verapamil [Calan SR] 120 mg PO QAM 10/24/13 [History] busPIRone [Buspar] 30 mg PO BID 10/24/13 [History] lamoTRIgine [Lamictal] 200 mg PO BID 10/24/13 [History] Albuterol Sulfate [Proair Hfa] 2 inhalation INH Q4H PRN 10/25/13 [History] Fluticasone Propionate [Flovent HFA 110 MCG] 1 puff INH BID 10/25/13 [History] Ibuprofen [Motrin] 800 mg PO Q8H PRN 10/25/13 [History] Venlafaxine HCl [Venlafaxine ER] 225 mg PO DAILY 10/25/13 [History] Verapamil HCl [Verapamil ER] 240 mg PO QPM 10/25/13 [History] medroxyPROGESTERone Acetate [Depo-Provera] 150 mg IM .[id number] 02/05/16 [History ] Benztropine Mesylate 2 mg PO BID 01/04/17 [History] Chromium Amino Acid Chelate [Chromium] 400 mcg PO DAILY 07/01/17 [History] Topiramate 50 mg PO BID 07/01/17 [History] metFORMIN [Glucophage] 1,000 mg PO BIDMEALS 07/01/17 [History] Haloperidol 10 mg PO BEDTIME 07/04/17 [History] ALPRAZolam [Xanax] 1 mg PO DAILY PRN 04/04/18 [History] Ergocalciferol (Vitamin D2) [Vitamin D2] 50,000 unit PO MOWEFR 04/04/18 [History ] Iron,Carbonyl/Ascorbic Acid [Iron 100-Vitamin C Tablet] 65 - 125 mg PO DAILY [History] Mometasone Furoate [Asmanex] 1 puff INH BID 04/04/18 [History] Multivitamin [Multiple Vitamins] 1 tab PO DAILY 04/04/18 [History] Naltrexone HCl [Revia] 25 mg PO BID 04/04/18 [History] Triamcinolone Acetonide [Triamcinolone Acetonide 0.1% Oint] 1 applic TOP BID PRN 04/04/18 [History] Zolpidem Tartrate [Ambien] 5 mg PO BEDTIME PRN 04/04/18 [History] Iron,Carbonyl/Ascorbic Acid [Vitron-C Tablet] 1 tab PO DAILY 04/17/18 [History] Past Medical History HEENT History: Reports: Other (See Below) Other HEENT History: wears glasses Cardiovascular History: Reports: Hypertension Respiratory History: Reports: Asthma, Bronchitis, Recurrent Gastrointestinal History: Reports: Cholelithiasis, Other (See Below) Other Gastrointestinal History: fatty liver Genitourinary History: Reports: Other (See Below) Other Genitourinary History: kidneys, overactive bladder 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 Depo- injections every 3 months. Genital herpes Musculoskeletal History: Reports: Back Pain, Chronic, Fracture, Fibromyalgia, Other (See Below) Other Musculoskeletal History: fx r elbow, DJD Neurological History: Reports: Migraines, Seizure Psychiatric History: Reports: ADHD, Addiction, Anxiety, Bipolar, Depression, OCD , PTSD, Schizophrenia Other Psychiatric History: Borderline personality disorder, schizoaffective disorder, self cutting behviors in past. 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 bariatric surgery 2003 Female Surgical History: Reports: Section Endocrine Surgical History: Reports: None Neurological Surgical History: Reports: Lumbar Spine Musculoskeletal Surgical History: Reports: Other (See Below) Other Musculoskeletal Surgeries/Procedures:: neuro stimulator implant to help with lower backpain, discectomy August 2015. foot surg. Social & Family History - Family History Family Medical History: Noncontributory Endocrine/Metabolic: Reports: Diabetes, type II - Tobacco Use Smoking Status *Q: Current Every Day Smoker Years of Tobacco use: 22 Packs/Tins Daily: 1 - Caffeine Use Caffeine Use: Reports: Coffee, Energy Drinks, Soda, Tea Other Caffeine Use: 4 cups of coffee ED ROS GENERAL - Review of Systems Review Of Systems: See Below Constitutional: Reports: No Symptoms, Other (increased pain) HEENT: Reports: No Symptoms Respiratory: Reports: No Symptoms Cardiovascular: Reports: No Symptoms Endocrine: Reports: No Symptoms GI/Abdominal: Reports: No Symptoms : Reports: No Symptoms Musculoskeletal: Reports: Other (pt is having poor control of her back pain. ) Skin: Reports: No Symptoms ED EXAM,LOWER BACK PAIN/INJURY - Physical Exam Exam: See Below Text/Narrative:: pt arrived with acute pain in the rt buttock area. She noted a bruise accross her entire devaughn from the fall on Tuesday. Exam Limited By: No Limitations General Appearance: Alert, Moderate Distress Ears: Normal External Exam Nose: Normal Inspection Throat/Mouth: Normal Inspection Back Exam: Other (pt is very tender over the rt buttock area. She has bruising accross the entire buttock. ) Extremities: Normal Inspection Neurological: Alert Course - Vital Signs Last Recorded V/S: Last Vital Signs Temp 35.2 C L 12/22/18 08:53 Pulse 92 12/22/18 08:53 Resp 11 L 12/22/18 08:53 BP 112/78 12/22/18 08:53 Pulse Ox 93 L 12/22/18 08:53 - Orders/Labs/Meds Meds: Medications Discontinued Medications Generic Name Dose Route Start Last Admin Trade Name Eloise PRN Reason Stop Dose Admin Hydromorphone HCl 0.5 mg 12/22/18 12:09 12/22/18 12:13 Dilaudid IM 12/22/18 12:10 0.5 mg ONETIME ONE Administration Ketorolac Tromethamine 60 mg 12/22/18 09:32 12/22/18 09:36 Toradol IM 12/22/18 09:33 60 mg ONETIME ONE Administration Oxycodone/Acetaminophen 1 tab 12/22/18 09:25 12/22/18 09:32 Percocet 325-5 Mg PO 12/22/18 09:26 1 tab ONETIME ONE Administration - Re-Assessments/Exams Free Text/Narrative Re-Assessment/Exam: 12/22/18 12:17 pt was given torodol 60mg im and percocet 5/325 which she got relieve from. She did have the pain come back and she was given dilaudid .5. She had a cat scan of the lumbar area. this does not reveal acute fractures. She has sig disc disease ar l4-l5 and l5 s1. Departure - Departure Time of Disposition: 12:22 Disposition: Home, Self-Care 01 Condition: Fair Clinical Impression: Lumbar contusion, Lumbar disc disease - Discharge Information Instructions: Back Pain, Adult, [id number] Referrals: Tomy Woods MD [Primary Care Provider] - Forms: ED Department Discharge Care Plan Goals: cool pack to the area, rest, stop neltrexone bridgette 4-5 days, torodol 10mg qid regularly for the next 5 days, Percocet 5/325 q8h for severe pain #[address] Daniel in 4-5 days.
[2018-12-22] MEDS ORDERED: Ketorolac 60 MG/2 ML SDV IM ONE (09:32)
[2018-12-22] MEDS ORDERED: HYDROmorphone 0.5 MG/0.5 ML Syringe IM ONE (12:09)
--- NOTE | 2018-12-22 13:04 | CRLCT ---
Final Report: Indication: Right lumbar/low back pain. Technique: Performed without IV contrast. Comparison: None available. Findings: Slight left convex lumbar curvature. Lateral lumbar alignment is anatomic. Prominent sclerosis is seen in the vertebral body marrow adjacent both endplates at L5-S1, likely reactive. No evidence for fracture, stress reaction, pars defect or worrisome bone lesion. No central canal stenosis is identified by CT. Spinal stimulator device noted in the right parasagittal posterior subcutaneous tissues at the L3 level. The leads from the device are coiled in the subcutaneous fat over the posterior paraspinal musculature at L1, and enter the posterior epidural space at the T12 and L1 levels. The tips of the leads are not included on this study. No additional paraspinal findings of note. T12-L1 minor disc degenerative changes. The facets are negative. The foramina are patent. L1-2: The disc and facets are negative. The foramina are patent. L2-3: The disc and facets are negative. The foramina are patent. L3-4: Minor facet and trace disc degenerative changes. The foramina are patent. L3-4: Minor disc and facet degenerative changes with low-grade foraminal narrowing. L4-5: [id number] facet osteoarthritis. Moderate disc degeneration with vacuum phenomenon. Possible shallow left subarticular disc herniation with potential left L5 root impingement. Moderate foraminal narrowing. L5-S1: Advanced vacuum disc degeneration with diffuse interbody spurring. Moderate bilateral facet osteoarthritis. Conjoined left L5 and S1 nerve roots. Moderate narrowing of both neural foramina. Impression: 1. Advanced vacuum disc degeneration at L5-S1. 2. Moderate bilateral facet osteoarthritis at the lowest 2 lumbar levels. 3. At L4-5 there is a possible shallow left subarticular disc herniation, with potential left L5 root impingement. 4. Spinal stimulator in place. Please note that all CT scans at this facility use dose modulation, iterative reconstruction, and/or weight-based dosing when appropriate to reduce radiation dose to as low as reasonably achievable. Dictated by Luis Felipe Osorio MD @ Dec 22 2018 11:59AM (Electronic Signature) MTDD
== END 2018-12-22 12:34 | disposition home or self-care (01) ==
LOC: JP.ED 08:22
DX: S30.0XXA Contusion of lower back and pelvis, initial encounter (principal); M51.9 Unspecified thoracic, thoracolumbar and lumbosacral intervertebral disc disorder; F17.210 Nicotine dependence, cigarettes, uncomplicated; I10 Essential (primary) hypertension; J45.909 Unspecified asthma, uncomplicated; Z91.040 Latex allergy status; Z88.5 Allergy status to narcotic agent; W10.9XXA Fall (on) (from) unspecified stairs and steps, initial encounter; Z79.899 Other long term (current) drug therapy
CPT/HCPCS: 72131; 96372; 96374; 99283; A9270; J1170; J1885

== ENCOUNTER 2019-03-04 16:05 | Emergency (ER) | payer MEDICARE, BC ==
[2019-03-04 16:22] VITALS: BP 147/100
[2019-03-04] MEDS ORDERED: Acetaminophen/oxyCODONE 325-5 MG Tab PO STA (16:33)
--- NOTE | 2019-03-04 16:39 | EDM.PDOC ---
ED HPI GENERAL MEDICAL PROBLEM - General Chief Complaint: General Stated Complaint: SORES IN HER MOUTH Time Seen by Provider: 03/04/19 16:25 Source of Information: Reports: Patient History Limitations: Reports: No Limitations - History of Present Illness INITIAL COMMENTS - FREE TEXT/NARRATIVE: Nicole presents to the ED today with c/o progressive sores to the inside of her mouth and tongue for the last two weeks. Patient initially was diagnosed with thrush, treated with nystatin which patient reports didn't help, then was prescribed Magic Mouth Wash with nystatin, again, didn't help. Patient has been eating ice as the cold helps with the pain, patient dose have hx of aphthous ulcers as well as cold sores, denies fever, chills. Denies any systemic systems or genital sores. Reports she thinks she is scheduled to see ENT later this week. 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, Other (see below) (Magic Mouthwash, Nystatin) - Related Data Allergies Allergy/AdvReac Type Severity Reaction Status Date / Time latex Allergy Itching Verified 03/04/19 16:34 morphine Allergy Hives Verified 03/04/19 16:34 codeine AdvReac Vomiting Verified 03/04/19 16:34 Home Meds: Home Meds Gabapentin [Neurontin] 800 mg PO TID 06/21/13 [History] Cyclobenzaprine [Flexeril] 10 mg PO TID PRN 10/24/13 [History] Haloperidol [Haldol] 7 mg PO QAM 10/24/13 [History] Propranolol [Inderal] 20 mg PO BID 10/24/13 [History] Verapamil [Calan SR] 120 mg PO QAM 10/24/13 [History] busPIRone [Buspar] 30 mg PO BID 10/24/13 [History] lamoTRIgine [Lamictal] 200 mg PO BID 10/24/13 [History] Albuterol Sulfate [Proair Hfa] 2 inhalation INH Q4H PRN 10/25/13 [History] Fluticasone Propionate [Flovent HFA 110 MCG] 1 puff INH BID 10/25/13 [History] Ibuprofen [Motrin] 800 mg PO Q8H PRN 10/25/13 [History] Venlafaxine HCl [Venlafaxine ER] 225 mg PO DAILY 10/25/13 [History] Verapamil HCl [Verapamil ER] 240 mg PO QPM 10/25/13 [History] medroxyPROGESTERone Acetate [Depo-Provera] 150 mg IM .[id number] 02/05/16 [History ] Benztropine Mesylate 2 mg PO BID 01/04/17 [History] Chromium Amino Acid Chelate [Chromium] 400 mcg PO DAILY 07/01/17 [History] Topiramate 50 mg PO BID 07/01/17 [History] metFORMIN [Glucophage] 1,000 mg PO BIDMEALS 07/01/17 [History] Haloperidol 10 mg PO BEDTIME 07/04/17 [History] ALPRAZolam [Xanax] 1 mg PO DAILY PRN 04/04/18 [History] Ergocalciferol (Vitamin D2) [Vitamin D2] 50,000 unit PO MOWEFR 04/04/18 [History ] Iron,Carbonyl/Ascorbic Acid [Iron 100-Vitamin C Tablet] 65 - 125 mg PO DAILY [History] Mometasone Furoate [Asmanex] 1 puff INH BID 04/04/18 [History] Multivitamin [Multiple Vitamins] 1 tab PO DAILY 04/04/18 [History] Naltrexone HCl [Revia] 25 mg PO BID 04/04/18 [History] Triamcinolone Acetonide [Triamcinolone Acetonide 0.1% Oint] 1 applic TOP BID PRN 04/04/18 [History] Zolpidem Tartrate [Ambien] 5 mg PO BEDTIME PRN 04/04/18 [History] Iron,Carbonyl/Ascorbic Acid [Vitron-C Tablet] 1 tab PO DAILY 04/17/18 [History] Past Medical History HEENT History: Reports: Other (See Below) Other HEENT History: wears glasses Cardiovascular History: Reports: Hypertension Respiratory History: Reports: Asthma, Bronchitis, Recurrent Gastrointestinal History: Reports: Cholelithiasis, Other (See Below) Other Gastrointestinal History: fatty liver Genitourinary History: Reports: Other (See Below) Other Genitourinary History: kidneys, overactive bladder 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 Depo- injections every 3 months. Genital herpes Musculoskeletal History: Reports: Back Pain, Chronic, Fracture, Fibromyalgia, Other (See Below) Other Musculoskeletal History: fx r elbow, DJD Neurological History: Reports: Migraines, Seizure Psychiatric History: Reports: ADHD, Addiction, Anxiety, Bipolar, Depression, OCD , PTSD, Schizophrenia Other Psychiatric History: Borderline personality disorder, schizoaffective disorder, self cutting behviors in past. 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 bariatric surgery 2002 Female Surgical History: Reports: Section Endocrine Surgical History: Reports: None Neurological Surgical History: Reports: Lumbar Spine Musculoskeletal Surgical History: Reports: Other (See Below) Other Musculoskeletal Surgeries/Procedures:: neuro stimulator implant to help with lower backpain, discectomy August 2015. foot surg. Dermatological Surgical History: Reports: None Social & Family History - Family History Family Medical History: Noncontributory Endocrine/Metabolic: Reports: Diabetes, type II - Caffeine Use Caffeine Use: Reports: Coffee, Energy Drinks, Soda, Tea Other Caffeine Use: 4 cups of coffee ED ROS GENERAL - Review of Systems Review Of Systems: ROS reveals no pertinent complaints other than HPI. ED EXAM, GENERAL - Physical Exam Exam: See Below Exam Limited By: No Limitations General Appearance: Alert, WD/WN, No Apparent Distress Nose: Normal Inspection Throat/Mouth: No Airway Compromise, Other (ulcerations noted to tongue and cheeks, voice is hoarse, no edema noted, no swelling to posterior oropharynx, no injections, no signs of thrush) Neck: Normal Inspection, Supple, Lymphadenopathy (R) (+2) Respiratory/Chest: No Respiratory Distress, Lungs Clear Cardiovascular: Normal Peripheral Pulses, Regular Rate, Rhythm, No Murmur GI/Abdominal: Normal Bowel Sounds, Soft, Non-Tender Back Exam: Normal Inspection, Full Range of Motion Extremities: Normal Inspection, Normal Range of Motion Neurological: Alert, Oriented, CN II-XII Intact Psychiatric: Normal Affect, Normal Mood Skin Exam: Warm, Dry, Intact Course - Vital Signs Last Recorded V/S: Last Vital Signs Temp 36.6 C 03/04/19 16:28 Pulse 89 03/04/19 16:28 Resp 16 03/04/19 16: BP 147/100 H 03/04/19 16: Pulse Ox 99 03/04/19 16:28 Nicole is a 38 year old female who presents to the ED today with a 2 weeks hx of progressive oral sores. Patient on arrival here is afebrile, she is mildly hypertensive. Exam reassuring except for the presence of the intra oral ulcerations and right anterior cervical lymphadenopathy. Patient is well hydrated and non toxic appearing. Given hx of cold sores in light of worsening ulcerations I am going to start patient on Acyclovir for a viral stomatitis. She denies any genital sores to be concerning for Behcet's. She was given Percocet for pain, narcotic safety and side effects discussed, no opioids on [place] [employer] since January She can continue magic mouthwash as needed as previously prescribed and follow up with ENT as scheduled. Reasons to return to the ED discussed, patient is agreeable to plan of care and discharged in stable condition with significant other driving. - Orders/Labs/Meds Meds: Medications Discontinued Medications Generic Name Dose Route Start Last Admin Trade Name Freq PRN Reason Stop Dose Admin Oxycodone/Acetaminophen 2 tab 03/04/19 16:33 Percocet 325-5 Mg PO 03/04/19 16:34 ONETIME STA Departure - Departure Time of Disposition: 17:00 Disposition: Home, Self-Care 01 Condition: Good Clinical Impression: Viral stomatitis - Discharge Information Instructions: Stomatitis, [id number] Referrals: Tomy Woods MD [Primary Care Provider] - Forms: ED Department Discharge Additional Instructions: Start the Acyclovir today. Ibuprofen for pain, Percocet for severe pain. Magic Mouthwash as previously prescribed.
== END 2019-03-04 16:46 | disposition home or self-care (01) ==
LOC: JP.ED 16:05
DX: K12.1 Other forms of stomatitis (principal); I10 Essential (primary) hypertension; F41.9 Anxiety disorder, unspecified; F32.9 Major depressive disorder, single episode, unspecified; Z88.5 Allergy status to narcotic agent; Z91.040 Latex allergy status; Z79.84 Long term (current) use of oral hypoglycemic drugs; Z79.899 Other long term (current) drug therapy; Z98.890 Other specified postprocedural states; Z90.49 Acquired absence of other specified parts of digestive tract
CPT/HCPCS: 99282; A9270

== ENCOUNTER 2019-03-09 14:03 | Emergency (ER) | payer MEDICARE, BC ==
[2019-03-09 14:20] VITALS: BP 141/92
--- NOTE | 2019-03-09 14:59 | EDM.PDOC ---
ED HPI GENERAL MEDICAL PROBLEM - General Chief Complaint: ENT Problem Stated Complaint: SORES IN MOUTH Time Seen by Provider: 03/09/19 14:40 Source of Information: Reports: Patient History Limitations: Reports: No Limitations - History of Present Illness INITIAL COMMENTS - FREE TEXT/NARRATIVE: Patient presents with continued oral open wounds in her mouth which been present for nearly 2 weeks. Patient was evaluated approximately 1 week ago for symptoms treated with acyclovir, antiviral medications for viral lesions. She was given Nystatin, Magic Mouth Wash and percocet for pain. Patient had minimal improvement of her symptoms with previous treatment. She ran out of pain medications and is concerned regarding pain. Patient has a fairly extensive history with multiple medications she is on Neurontin for nerve pain and multiple psychiatric medications and history of narcotic medication concerns Onset: Gradual - Related Data Allergies Allergy/AdvReac Type Severity Reaction Status Date / Time latex Allergy Itching Verified 03/09/19 14:29 morphine Allergy Hives Verified 03/09/19 14:29 codeine AdvReac Vomiting Verified 03/09/19 14:29 Home Meds: Home Meds Gabapentin [Neurontin] 800 mg PO TID 06/21/13 [History] Cyclobenzaprine [Flexeril] 10 mg PO TID PRN 10/24/13 [History] Haloperidol [Haldol] 7 mg PO QAM 10/24/13 [History] Propranolol [Inderal] 20 mg PO BID 10/24/13 [History] Verapamil [Calan SR] 120 mg PO QAM 10/24/13 [History] busPIRone [Buspar] 30 mg PO BID 10/24/13 [History] lamoTRIgine [Lamictal] 200 mg PO BID 10/24/13 [History] Albuterol Sulfate [Proair Hfa] 2 inhalation INH Q4H PRN 10/25/13 [History] Fluticasone Propionate [Flovent HFA 110 MCG] 1 puff INH BID 10/25/13 [History] Ibuprofen [Motrin] 800 mg PO Q8H PRN 10/25/13 [History] Venlafaxine HCl [Venlafaxine ER] 225 mg PO DAILY 10/25/13 [History] Verapamil HCl [Verapamil ER] 240 mg PO QPM 10/25/13 [History] medroxyPROGESTERone Acetate [Depo-Provera] 150 mg IM .[id number] 02/05/16 [History ] Benztropine Mesylate 2 mg PO BID 01/04/17 [History] Chromium Amino Acid Chelate [Chromium] 400 mcg PO DAILY 07/01/17 [History] Topiramate 50 mg PO BID 07/01/17 [History] metFORMIN [Glucophage] 1,000 mg PO BIDMEALS 07/01/17 [History] Haloperidol 10 mg PO BEDTIME 07/04/17 [History] ALPRAZolam [Xanax] 1 mg PO DAILY PRN 04/04/18 [History] Ergocalciferol (Vitamin D2) [Vitamin D2] 50,000 unit PO MOWEFR 04/04/18 [History ] Iron,Carbonyl/Ascorbic Acid [Iron 100-Vitamin C Tablet] 65 - 125 mg PO DAILY [History] Mometasone Furoate [Asmanex] 1 puff INH BID 04/04/18 [History] Multivitamin [Multiple Vitamins] 1 tab PO DAILY 04/04/18 [History] Naltrexone HCl [Revia] 25 mg PO BID 04/04/18 [History] Triamcinolone Acetonide [Triamcinolone Acetonide 0.1% Oint] 1 applic TOP BID PRN 04/04/18 [History] Zolpidem Tartrate [Ambien] 5 mg PO BEDTIME PRN 04/04/18 [History] Iron,Carbonyl/Ascorbic Acid [Vitron-C Tablet] 1 tab PO DAILY 04/17/18 [History] Acyclovir [Zovirax] 03/09/19 [History] Aspirin 81 mg PO Q6H PRN 10 Days #30 tab.chew 03/09/19 [Rx] Lidocaine 2% [Xylocaine 2% Viscous] 1 ml PO ASDIRECTED PRN 10 Days #30 cup 03/09 [Rx] Nystatin 03/09/19 [History] oxyCODONE HCl/Acetaminophen [Oxycodone-Acetaminophen 5-325] 03/09/19 [History] Past Medical History HEENT History: Reports: Other (See Below) Other HEENT History: wears glasses Cardiovascular History: Reports: Hypertension Respiratory History: Reports: Asthma, Bronchitis, Recurrent Gastrointestinal History: Reports: Cholelithiasis, Other (See Below) Other Gastrointestinal History: fatty liver Genitourinary History: Reports: Other (See Below) Other Genitourinary History: kidneys, overactive bladder 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 Depo- injections every 3 months. Genital herpes Musculoskeletal History: Reports: Back Pain, Chronic, Fracture, Fibromyalgia, Other (See Below) Other Musculoskeletal History: fx r elbow, DJD Neurological History: Reports: Migraines, Seizure Psychiatric History: Reports: ADHD, Addiction, Anxiety, Bipolar, Depression, OCD , PTSD, Schizophrenia Other Psychiatric History: Borderline personality disorder, schizoaffective disorder, self cutting behviors in past. 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 bariatric surgery 2002 Female Surgical History: Reports: Section Endocrine Surgical History: Reports: None Neurological Surgical History: Reports: Lumbar Spine Musculoskeletal Surgical History: Reports: Other (See Below) Other Musculoskeletal Surgeries/Procedures:: neuro stimulator implant to help with lower backpain, discectomy August 2015. foot surg. Dermatological Surgical History: Reports: None Social & Family History - Family History Family Medical History: Noncontributory Endocrine/Metabolic: Reports: Diabetes, type II - Tobacco Use Smoking Status *Q: Current Every Day Smoker Years of Tobacco use: 20 Packs/Tins Daily: 1 - Caffeine Use Caffeine Use: Reports: Coffee, Energy Drinks, Soda, Tea Other Caffeine Use: 4 cups of coffee ED ROS ENT - Review of Systems Review Of Systems: ROS reveals no pertinent complaints other than HPI. ED EXAM, ENT - Physical Exam Exam: See Below Exam Limited By: No Limitations General Appearance: Alert, WD/WN, Other (sucking on ice during examination ) Eye Exam: Bilateral Eye: EOMI, PERRL Ears: Normal External Exam, Normal Canal, Hearing Grossly Normal, Normal TMs Nose: Normal Inspection, Normal Mucousa, No Blood Mouth/Throat: Normal Inspection, Normal Gums, Normal Lips, Normal Oropharynx, Other (open wounds right inner lower/lip, left bucal dental margin and left lateral inferior tongue (possible recurrent biting behavior cause) multiple small bumps anterior tip of tongue). No: Normal Teeth (multiple missing teeth ) Course - Vital Signs Last Recorded V/S: Last Vital Signs Temp 36.6 C 03/09/19 14:34 Pulse 101 H 03/09/19 14:34 Resp 18 03/09/19 14:34 BP 141/92 H 03/09/19 14:34 Pulse Ox 97 03/09/19 14:34 Departure - Departure Time of Disposition: 15:05 Disposition: Home, Self-Care 01 Clinical Impression: Herpetic gingivostomatitis, Viral stomatitis, Anxiety - Discharge Information Prescriptions: Aspirin 81 mg PO Q6H PRN 10 Days #30 tab.chew PRN Reason: sore Lidocaine 2% [Xylocaine 2% Viscous] 1 ml PO ASDIRECTED PRN 10 Days #30 cup PRN Reason: Pain Instructions: Stomatitis Referrals: PCP,None [Primary Care Provider] - 2 Weeks (Oral Surgeon in [place] or [place] (may need formal referral from PCP)) Additional Instructions: MOUTH CANKER SORES 1. Increase fluid intake. 2. Magic mouthwash as directed. Chewable Baby Aspirin on lesion and topical lidocaine as directed. 3. Follow information regarding stomatitis and canker sores as directed. 4. Call Oral Surgeon in or [place] for evaluation and consultation. Avoid chewing on lip as sores may be due to behavior and recurrent lip biting). 5. See PCP in 2 weeks if symptoms continue and formal referral to Oral surgeon for evaluation and possible biopsy. Canker Sores (Mouth Ulcers): What are canker sores? Canker sores are painful shallow ulcers (sores) in the lining of the mouth, usually on the inside of lips , inside of cheeks, and gums. Your child will not get a fever from a canker sore. What is the cause? The exact cause of canker sores is not known. Some sores may result from prolonged contact with food that gets stuck in the teeth. Others may be due to forgotten injuries from toothbrushes, toothpicks, rough foods ( such as corn chips), hot foods, food allergies, or self-biting. Canker sores are not the same as cold sores. The herpes simplex virus causes cold sores ( also known as fever blisters) on the outer lip. This virus does not cause canker sores on the inside of the mouth. How long will they last? The white color of canker sores is the normal color of healing tissue in the mouth. The sores clear up in 1 to 2 weeks. Once they begin , no treatment can speed up the healing. How can I take care of my child? Pain relief:To reduce the pain, your child can swish 1 teaspoon of liquid antacid in his or her mouth for several minutes. For very young children, put a half teaspoon of a liquid antacid directly on canker sores after meals. A child over age 4 with just one sore can put an antacid tablet on the sore and let it dissolve. Do this 3 or 4 times a day. Give acetaminophen (Tylenol) or ibuprofen (Advil) as needed for pain (especially at bedtime). Diet: Offer a soft, bland diet to reduce the pain. Cold drinks and milkshakes are especially good. Avoid giving your child salty foods, citrus fruits, and spicy foods. Encourage your child to drink lots of fluids to prevent dehydration. For very young children, give fluids by cup rather than from a bottle because the nipple can increase the pain. Prevention: Canker sores tend to recur in some people. Using a soft toothbrush and brushing after all meals may prevent some sores. Be careful with toothpicks and rough foods. Try to identify any foods that might be causing the ulcers. Were tomato, citrus fruit, peppermint, cinnamon, nuts, or shellfish eaten within the last day? If you find a food that you think may be causing the problem, don't let your child eat the food for 2 weeks and then offer it again to see whether your child gets canker sores from it. If the canker sores do come back, your child should never eat that food. When should I call my child's healthcare provider? Call during office hours if: The pain becomes severe. Your child can't drink enough fluids or refuses to eat. The sores last longer than 2 weeks. You feel your child is getting worse. - Problem List & Annotations (1) Oral mucosal lesion SNOMED Code(s): 4801500382604640 Code(s): K13.70 - UNSPECIFIED LESIONS OF ORAL MUCOSA Status: Acute Current Visit: Yes - Assessment/Plan Plan: MOUTH CANKER SORES 1. Increase fluid intake. 2. Magic mouthwash as directed. Chewable Baby Aspirin on lesion and topical lidocaine as directed. 3. Follow information regarding stomatitis and canker sores as directed. 4. Call Oral Surgeon in or [place] for evaluation and consultation. Avoid chewing on lip as sores may be due to behavior and recurrent lip biting). 5. See PCP in 2 weeks if symptoms continue and formal referral to Oral surgeon for evaluation and possible biopsy.
== END 2019-03-09 15:29 | disposition home or self-care (01) ==
LOC: JP.ED 14:03
DX: B00.2 Herpesviral gingivostomatitis and pharyngotonsillitis (principal); F41.9 Anxiety disorder, unspecified; I10 Essential (primary) hypertension; J45.909 Unspecified asthma, uncomplicated; F31.9 Bipolar disorder, unspecified; F90.9 Attention-deficit hyperactivity disorder, unspecified type; F17.210 Nicotine dependence, cigarettes, uncomplicated; F43.10 Post-traumatic stress disorder, unspecified; Z79.82 Long term (current) use of aspirin; Z79.899 Other long term (current) drug therapy; Z91.040 Latex allergy status; Z88.5 Allergy status to narcotic agent
CPT/HCPCS: 99282

== ENCOUNTER 2019-04-18 09:21 | Emergency (ER) | payer MEDICARE, BC ==
--- NOTE | 2019-04-18 10:38 | EDM.PDOC ---
ED HPI GENERAL MEDICAL PROBLEM - General Chief Complaint: Upper Extremity Injury/Pain Stated Complaint: RIGHT HAND PAIN Time Seen by Provider: 04/18/19 10:31 Source of Information: Reports: Patient, Family, Old Records, RN Notes Reviewed History Limitations: Reports: Other (Anxious) - History of Present Illness INITIAL COMMENTS - FREE TEXT/NARRATIVE: 30-year-old female presents emergency department today complaint of pain in her right wrist as well as numbness and tingling in her fingers, she states this been ongoing for the last 2 days pain is quite severe she is unable to control herself because of the pain and she is very anxious. - Related Data Allergies Allergy/AdvReac Type Severity Reaction Status Date / Time latex Allergy Itching Verified 04/18/19 09:39 morphine Allergy Hives Verified 04/18/19 09:39 codeine AdvReac Vomiting Verified 04/18/19 09:39 Home Meds: Home Meds Gabapentin [Neurontin] 800 mg PO TID 06/21/13 [History] Cyclobenzaprine [Flexeril] 10 mg PO TID PRN 10/24/13 [History] Haloperidol [Haldol] 7 mg PO QAM 10/24/13 [History] Propranolol [Inderal] 20 mg PO BID 10/24/13 [History] Verapamil [Calan SR] 120 mg PO QAM 10/24/13 [History] busPIRone [Buspar] 30 mg PO BID 10/24/13 [History] lamoTRIgine [Lamictal] 200 mg PO BID 10/24/13 [History] Albuterol Sulfate [Proair Hfa] 2 inhalation INH Q4H PRN 10/25/13 [History] Fluticasone Propionate [Flovent HFA 110 MCG] 1 puff INH BID 10/25/13 [History] Ibuprofen [Motrin] 800 mg PO Q8H PRN 10/25/13 [History] Venlafaxine HCl [Venlafaxine ER] 225 mg PO DAILY 10/25/13 [History] Verapamil HCl [Verapamil ER] 240 mg PO QPM 10/25/13 [History] medroxyPROGESTERone Acetate [Depo-Provera] 150 mg IM .[id number] 02/05/16 [History ] Benztropine Mesylate 2 mg PO BID 01/04/17 [History] Chromium Amino Acid Chelate [Chromium] 400 mcg PO DAILY 07/01/17 [History] Topiramate 50 mg PO BID 07/01/17 [History] metFORMIN [Glucophage] 1,000 mg PO BIDMEALS 07/01/17 [History] Haloperidol 10 mg PO BEDTIME 07/04/17 [History] ALPRAZolam [Xanax] 1 mg PO DAILY PRN 04/04/18 [History] Ergocalciferol (Vitamin D2) [Vitamin D2] 50,000 unit PO MOWEFR 04/04/18 [History ] Iron,Carbonyl/Ascorbic Acid [Iron 100-Vitamin C Tablet] 65 - 125 mg PO DAILY [History] Mometasone Furoate [Asmanex] 1 puff INH BID 04/04/18 [History] Multivitamin [Multiple Vitamins] 1 tab PO DAILY 04/04/18 [History] Naltrexone HCl [Revia] 25 mg PO BID 04/04/18 [History] Triamcinolone Acetonide [Triamcinolone Acetonide 0.1% Oint] 1 applic TOP BID PRN 04/04/18 [History] Zolpidem Tartrate [Ambien] 5 mg PO BEDTIME PRN 04/04/18 [History] Iron,Carbonyl/Ascorbic Acid [Vitron-C Tablet] 1 tab PO DAILY 04/17/18 [History] Acyclovir [Zovirax] 03/09/19 [History] Aspirin 81 mg PO Q6H PRN 10 Days #30 tab.chew 03/09/19 [Rx] Lidocaine 2% [Xylocaine 2% Viscous] 1 ml PO ASDIRECTED PRN 10 Days #30 cup 03/09 [Rx] Nystatin 03/09/19 [History] oxyCODONE HCl/Acetaminophen [Oxycodone-Acetaminophen 5-325] 03/09/19 [History] Past Medical History HEENT History: Reports: Other (See Below) Other HEENT History: wears glasses Cardiovascular History: Reports: Hypertension Respiratory History: Reports: Asthma, Bronchitis, Recurrent Gastrointestinal History: Reports: Cholelithiasis, Other (See Below) Other Gastrointestinal History: fatty liver Genitourinary History: Reports: Other (See Below) Other Genitourinary History: kidneys, overactive bladder 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 Depo- injections every 3 months. Genital herpes Musculoskeletal History: Reports: Back Pain, Chronic, Fracture, Fibromyalgia, Other (See Below) Other Musculoskeletal History: fx r elbow, DJD Neurological History: Reports: Migraines, Seizure Psychiatric History: Reports: ADHD, Addiction, Anxiety, Bipolar, Depression, OCD , PTSD, Schizophrenia Other Psychiatric History: Borderline personality disorder, schizoaffective disorder, self cutting behviors in past. 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 bariatric surgery 2002 Female Surgical History: Reports: Section Endocrine Surgical History: Reports: None Neurological Surgical History: Reports: Lumbar Spine Musculoskeletal Surgical History: Reports: Other (See Below) Other Musculoskeletal Surgeries/Procedures:: neuro stimulator implant to help with lower backpain, discectomy August 2015. foot surg. Dermatological Surgical History: Reports: None Social & Family History - Family History Family Medical History: Noncontributory Endocrine/Metabolic: Reports: Diabetes, type II - Tobacco Use Smoking Status *Q: Current Every Day Smoker Years of Tobacco use: 20 Packs/Tins Daily: 1 - Caffeine Use Caffeine Use: Reports: Coffee Other Caffeine Use: 4 cups of coffee - Recreational Drug Use Recreational Drug Use: No Review of Systems - Review of Systems Review Of Systems: See Below Constitutional: Reports: No Symptoms Musculoskeletal: Reports: Joint Pain Neurological: Reports: Numbness, Tingling ED EXAM, GENERAL - Physical Exam Exam: See Below Free Text/Narrative:: Examination the right wrist pedal pulses +2 and unappreciated any erythema there is no edema sensation is intact she has full range of motion of all digits. Exam Limited By: Other (Extremely anxious) General Appearance: Alert, Anxious, Mild Distress Respiratory/Chest: No Respiratory Distress Course - Vital Signs Last Recorded V/S: Last Vital Signs Temp 96.3 F 04/18/19 09:44 Pulse 111 H 04/18/19 11:08 Resp 16 04/18/19 09:44 BP 155/108 H 04/18/19 11:08 Pulse Ox 99 04/18/19 11:08 - Orders/Labs/Meds Orders: Active Orders 24 hr Category Date Time Status CULTURE URINE [RM] Urgent Lab 04/18/19 12:07 Ordered LORazepam [Ativan] Med 04/18/19 10:35 Active 1 mg IM ONETIME PRN DME for Discharge [COMM] Stat Oth 04/18/19 12:12 Ordered Medication Orders Lorazepam (Ativan) 1 mg IM ONETIME PRN PRN Reason: Anxiety Last Admin: 04/18/19 10:47 Dose: 1 mg Labs: Laboratory Tests 04/18/19 04/18/19 04/18/19 Range/Units 10:47 10:47 10:47 WBC 5.8 (4.5-11.0) K/uL RBC 4.29 (3.30-5.50) M/uL Hgb 11.1 L (12.0-15.0) g/dL Hct 35.8 L (36.0-48.0) % MCV 83 (80-98) fL MCH 26 L (27-31) pg MCHC 31 L (32-36) % Plt Count 352 (150-400) K/uL Neut % (Auto) 63 (36-66) % Lymph % (Auto) 25 (24-44) % [place] % (Auto) 10 H (2-6) % Eos % (Auto) 2 (2-4) % Baso % (Auto) 0 (0-1) % D-Dimer, Quantitative < 100 (0.0-400.0) ng/mL Sodium 140 (140-148) mmol/L Potassium 4.1 (3.6-5.2) mmol/L Chloride 105 (100-108) mmol/L Carbon Dioxide 27 (21-32) mmol/L Anion Gap 7.9 (5.0-14.0) mmol/L BUN 13 (7-18) mg/dL Creatinine 1.0 (0.6-1.0) mg/dL Est Cr Clr Drug Dosing 72.79 mL/min Estimated GFR (MDRD) > 60 (>60) Glucose 87 (74-106) mg/dL Calcium 9.1 (8.5-10.1) mg/dL Total Bilirubin 0.2 (0.2-1.0) mg/dL AST 33 D (15-37) U/L ALT 51 D (12-78) U/L Alkaline Phosphatase 228 H (46-116) U/L Total Protein 6.7 (6.4-8.2) g/dL Albumin 3.6 (3.4-5.0) g/dL Globulin 3.1 (2.3-3.5) g/dL Albumin/Globulin Ratio 1.2 (1.2-2.2) Urine Color Urine Appearance Urine pH (4.5-8.0) Ur Specific [place] (1.008-1.030) Urine Protein (NEGATIVE) mg/dL Urine Glucose (UA) (NEGATIVE) mg/dL Urine Ketones (NEGATIVE) mg/dL Urine Occult Blood (NEGATIVE) Urine Nitrite (NEGATIVE) Urine Bilirubin (NEGATIVE) Urine Urobilinogen (NORMAL) mg/dL Ur Leukocyte Esterase (NEGATIVE) Urine RBC (0-5) Urine WBC (0-5) Ur Epithelial Cells Amorphous Sediment Urine Bacteria Urine Mucus Urine Opiates Screen (NEGATIVE) Ur Oxycodone Screen (NEGATIVE) Urine Methadone Screen (NEGATIVE) Ur Propoxyphene Screen (NEGATIVE) Ur Barbiturates Screen (NEGATIVE) Ur Tricyclics Screen (NEGATIVE) Ur Phencyclidine Scrn (NEGATIVE) Ur Amphetamine Screen (NEGATIVE) U Methamphetamines Scrn (NEGATIVE) Urine MDMA Screen (NEGATIVE) U Benzodiazepines Scrn (NEGATIVE) U Cocaine Metab Screen (NEGATIVE) U Marijuana (THC) Screen (NEGATIVE) 04/18/19 04/18/19 Range/Units 10:55 10:55 WBC (4.5-11.0) K/uL RBC (3.30-5.50) M/uL Hgb (12.0-15.0) g/dL Hct (36.0-48.0) % MCV (80-98) fL MCH (27-31) pg MCHC (32-36) % Plt Count (150-400) K/uL Neut % (Auto) (36-66) % Lymph % (Auto) (24-44) % [place] % (Auto) (2-6) % Eos % (Auto) (2-4) % Baso % (Auto) (0-1) % D-Dimer, Quantitative (0.0-400.0) ng/mL Sodium (140-148) mmol/L Potassium (3.6-5.2) mmol/L Chloride (100-108) mmol/L Carbon Dioxide (21-32) mmol/L Anion Gap (5.0-14.0) mmol/L BUN (7-18) mg/dL Creatinine (0.6-1.0) mg/dL Est Cr Clr Drug Dosing mL/min Estimated GFR (MDRD) (>60) Glucose (74-106) mg/dL Calcium (8.5-10.1) mg/dL Total Bilirubin (0.2-1.0) mg/dL AST (15-37) U/L ALT (12-78) U/L Alkaline Phosphatase (46-116) U/L Total Protein (6.4-8.2) g/dL Albumin (3.4-5.0) g/dL Globulin (2.3-3.5) g/dL Albumin/Globulin Ratio (1.2-2.2) Urine Color Yellow Urine Appearance Slightly cloudy Urine pH 5.0 (4.5-8.0) Ur Specific [place] 1.010 (1.008-1.030) Urine Protein Negative (NEGATIVE) mg/dL Urine Glucose (UA) Normal (NEGATIVE) mg/dL Urine Ketones Negative (NEGATIVE) mg/dL Urine Occult Blood Negative (NEGATIVE) Urine Nitrite Positive H (NEGATIVE) Urine Bilirubin Negative (NEGATIVE) Urine Urobilinogen Normal (NORMAL) mg/dL Ur Leukocyte Esterase Negative (NEGATIVE) Urine RBC Not seen (0-5) Urine WBC 0-5 (0-5) Ur Epithelial Cells Few Amorphous Sediment Not seen Urine Bacteria Many Urine Mucus Not seen Urine Opiates Screen Negative (NEGATIVE) Ur Oxycodone Screen Negative (NEGATIVE) Urine Methadone Screen Negative (NEGATIVE) Ur Propoxyphene Screen Negative (NEGATIVE) Ur Barbiturates Screen Negative (NEGATIVE) Ur Tricyclics Screen Negative (NEGATIVE) Ur Phencyclidine Scrn Negative (NEGATIVE) Ur Amphetamine Screen Positive H (NEGATIVE) U Methamphetamines Scrn Positive H (NEGATIVE) Urine MDMA Screen Negative (NEGATIVE) U Benzodiazepines Scrn Negative (NEGATIVE) U Cocaine Metab Screen Negative (NEGATIVE) U Marijuana (THC) Screen Negative (NEGATIVE) Meds: Medications Generic Name Dose Route Start Last Admin Trade Name Freq PRN Reason Stop Dose Admin Lorazepam 1 mg 04/18/19 10:35 04/18/19 10:47 Ativan IM 1 mg ONETIME PRN Administration Anxiety Discontinued Medications Generic Name Dose Route Start Last Admin Trade Name Freq PRN Reason Stop Dose Admin Ketorolac Tromethamine 60 mg 04/18/19 10:35 04/18/19 10:47 Toradol IM 04/18/19 10:36 60 mg ONETIME ONE Administration Departure - Departure Time of Disposition: 12:17 Disposition: Home, Self-Care 01 Condition: Poor ( ) Clinical Impression: Finger numbness, Methamphetamine abuse - Discharge Information Referrals: Tomy Woods MD [Primary Care Provider] - Forms: ED Department Discharge Additional Instructions: Use ibuprofen as needed for pain control, continue to use her wrist splint as needed for comfort, Please followup with your primary care provider in 3-5 days if not better, please call return to the emergency department with worsening of symptoms. - My Orders Last 24 Hours: My Active Orders 04/18/19 10:35 LORazepam [Ativan] 1 mg IM ONETIME PRN 04/18/19 12:07 CULTURE URINE [RM] Urgent 04/18/19 12:12 DME for Discharge [COMM] Stat - Assessment/Plan Last 24 Hours: My Active Orders 04/18/19 10:35 LORazepam [Ativan] 1 mg IM ONETIME PRN 04/18/19 12:07 CULTURE URINE [RM] Urgent 04/18/19 12:12 DME for Discharge [COMM] Stat Plan: Assessment Acuity = acute Site and laterality = right numbness and tingling digits complicated in a patient with methamphetamine abuse Etiology = unclear etiology Manifestations = none Location of injury = Home Lab values = CBC, CMP, d-dimer, urinalysis unremarkable x-ray unremarkable urine drug screen positive for methamphetamine Plan Prescription for ibuprofen 600 milligrams by mouth 3 times a day when necessary her follow-up with her primary care in the next 3-4 days for reevaluation. She is placed in a preformed wrist splint by nursing staff This note was dictated using [email or web address] voice recognition software please call with any questions on syntax or grammar.
[2019-04-18] MEDS: LORazepam 2 MG/ML SDV IM PRN (10:47)
[2019-04-18] MEDS: Ketorolac 60 MG/2 ML SDV IM ONE (10:47)
[2019-04-18 11:09] VITALS: BP 155/108
--- NOTE | 2019-04-18 12:01 | CRLCR ---
INDICATION: PAIN TECHNIQUE: Right wrist 3 views. COMPARISON: None. FINDINGS: Bones: Alignment is normal. No fractures or bone lesions. Joint spaces: Unremarkable. Soft tissues: Unremarkable. IMPRESSION: Unremarkable right wrist. Dictated by: Orville Montero MD @ 04/18/2019 12:01:14 (Electronically Signed)
== END 2019-04-18 12:20 | disposition home or self-care (01) ==
LOC: JP.ED 09:21
DX: R20.0 Anesthesia of skin (principal); F15.10 Other stimulant abuse, uncomplicated; I10 Essential (primary) hypertension; J45.909 Unspecified asthma, uncomplicated; F41.9 Anxiety disorder, unspecified; F32.9 Major depressive disorder, single episode, unspecified; F17.210 Nicotine dependence, cigarettes, uncomplicated; Z91.040 Latex allergy status; Z88.5 Allergy status to narcotic agent; Z88.6 Allergy status to analgesic agent; Z79.899 Other long term (current) drug therapy; Z79.82 Long term (current) use of aspirin
CPT/HCPCS: 36415; 73110; 80053; 80305; 81001; 85025; 85379; 87086; 87088; 87186; 96372; 99283; J1885; J2060

== ENCOUNTER 2019-08-17 01:35 | Emergency (ER) | payer MEDICARE, BC ==
[2019-08-17] MEDS ORDERED: diphenhydrAMINE 50 MG/ML SDV IM ONE (02:12)
[2019-08-17] MEDS ORDERED: Haloperidol Lactate 5 MG/ML SDV IM ONE (02:12)
[2019-08-17] MEDS ORDERED: LORazepam 2 MG/ML SDV IM ONE (02:12)
--- NOTE | 2019-08-17 02:39 | EDM.PDOCBH ---
ED HPI GENERAL MEDICAL PROBLEM - General Chief Complaint: Behavioral/Psych Stated Complaint: EVAL Time Seen by Provider: 08/17/19 02:11 Source of Information: Reports: Patient, Police, RN Notes Reviewed History Limitations: Reports: Altered Mental Status - History of Present Illness INITIAL COMMENTS - FREE TEXT/NARRATIVE: 39-year-old female brought in by law enforcement for psychiatric evaluation, she does have a known history of methamphetamine use as well as schizophrenia. Law enforcement was contacted as she found to have been knocking on an individual's door asking to use the phone at 1 in the morning. She is apparently staying at a local motel. She then called 911 asking for law enforcement to take her to the emergency department to have her prescriptions refilled. She is acutely psychotic at this time and irrational she has pressured speech difficult to obtain history and evaluate her. She denies any suicidal or homicidal ideation is fixated on refilling her medications of Xanax , methadone, fentanyl and oxycodone. She cannot explain who her physician is that provides this medication. She states she goes to the pain clinic. Generalized Pain Score (Numeric/FACES): 10 - Related Data Allergies Allergy/AdvReac Type Severity Reaction Status Date / Time latex Allergy Itching Verified 08/17/19 01:43 morphine Allergy Hives Verified 08/17/19 01:43 codeine AdvReac Vomiting Verified 08/17/19 01:43 Home Meds: Home Meds Gabapentin [Neurontin] 800 mg PO TID 06/21/13 [History] Cyclobenzaprine [Flexeril] 10 mg PO TID PRN 10/24/13 [History] Haloperidol [Haldol] 7 mg PO QAM 10/24/13 [History] Propranolol [Inderal] 20 mg PO BID 10/24/13 [History] Verapamil [Calan SR] 120 mg PO QAM 10/24/13 [History] busPIRone [Buspar] 30 mg PO BID 10/24/13 [History] lamoTRIgine [Lamictal] 200 mg PO BID 10/24/13 [History] Fluticasone Propionate [Flovent HFA 110 MCG] 1 puff INH BID 10/25/13 [History] Ibuprofen [Motrin] 800 mg PO Q8H PRN 10/25/13 [History] Venlafaxine HCl [Venlafaxine ER] 225 mg PO DAILY 10/25/13 [History] Verapamil HCl [Verapamil ER] 240 mg PO QPM 10/25/13 [History] Benztropine Mesylate 2 mg PO BID 01/04/17 [History] Topiramate 50 mg PO BID 07/01/17 [History] metFORMIN [Glucophage] 1,000 mg PO BIDMEALS 07/01/17 [History] Haloperidol 10 mg PO BEDTIME 07/04/17 [History] ALPRAZolam [Xanax] 1 mg PO QID 04/04/18 [History] Mometasone Furoate [Asmanex] 1 puff INH BID 04/04/18 [History] Naltrexone HCl [Revia] 25 mg PO BID 04/04/18 [History] Triamcinolone Acetonide [Triamcinolone Acetonide 0.1% Oint] 1 applic TOP BID PRN 04/04/18 [History] Zolpidem Tartrate [Ambien] 5 mg PO BEDTIME PRN 04/04/18 [History] Past Medical History HEENT History: Reports: Other (See Below) Other HEENT History: wears glasses Cardiovascular History: Reports: Hypertension Respiratory History: Reports: Asthma, Bronchitis, Recurrent Gastrointestinal History: Reports: Cholelithiasis, Other (See Below) Other Gastrointestinal History: fatty liver Genitourinary History: Reports: Other (See Below) Other Genitourinary History: kidneys, overactive bladder HOOP COILER History: Reports: , Other (See Below) Other HOOP COILER 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 Depo- injections every 3 months. Genital herpes Musculoskeletal History: Reports: Back Pain, Chronic, Fracture, Fibromyalgia, Other (See Below) Other Musculoskeletal History: fx r elbow, DJD Neurological History: Reports: Migraines, Seizure Psychiatric History: Reports: ADHD, Addiction, Anxiety, Bipolar, Depression, OCD , PTSD, Schizophrenia Other Psychiatric History: Borderline personality disorder, schizoaffective disorder, self cutting behviors in past. 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 bariatric surgery 2003 Female Surgical History: Reports: Section Endocrine Surgical History: Reports: None Neurological Surgical History: Reports: Lumbar Spine Musculoskeletal Surgical History: Reports: Other (See Below) Other Musculoskeletal Surgeries/Procedures:: neuro stimulator implant to help with lower backpain, discectomy August 2015. foot surg. Dermatological Surgical History: Reports: None Social & Family History - Family History Family Medical History: Noncontributory Endocrine/Metabolic: Reports: Diabetes, type II - Tobacco Use Smoking Status *Q: Current Every Day Smoker Years of Tobacco use: 20 Packs/Tins Daily: 1.5 - Caffeine Use Caffeine Use: Reports: None Other Caffeine Use: 4 cups of coffee - Recreational Drug Use Recreational Drug Use: No ED ROS GENERAL - Review of Systems Review Of Systems: Unable To Obtain ED EXAM, BEHAVIORAL HEALTH - Physical Exam Exam: See Below Text/Narrative:: Refused physical exam Exam Limited By: Altered Mental Status General Appearance: Alert, Moderate Distress Respiratory/Chest: No Respiratory Distress Psychiatric: Alert, Restless, Tearful, Agitated, Inattentive, Poor Eye Contact, Flight of Ideas, Tangential Thoughts, Grandiose Thoughts, Pressured Speech. No : Suicidal Plan, Suicidal Thoughts, Auditory Hallucinations, Visual Hallucinations, Paranoid Thoughts, Threatening Behavior COURSE, BEHAVIORAL HEALTH COMP - Course Vital Signs: Last Vital Signs Temp 96.5 F 08/17/19 02:00 Pulse 126 H 08/17/19 02:00 Resp 20 08/17/19 02:00 BP Pulse Ox 95 08/17/19 02:00 Orders, Labs, Meds: Medications Discontinued Medications Generic Name Dose Route Start Last Admin Trade Name Freq PRN Reason Stop Dose Admin Diphenhydramine HCl 50 mg 08/17/19 02:12 08/17/19 02:25 Benadryl IM 08/17/19 02:13 50 mg ONETIME ONE Administration Haloperidol Lactate 10 mg 08/17/19 02:12 08/17/19 02:25 Haldol IM 08/17/19 02:13 10 mg ONETIME ONE Administration Lorazepam 2 mg 08/17/19 02:12 08/17/19 02:25 Ativan IM 08/17/19 02:13 2 mg ONETIME ONE Administration Departure - Departure Time of Disposition: 02:43 Disposition: Against Medical Advice 07 Condition: Poor Clinical Impression: Psychosis Qualifiers: Psychosis type: schizophrenia Schizophrenia type: disorganized schizophrenia Qualified Code(s): F20.1 - Disorganized schizophrenia - Discharge Information Referrals: PCP,None [Primary Care Provider] - - Assessment/Plan Plan: Assessment Acuity = acute Site and laterality = psychosis Etiology = unknown suspicious for methamphetamine use Manifestations = none Location of injury = Home Lab values = none Plan She did agree to receive medications that help her relax IM form. Therefore she was provided 10 mg Haldol 2 mg Ativan and 50 mg Benadryl. Unfortunately after giving these medications she refused to stay, stated she wanted to go home , law enforcement was present they agreed to follow her home, we believe she is currently residing at the [facility] which is approximately a 20 [address] from the hospital. This note was dictated using [employer] voice recognition software please call with any questions on syntax or grammar.
[2019-08-17 03:48] VITALS: PULSE 126
== END 2019-08-17 02:46 | disposition left against medical advice (07) ==
LOC: JP.ED 01:35
DX: F29 Unspecified psychosis not due to a substance or known physiological condition (principal); F20.1 Disorganized schizophrenia; I10 Essential (primary) hypertension; F41.9 Anxiety disorder, unspecified; F32.9 Major depressive disorder, single episode, unspecified; E11.9 Type 2 diabetes mellitus without complications; J45.909 Unspecified asthma, uncomplicated; Z88.5 Allergy status to narcotic agent; Z91.040 Latex allergy status; F17.210 Nicotine dependence, cigarettes, uncomplicated; Z79.51 Long term (current) use of inhaled steroids; Z79.84 Long term (current) use of oral hypoglycemic drugs; Z79.899 Other long term (current) drug therapy
CPT/HCPCS: 96372; 99284; J1200; J1630; J2060

== ENCOUNTER 2020-03-18 11:34 | Day surgery (SDC) | payer MEDICARE, BC ==
[~2020-03-18 11:34] MED LIST changes: -Acetaminophen 500 MG Tab PO ONE; -Bupivacaine 0.5%/EPINEPHrine 1:200,000 50 ML MDV ONE; -Dexamethasone 4 MG/ML SDV ONE; -Dextrose 5%-Lactated Ringers 1,000 ML IV SCH; -Gabapentin 400 MG Cap PO ONE; -Glycopyrrolate 0.2 MG/ML 5 ML MDV ONE; +Lidocaine 0.5% 50 ML SDV ONE; +Lidocaine 1% 20 ML MDV ONE; +Midazolam 1 MG/ML 2 ML SDV ONE; -Neostigmine Methylsulfate 1 MG/ML 5 ML Syringe ONE; +Nozin Nasal Sanitizer NASBOTH ONE; -Ondansetron 4 MG/2 ML SDV ONE; -Rocuronium 50 MG/5 ML Vial ONE; +Sodium Chloride 0.9% 1,000 ML IV SCH; -Succinylcholine 200 MG/10 ML MDV ONE; +ceFAZolin 2 GM in Premix Bag 1 BAG IV ONE; +fentaNYL 100 MCG/2 ML SDV ONE
[2020-03-18] MEDS ORDERED: Midazolam 1 MG/ML 2 ML SDV ONE (12:19)
[2020-03-18] MEDS ORDERED: Propofol 200 MG/20 ML SDV ONE (12:19)
[2020-03-18] MEDS ORDERED: fentaNYL 100 MCG/2 ML SDV ONE (12:19)
[2020-03-18 13:47] VITALS: BP 122/66; PULSE 100
== END 2020-03-18 14:00 | disposition home or self-care (01) ==
LOC: JP.SDS 11:34
PROVIDERS: ATTEND Orthopaedic Surgery
DX: G56.02 Carpal tunnel syndrome, left upper limb (principal); I10 Essential (primary) hypertension; E66.9 Obesity, unspecified; F41.9 Anxiety disorder, unspecified; F17.210 Nicotine dependence, cigarettes, uncomplicated; J45.909 Unspecified asthma, uncomplicated; F31.9 Bipolar disorder, unspecified; Z88.5 Allergy status to narcotic agent; Z68.27 Body mass index [BMI] 27.0-27.9, adult; Z79.899 Other long term (current) drug therapy; Z91.040 Latex allergy status; Z79.51 Long term (current) use of inhaled steroids
CPT/HCPCS: 64721; 81025; A9270; J0690; J2001; J2250; J2704; J3010; J7030